=== PATIENT | female | born 1965 | race Caucasian/White ===

== ENCOUNTER 2018-03-09 14:15 | Emergency (ER) | payer OTHER ==
--- NOTE | 2018-03-09 14:46 | ERPHSYRPT ---
- History of Present Illness Time Seen by Provider: 03/09/18 14:38 Historian: patient Exam Limitations: no limitations Patient Subjective Stated Complaint: Pt states "I woke up monday morning and I was having chest pain that was also in my arm and back. It hurts more when I move so I just thought it was a muscle strain, but I did not do anything strenuous." Triage Nursing Assessment: Pt alert and oriented X 3, skin pwd. Pt ambulates with an upright steady gait, able to speak in clear full sentences. PT in no apprent respiratory distress, pt laughing and jokeing. Physician History: The patient is a 52-year-old female complaining that she woke up 2 days ago on Monday morning with left upper chest pain that was radiating around under her left arm. She went to work on Monday. She had no difficulties. The pain continued and has now moved up into her left upper shoulder and her left neck. She denies shortness of breath. She denies nausea or vomiting. It hurts when she raises her left arm. She has no history of coronary artery disease. Her past medical history is significant for hypertension. She did not take her antihypertensive medicine this morning. Timing/Duration: day(s), constant, gradual onset Activities at Onset: rest Quality: aching Location: substernal Chest Pain Radiation: neck, arm Severity of Pain-Max: mild Severity of Pain-Current: mild Modifying Factors: Improves With: movement Associated Symptoms: denies symptoms Prior Chest Pain/Cardiac Workup: no prior chest pain Nitro Today/Relief: no nitro taken today Aspirin Treatment Today: no aspirin today Allergies/Adverse Reactions: levofloxacin [From Levaquin] Allergy (Mild, Verified 06/04/12 08:13) rash, itching morphine Allergy (Verified 06/04/12 09:55) Home Medications: Furosemide 40 mg [Lasix 40 MG] 40 mg PO DAILY 08/08/12 [History] Levothyroxine Sodium [Synthroid] 200 mcg PO DAILY 08/09/12 [History] Lisinopril 10 mg [Zestril 10 MG] 10 mg PO DAILY 08/09/12 [History] Hx Tetanus, Diphtheria Vaccination/Date Given: No Hx Influenza Vaccination/Date Given: Yes Hx Pneumococcal Vaccination/Date Given: No Immunizations Up to Date: Yes - Review of Systems Constitutional: No Fever, No Chills Eyes: No Symptoms Ears, Nose, & Throat: No Symptoms Respiratory: No Cough, No Dyspnea Cardiac: Chest Pain Abdominal/Gastrointestinal: No Abdominal Pain, No Nausea, No Vomiting, No Diarrhea Genitourinary Symptoms: No Dysuria Musculoskeletal: Neck Pain Skin: No Rash Neurological: No Dizziness, No Focal Weakness, No Sensory Changes Psychological: No Symptoms Endocrine: No Symptoms Hematologic/Lymphatic: No Symptoms Immunological/Allergic: No Symptoms All Other Systems: Reviewed and Negative - Past Medical History Pertinent Past Medical History: Yes Neurological History: No Pertinent History ENT History: No Pertinent History Cardiac History: Hypertension Respiratory History: No Pertinent History Endocrine Medical History: No Pertinent History Musculoskeletal History: No Pertinent History GI Medical History: No Pertinent History History: No Pertinent History Psycho-Social History: No Pertinent History Female Reproductive Disorders: Fibroids - Past Surgical History Past Surgical History: Yes Neuro Surgical History: No Pertinent History Cardiac: No Pertinent History Respiratory: No Pertinent History Gastrointestinal: Cholecystectomy Genitourinary: No Pertinent History Musculoskeletal: No Pertinent History, Orthopedic Surgery Female Surgical History: No Pertinent History Other Surgical History: FOOT SURGERY - Social History Smoking Status: Never smoker How long have you smoked: 4yrs Exposure to second hand smoke: No Drug Use: none Patient Lives Alone: Yes - Female History Hx Last Menstrual Period: years ago Hx Now: No - Nursing Vital Signs Nursing Vital Signs: Initial Vital Signs Temperature 98.6 F 03/09/18 14:15 Pulse Rate 112 H 03/09/18 14:15 Respiratory Rate 18 03/09/18 14:15 Blood Pressure 196/125 03/09/18 14:15 O2 Sat by Pulse Oximetry 98 03/09/18 14:15 Pain Scale Pain Intensity 6 - Physical Exam General Appearance: no apparent distress, alert Eye Exam: PERRL/EOMI, eyes nml inspection Ears, Nose, Throat Exam: normal ENT inspection, moist mucous membranes Neck Exam: other (left side tenderness) Respiratory Exam: chest tenderness (left upper anterior, and left shoulder.) Cardiovascular Exam: regular rate/rhythm, normal heart sounds Gastrointestinal/Abdomen Exam: soft, No tenderness, No mass Pelvic Exam: not done Rectal Exam: not done Back Exam: normal inspection, No CVA tenderness, No vertebral tenderness Extremity Exam: normal inspection, normal range of motion Neurologic Exam: alert, oriented x 3, cooperative, normal mood/affect, sensation nml, No motor deficits Skin Exam: normal color, warm, dry SpO2 Interpretation: normal SpO2: 98 Oxygen Delivery: Room Air - Course EKG Interpreted by Me: RATE, Sinus Rhythm, NORMAL AXIS, NORMAL INTERVALS, NORMAL QRS, NORMAL ST-T - Radiology Exams Chest X-ray Interpretation: Reviewed by me, Teleradiologist Report (per Dr Natalie villasenor get around), Negative (there is 91) Ordered Tests: Active Orders 24 hr Category Date Time Status Mental Health Aide STAT Care 03/09/18 14:53 Active EKG-ER Only STAT Care 03/09/18 14:52 Active IV Insertion STAT Care 03/09/18 14:52 Active Pulse Oximetry (ED) STAT Care 03/09/18 14:52 Active CHEST 2 VIEWS (PA AND LAT) Stat Exams 03/09/18 14:52 Completed CBC W DIFF Stat Lab 03/09/18 14:52 Completed CMP Stat Lab 03/09/18 14:52 Completed TROPONIN Q3H Lab 03/09/18 15:00 Completed TROPONIN Q3H Lab 03/09/18 18:00 Ordered TROPONIN Q3H Lab 03/09/18 21:00 Ordered TROPONIN Q3H Lab 03/10/18 00:00 Ordered TROPONIN Q3H Lab 03/10/18 03:00 Ordered Medication Summary Discontinued Medications Generic Name Dose Route Start Last Admin Trade Name Freq PRN Reason Stop Dose Admin Ketorolac Tromethamine 30 mg 03/09/18 14:53 03/09/18 15:06 Toradol 30 Mg Injection IV 03/09/18 14:54 30 mg STAT ONE Administration Ketorolac Tromethamine Confirm 03/09/18 14:57 Toradol 30 Mg Injection Administered 03/09/18 14:58 Dose 30 mg .ROUTE .STK-MED ONE Labetalol HCl 20 mg 03/09/18 14:53 03/09/18 15:06 Trandate 20 Mg/5 Ml Syringe IV 03/09/18 14:54 20 mg STAT ONE Administration Labetalol HCl Confirm 03/09/18 14:57 Trandate 20 Mg/5 Ml Syringe Administered 03/09/18 14:58 Dose 20 mg IV .STK-MED ONE Lab/Rad Data: Laboratory Result Diagrams 03/09/18 14:52 03/09/18 14:52 Laboratory Results 03/09/18 03/09/18 03/09/18 Range/Units 15:00 14:52 14:52 WBC 13.5 H (4.0-10.5) K/mm3 RBC 5.65 H (4.1-5.4) M/mm3 Hgb 14.0 (12.0-16.0) gm/dl Hct 44.1 (35-47) % MCV 78.1 (78-100) fl MCH 24.7 L (26-32) pg MCHC 31.7 L (32-36) g/dl RDW 15.8 H (11.5-14.0) % Plt Count 341 (150-450) K/mm3 MPV 11.6 H (6-9.5) fl Gran % 61.4 (36.0-66.0) % Eos # (Auto) 0.19 (0-0.5) Absolute Lymphs (auto) 3.84 (1.0-4.6) Absolute Monos (auto) 1.12 (0.0-1.3) Lymphocytes % 28.5 (24.0-44.0) % Monocytes % 8.3 (0.0-12.0) % Eosinophils % 1.4 (0.00-5.0) % Basophils % 0.4 (0.0-0.4) % Absolute Granulocytes 8.26 H (1.4-6.9) Basophils # 0.06 (0-0.4) Sodium 140 (137-145) mmol/L Potassium 3.9 (3.5-5.1) mmol/L Chloride 101 (98-107) mmol/L Carbon Dioxide 27 (22-30) mmol/L Anion Gap 14.8 (5-15) MEQ/L BUN 16 (7-17) mg/dL Creatinine 0.67 (0.52-1.04) mg/dL Estimated GFR > 60.0 ML/MIN Glucose 131 H (74-106) mg/dL Calcium 9.5 (8.4-10.2) mg/dL Total Bilirubin 0.30 (0.2-1.3) mg/dL AST 18 (14-36) U/L ALT 23 (0-35) U/L Alkaline Phosphatase 132 H (38-126) U/L Troponin I < 0.012 (0.000-0.034) ng/mL Serum Total Protein 7.3 (6.3-8.2) g/dL Albumin 4.2 (3.5-5.0) g/dL - Progress Progress: improved Counseled pt/family regarding: lab results, diagnosis, need for follow-up, rad results - Departure Time of Disposition: 15:47 Departure Disposition: Home Clinical Impression: Musculoskeletal pain Condition: Stable Critical Care Time: No Critical Care Time(excluding separately billable procedures): 30-74 minutes Referrals: VALENTIN HERNANDEZ MD [Primary Care Provider] - Additional Instructions: You have musculoskeletal pain of your left shoulder and upper left chest. You were given Toradol 30 mg by IV in the ER. Your chest x-ray and your laboratory results were all good. The specific test of your heart was negative for any damage. Your EKG was normal. Take Tylenol and ibuprofen as needed. Apply ice to the area as needed.
[2018-03-09] MEDS ORDERED: TORAdol 30 mg Injection IV ONE (14:53)
[2018-03-09] MEDS ORDERED: TRANDATE 20 MG/5 ML SYRINGE IV ONE ×2 (14:53→14:57)
[2018-03-09] MEDS ORDERED: TORAdol 30 mg Injection ONE (14:57)
[2018-03-09 15:00] LABS: BASOPHIL % 0.4 % (0.0-0.4); Basophil (Absolute #) 0.06 (0-0.4); Eosinophil % 1.4 % (0.00-5.0); Eosinophil (Absolute #) 0.19 (0-0.5); Granulocyte Absolute (ANC) 8.26 (1.4-6.9); Granulocytes % 61.4 % (36.0-66.0); Hematocrit 44.1 % (35-47); Lymphocyte (Absolute #) 3.84 (1.0-4.6); Lymphocytes % 28.5 % (24.0-44.0); Mean Cell Volume 78.1 fl (78-100); Mean Corpuscular Hgb Concent. 31.7 g/dl (32-36); Mean Platelet Volume 11.6 fl (6-9.5); Monocyte (Absolute #) 1.12 (0.0-1.3); Monocytes % 8.3 % (0.0-12.0); Platelet Count 341 K/mm3 (150-450); Red Blood Count 5.65 M/mm3 (4.1-5.4); Red Cell Distribution Width 15.8 % (11.5-14.0); White Blood Count 13.5 K/mm3 (4.0-10.5)
[2018-03-09 15:09] LABS: Mean Corpuscular Hemoglobin 24.7 pg (26-32)
[2018-03-09 15:10] VITALS: O2SAT 98
[2018-03-09 15:10] LABS: ALBUMIN 4.2 g/dL (3.5-5.0); ALKALINE PHOSPHATASE 132 U/L (38-126); ANION GAP 14.8 MEQ/L (5-15); BLOOD UREA NITROGEN 16 mg/dL (7-17); CHLORIDE 101 mmol/L (98-107); Calcium 9.5 mg/dL (8.4-10.2); Carbon Dioxide 27 mmol/L (22-30); Creatinine 1 0.67 mg/dL (0.52-1.04); Glucose 131 mg/dL (74-106); Potassium 3.9 mmol/L (3.5-5.1); SGOT/AST 18 U/L (14-36); SGPT/ALT 23 U/L (0-35); SODIUM 140 mmol/L (137-145); Total Protein 7.3 g/dL (6.3-8.2)
--- NOTE | 2018-03-09 15:22 | XRAY ---
Indication: Chest pain. Comparison: April 18, 2011. PA/lateral chest again demonstrates normal heart and lungs. Bony thorax intact again with mild degenerative changes. No new/acute findings.
[2018-03-09 15:53] VITALS: BP 156/101; PULSE 72
== END 2018-03-09 16:00 | disposition home or self-care (01) ==
LOC: ED 14:15
DX: M79.18 Myalgia, other site (principal); R07.9 Chest pain, unspecified; M54.2 Cervicalgia; M25.512 Pain in left shoulder; Z79.899 Other long term (current) drug therapy
CPT/HCPCS: 36000; 36415; 71046; 80053; 84484; 85025; 93005; 93041; 96374; 96375; 99284; J1885

== ENCOUNTER 2018-08-03 15:56 | Observation (INO) | payer OTHER, SELFPAY ==
[2018-08-03] MEDS ORDERED: Sodium Chloride 0.9% 1000 ML 1,000 ML IV STA (17:00)
--- NOTE | 2018-08-03 17:06 | ERPHSYRPT ---
- History of Present Illness Time Seen by Provider: 08/03/18 16:54 Source: patient Exam Limitations: no limitations Patient Subjective Stated Complaint: Pt states "I have been to [facility] twice in the past two weeks, I was just over to [facility] office and she gave me some orders then she said to get faster results to just come to the ED. I have had body aches, chills, and fever for two weeks." Triage Nursing Assessment: PT alert and oriented X 3, skin pwd Pt ambulates with an upright steady gait, able to speak in clear full sentences. PT in no apprent respiratory distress. Physician History: 53-year-old white female with history of high blood pressure fibroids arrives with complaint of general malaise, aches, fever, symptoms going on since 22 July. Patient without vomiting positive nausea positive diarrhea. Patient has been seen by [facility] 2 times seen by her clinic 2 times she was seen today by her clinic and told to present to the emergency room. Past medical history includes high blood pressure, fibroids. Past surgical history includes cholecystectomy, orthopedic surgery, foot surgery , total hysterectomy Timing/Duration: week(s) (symptoms for 3 weeks) Severity: moderate Modifying Factors: Improves With: nothing Associated Symptoms: nausea, abdominal pain (left lower quadrant abdominal pian) , fever, malaise, No vomiting, No shortness of breath, No heartburn, No diaphoresis, No chills, No chest pain, No headaches, No loss of appetite, No rash, No syncope, No seizure, No weakness Allergies/Adverse Reactions: levofloxacin [From Levaquin] Allergy (Mild, Verified 06/04/12 08:13) rash, itching morphine Allergy (Verified 06/04/12 09:55) Home Medications: Furosemide 40 mg [Lasix 40 MG] 40 mg PO DAILY 08/08/12 [History] Levothyroxine Sodium [Synthroid] 200 mcg PO DAILY 08/09/12 [History] Lisinopril 10 mg [Zestril 10 MG] 10 mg PO DAILY 08/09/12 [History] Hx Tetanus, Diphtheria Vaccination/Date Given: No Hx Influenza Vaccination/Date Given: Yes Hx Pneumococcal Vaccination/Date Given: No Immunizations Up to Date: Yes - Review of Systems Constitutional: Malaise, No Fever, No Chills, No Fatigue, No Lethargy, No Night Sweats, No Weakness, No Weight Loss Eyes: No Symptoms Ears, Nose, & Throat: No Symptoms, No Ear Pain, No Ear Discharge, No Hearing Changes, No Tinnitus, No Nose Pain, No Nose Congestion, No Nose Discharge, No Sinus Drainage, No Epistaxis, No Mouth Pain, No Mouth Swelling, No Loose Teeth, No Throat Pain, No Throat Swelling, No Hoarse, No Painful Swallowing, No Snoring , No Stridor Respiratory: Cough, No Dyspnea, No Dyspnea on Exertion (PURCELL), No Stridor, No Wheezing Cardiac: No Chest Pain, No Edema, No Syncope Abdominal/Gastrointestinal: Abdominal Pain (left lower quadrant abdominal pain) , Nausea, Diarrhea, No Vomiting, No Constipation, No Hematemesis, No Hematochezia, No Melena, No Dysphagia, No Appetite Changes Genitourinary Symptoms: No Dysuria Musculoskeletal: No Symptoms Skin: No Rash Neurological: No Dizziness, No Focal Weakness, No Sensory Changes Psychological: No Symptoms Endocrine: No Symptoms All Other Systems: Reviewed and Negative - Past Medical History Pertinent Past Medical History: Yes Neurological History: No Pertinent History ENT History: No Pertinent History Cardiac History: Hypertension Respiratory History: No Pertinent History Endocrine Medical History: No Pertinent History Musculoskeletal History: No Pertinent History GI Medical History: No Pertinent History History: No Pertinent History Psycho-Social History: No Pertinent History Female Reproductive Disorders: Fibroids - Past Surgical History Past Surgical History: Yes Neuro Surgical History: No Pertinent History Cardiac: No Pertinent History Respiratory: No Pertinent History Gastrointestinal: Cholecystectomy Genitourinary: No Pertinent History Musculoskeletal: No Pertinent History, Orthopedic Surgery Female Surgical History: No Pertinent History Other Surgical History: FOOT SURGERY - Social History Smoking Status: Former smoker How long have you smoked: 4yrs Exposure to second hand smoke: No Drug Use: none Patient Lives Alone: Yes - Female History Hx Last Menstrual Period: total hysterectomy Hx Now: No - Nursing Vital Signs Nursing Vital Signs: Initial Vital Signs Temperature 99.6 F 08/03/18 16:07 Pulse Rate 116 H 08/03/18 16:07 Respiratory Rate 20 08/03/18 16:07 Blood Pressure 143/88 08/03/18 16:07 O2 Sat by Pulse Oximetry 94 L 08/03/18 16:07 Pain Scale Pain Intensity 6 - Physical Exam General Appearance: no apparent distress, alert Eye Exam: PERRL/EOMI, eyes nml inspection Ears, Nose, Throat Exam: normal ENT inspection, TMs normal, pharynx normal, moist mucous membranes Neck Exam: normal inspection, non-tender, supple, full range of motion Respiratory Exam: normal breath sounds, lungs clear, No respiratory distress Cardiovascular Exam: regular rate/rhythm, normal heart sounds, normal peripheral pulses Gastrointestinal/Abdomen Exam: soft, normal bowel sounds, tenderness (left lower quadrant tenderness), No distention, No mass, No guarding, No ecchymosis, No pulsatile mass, No rebound, No hernia, No hepatomegaly, No organomegaly, No splenomegaly Back Exam: normal inspection, normal range of motion, No CVA tenderness, No vertebral tenderness Extremity Exam: normal inspection Neurologic Exam: alert, oriented x 3, cooperative, bull riveter II-XII nml as tested, normal mood/affect, nml cerebellar function, nml station & gait, sensation nml, No motor deficits Skin Exam: normal color, warm, dry, No rash SpO2 Interpretation: normal (94%) SpO2: 94 - Course Nursing assessment & vital signs reviewed: Yes - Radiology Exams Chest X-ray Interpretation: Interpreted by me (chest x-ray: No acute disease process noted. Compared to March 09 2018) - CT Exams Abdomen/Pelvis CT Interpretation: Discussed w/radiologist (CT abdomen and pelvis: Impression compared to March 16, 2012, stable small hiatal hernia and small left adrenal adenoma. new mild wall thickening left hemicolon with fluid leveling. Possible colitis. No free fluid or air.new moderate sized infraumbilical fatty ventral hernia.) Ordered Tests: Active Orders 24 hr Category Date Time Status IV Insertion STAT Care 08/03/18 17:00 Active ABDOMEN AND PELVIS W/0 CONTRAS [CT] Stat Exams 08/03/18 18:10 Taken CHEST 1 VIEW (PORTABLE) Stat Exams 08/03/18 17:00 Taken AMYLASE Stat Lab 08/03/18 17:10 Completed BLOOD CULTURE Stat Lab 08/03/18 17:20 Received CBC W DIFF Stat Lab 08/03/18 17:10 Completed CMP Stat Lab 08/03/18 17:10 Completed LIPASE Stat Lab 08/03/18 17:10 Completed Howard Screen Stat Lab 08/03/18 17:10 Completed TSH [TSH, 3RD Generation] Stat Lab 08/03/18 17:10 Completed UA W/RFX UR CULTURE Stat Lab 08/03/18 19:12 Completed Medication Summary Discontinued Medications Generic Name Dose Route Start Last Admin Trade Name Sonia PRN Reason Stop Dose Admin Sodium Chloride 1,000 mls @ 999 mls/hr 08/03/18 17:00 08/03/18 18:53 Sodium Chloride 0.9% 1000 Ml IV 08/03/18 18:00 Infused .Q1H1M STA Infusion Sodium Chloride Confirm 08/03/18 17:13 Sodium Chloride 0.9% 1000 Ml Administered 08/03/18 17:14 Dose 1,000 mls @ ud .ROUTE .STK-MED ONE Lab/Rad Data: Laboratory Result Diagrams 08/03/18 17:10 08/03/18 17:10 Laboratory Results 08/03/18 08/03/18 08/03/18 Range/Units 19:12 17:10 17:10 WBC (4.0-10.5) K/mm3 RBC (4.1-5.4) M/mm3 Hgb (12.0-16.0) gm/dl Hct (35-47) % MCV (78-100) fl MCH (26-32) pg MCHC (32-36) g/dl RDW (11.5-14.0) % Plt Count (150-450) K/mm3 MPV (6-9.5) fl Gran % (36.0-66.0) % Eos # (Auto) (0-0.5) Absolute Lymphs (auto) (1.0-4.6) Absolute Monos (auto) (0.0-1.3) Lymphocytes % (24.0-44.0) % Monocytes % (0.0-12.0) % Eosinophils % (0.00-5.0) % Basophils % (0.0-0.4) % Absolute Granulocytes (1.4-6.9) Basophils # (0-0.4) Sodium (137-145) mmol/L Potassium (3.5-5.1) mmol/L Chloride (98-107) mmol/L Carbon Dioxide (22-30) mmol/L Anion Gap (5-15) MEQ/L BUN (7-17) mg/dL Creatinine (0.52-1.04) mg/dL Estimated GFR ML/MIN Glucose (74-106) mg/dL Calcium (8.4-10.2) mg/dL Total Bilirubin (0.2-1.3) mg/dL AST (14-36) U/L ALT (0-35) U/L Alkaline Phosphatase (38-126) U/L Serum Total Protein (6.3-8.2) g/dL Albumin (3.5-5.0) g/dL Amylase (30-110) U/L Lipase (23-300) U/L Free T4 1.33 (0.76-1.46) ng/dL TSH 3rd Generation (0.47-4.68) mIU/L Urine Color CLAUDIA (YELLOW) Urine Appearance SLIGHTLY CLOUDY (CLEAR) Urine pH 5.0 (5-6) Ur Specific Luana 1.018 (1.005-1.025) Urine Protein 30 (Negative) Urine Ketones NEGATIVE (NEGATIVE) Urine Blood NEGATIVE (0-5) Lamont/ul Urine Nitrite NEGATIVE (NEGATIVE) Urine Bilirubin NEGATIVE (NEGATIVE) Urine Urobilinogen NEGATIVE (0-1) mg/dL Ur Leukocyte Esterase NEGATIVE (NEGATIVE) Urine WBC (Auto) 0-2 (0-5) /HPF Urine RBC (Auto) NONE (0-2) /HPF U Epithel Cells (Auto) RARE (FEW) /HPF Urine Bacteria (Auto) FEW (NEGATIVE) /HPF Urine Mucus (Auto) SLIGHT (NEGATIVE) /HPF Urine Culture Reflexed NO (NO) Urine Glucose NEGATIVE (NEGATIVE) mg/dL Monoscreen (Negative) Group A Strep Antibody NEGATIVE (NEGATIVE) Slides for Path Review 08/03/18 08/03/18 08/03/18 Range/Units 17:10 17:10 17:10 WBC (4.0-10.5) K/mm3 RBC (4.1-5.4) M/mm3 Hgb (12.0-16.0) gm/dl Hct (35-47) % MCV (78-100) fl MCH (26-32) pg MCHC (32-36) g/dl RDW (11.5-14.0) % Plt Count (150-450) K/mm3 MPV (6-9.5) fl Gran % (36.0-66.0) % Eos # (Auto) (0-0.5) Absolute Lymphs (auto) (1.0-4.6) Absolute Monos (auto) (0.0-1.3) Lymphocytes % (24.0-44.0) % Monocytes % (0.0-12.0) % Eosinophils % (0.00-5.0) % Basophils % (0.0-0.4) % Absolute Granulocytes (1.4-6.9) Basophils # (0-0.4) Sodium 136 L (137-145) mmol/L Potassium 3.7 (3.5-5.1) mmol/L Chloride 99 (98-107) mmol/L Carbon Dioxide 27 (22-30) mmol/L Anion Gap 13.9 (5-15) MEQ/L BUN 14 (7-17) mg/dL Creatinine 0.92 (0.52-1.04) mg/dL Estimated GFR > 60.0 ML/MIN Glucose 140 H (74-106) mg/dL Calcium 8.9 (8.4-10.2) mg/dL Total Bilirubin 0.70 (0.2-1.3) mg/dL AST 36 (14-36) U/L ALT 34 (0-35) U/L Alkaline Phosphatase 118 (38-126) U/L Serum Total Protein 7.4 (6.3-8.2) g/dL Albumin 3.9 (3.5-5.0) g/dL Amylase 57 (30-110) U/L Lipase 18 L (23-300) U/L Free T4 (0.76-1.46) ng/dL TSH 3rd Generation 0.456 L (0.47-4.68) mIU/L Urine Color (YELLOW) Urine Appearance (CLEAR) Urine pH (5-6) Ur Specific Luana (1.005-1.025) Urine Protein (Negative) Urine Ketones (NEGATIVE) Urine Blood (0-5) Lamont/ul Urine Nitrite (NEGATIVE) Urine Bilirubin (NEGATIVE) Urine Urobilinogen (0-1) mg/dL Ur Leukocyte Esterase (NEGATIVE) Urine WBC (Auto) (0-5) /HPF Urine RBC (Auto) (0-2) /HPF U Epithel Cells (Auto) (FEW) /HPF Urine Bacteria (Auto) (NEGATIVE) /HPF Urine Mucus (Auto) (NEGATIVE) /HPF Urine Culture Reflexed (NO) Urine Glucose (NEGATIVE) mg/dL Monoscreen NEGATIVE (Negative) Group A Strep Antibody (NEGATIVE) Slides for Path Review 08/03/18 Range/Units 17:10 WBC 19.7 H (4.0-10.5) K/mm3 RBC 6.26 H* (4.1-5.4) M/mm3 Hgb 15.4 (12.0-16.0) gm/dl Hct 47.4 H (35-47) % MCV 75.7 L (78-100) fl MCH 24.6 L (26-32) pg MCHC 32.5 (32-36) g/dl RDW 17.7 H (11.5-14.0) % Plt Count 300 (150-450) K/mm3 MPV 10.9 H (6-9.5) fl Gran % 82.8 H (36.0-66.0) % Eos # (Auto) 0.01 (0-0.5) Absolute Lymphs (auto) 1.75 (1.0-4.6) Absolute Monos (auto) 1.58 H (0.0-1.3) Lymphocytes % 8.9 L (24.0-44.0) % Monocytes % 8.0 (0.0-12.0) % Eosinophils % 0.1 (0.00-5.0) % Basophils % 0.2 (0.0-0.4) % Absolute Granulocytes 16.36 H (1.4-6.9) Basophils # 0.04 (0-0.4) Sodium (137-145) mmol/L Potassium (3.5-5.1) mmol/L Chloride (98-107) mmol/L Carbon Dioxide (22-30) mmol/L Anion Gap (5-15) MEQ/L BUN (7-17) mg/dL Creatinine (0.52-1.04) mg/dL Estimated GFR ML/MIN Glucose (74-106) mg/dL Calcium (8.4-10.2) mg/dL Total Bilirubin (0.2-1.3) mg/dL AST (14-36) U/L ALT (0-35) U/L Alkaline Phosphatase (38-126) U/L Serum Total Protein (6.3-8.2) g/dL Albumin (3.5-5.0) g/dL Amylase (30-110) U/L Lipase (23-300) U/L Free T4 (0.76-1.46) ng/dL TSH 3rd Generation (0.47-4.68) mIU/L Urine Color (YELLOW) Urine Appearance (CLEAR) Urine pH (5-6) Ur Specific Luana (1.005-1.025) Urine Protein (Negative) Urine Ketones (NEGATIVE) Urine Blood (0-5) Lamont/ul Urine Nitrite (NEGATIVE) Urine Bilirubin (NEGATIVE) Urine Urobilinogen (0-1) mg/dL Ur Leukocyte Esterase (NEGATIVE) Urine WBC (Auto) (0-5) /HPF Urine RBC (Auto) (0-2) /HPF U Epithel Cells (Auto) (FEW) /HPF Urine Bacteria (Auto) (NEGATIVE) /HPF Urine Mucus (Auto) (NEGATIVE) /HPF Urine Culture Reflexed (NO) Urine Glucose (NEGATIVE) mg/dL Monoscreen (Negative) Group A Strep Antibody (NEGATIVE) Slides for Path Review YES - Progress Progress: improved Progress Note: 08/03/18 19:40 Patient is discussed with Dr. Martínez. Will place patient on Flagyl had considered Levaquin however patient is allergic therefore we'll place her on Bactrim DS one orally twice a day. Will place patient on observation for colitis provide IV fluids and Zofran pain medications. - Departure Departure Disposition: Home Clinical Impression: Colitis Abdominal pain Qualifiers: Abdominal location: left lower quadrant Qualified Code(s): R10.32 - Left lower quadrant pain Condition: Fair Critical Care Time: No Referrals: ERIKA CHEN [Primary Care Provider] -
[2018-08-03] MEDS ORDERED: Sodium Chloride 0.9% 1000 ML 1,000 ML ONE (17:13)
[2018-08-03 17:31] LABS: BASOPHIL % 0.2 % (0.0-0.4); Basophil (Absolute #) 0.04 (0-0.4); Eosinophil % 0.1 % (0.00-5.0); Eosinophil (Absolute #) 0.01 (0-0.5); Granulocyte Absolute (ANC) 16.36 (1.4-6.9); Granulocytes % 82.8 % (36.0-66.0); Hematocrit 47.4 % (35-47); Hemoglobin 15.4 gm/dl (12.0-16.0); Lymphocyte (Absolute #) 1.75 (1.0-4.6); Lymphocytes % 8.9 % (24.0-44.0); Mean Cell Volume 75.7 fl (78-100); Mean Corpuscular Hemoglobin 24.6 pg (26-32); Mean Corpuscular Hgb Concent. 32.5 g/dl (32-36); Mean Platelet Volume 10.9 fl (6-9.5); Monocyte (Absolute #) 1.58 (0.0-1.3); Platelet Count 300 K/mm3 (150-450); Red Blood Count 6.26 M/mm3 (4.1-5.4); Red Cell Distribution Width 17.7 % (11.5-14.0); White Blood Count 19.7 K/mm3 (4.0-10.5)
[2018-08-03 17:39] LABS: ALBUMIN 3.9 g/dL (3.5-5.0); ALKALINE PHOSPHATASE 118 U/L (38-126); AMYLASE 57 U/L (30-110); ANION GAP 13.9 MEQ/L (5-15); BLOOD UREA NITROGEN 14 mg/dL (7-17); CHLORIDE 99 mmol/L (98-107); Calcium 8.9 mg/dL (8.4-10.2); Carbon Dioxide 27 mmol/L (22-30); Creatinine 1 0.92 mg/dL (0.52-1.04); Glucose 140 mg/dL (74-106); LIPASE 18 U/L (23-300); Potassium 3.7 mmol/L (3.5-5.1); SGOT/AST 36 U/L (14-36); SGPT/ALT 34 U/L (0-35); SODIUM 136 mmol/L (137-145); Total Protein 7.4 g/dL (6.3-8.2)
[2018-08-03 19:16] LABS: Slide Review 1 YES
[2018-08-03 19:23] LABS: Appearance SLIGHTLY CLOUDY (CLEAR); Bacteria FEW /HPF (NEGATIVE); Bilirubin NEGATIVE (NEGATIVE); Blood NEGATIVE Ery/ul (0-5); Epithelial Cells RARE /HPF (FEW); Glucose NEGATIVE (NEGATIVE); Ketones NEGATIVE (NEGATIVE); Leukocyte Esterase NEGATIVE (NEGATIVE); Mucus SLIGHT /HPF (NEGATIVE); Nitrite NEGATIVE (NEGATIVE); Protein,Urine Dip 30 (Negative); Specific Gravity 1.018 (1.005-1.025); Urobilinogen NEGATIVE mg/dL (0-1); WBC 0-2 /HPF (0-5)
[2018-08-03] MEDS ORDERED: FLAGYL 500 MG IVPB 500 MG/100 ML BAG IV STA (19:40)
[2018-08-03] MEDS ORDERED: Zofran 4 MG/2 ML VIAL IV PRN (20:37)
[2018-08-03] MEDS ORDERED: FLAGYL 500 MG IVPB 500 MG/100 ML BAG IV ONE (20:54)
[2018-08-03] MEDS: TYLENOL 325 MG PO PRN (20:56)
[2018-08-03] MEDS: Sodium Chloride 0.9% 1000 ML 1,000 ML IV SCH (20:58)
[2018-08-03] MEDS ORDERED: BACTRIM DS TABLET PO SCH (22:00)
[2018-08-04] MEDS: TYLENOL 325 MG PO PRN ×4 (01:37→18:39)
[2018-08-04] MEDS: FLAGYL 500 MG IVPB 500 MG/100 ML BAG IV SCH ×4 (01:38→17:21)
[2018-08-04 05:42] LABS: BASOPHIL % 0.2 % (0.0-0.4); Basophil (Absolute #) 0.03 (0-0.4); Eosinophil % 0.1 % (0.00-5.0); Eosinophil (Absolute #) 0.01 (0-0.5); Granulocyte Absolute (ANC) 14.87 (1.4-6.9); Hematocrit 44.4 % (35-47); Hemoglobin 14.1 gm/dl (12.0-16.0); Lymphocyte (Absolute #) 1.22 (1.0-4.6); Lymphocytes % 6.9 % (24.0-44.0); Mean Cell Volume 76.8 fl (78-100); Mean Corpuscular Hgb Concent. 31.8 g/dl (32-36); Mean Platelet Volume 10.8 fl (6-9.5); Monocyte (Absolute #) 1.55 (0.0-1.3); Monocytes % 8.8 % (0.0-12.0); Platelet Count 251 K/mm3 (150-450); Red Blood Count 5.78 M/mm3 (4.1-5.4); Red Cell Distribution Width 16.3 % (11.5-14.0); White Blood Count 17.7 K/mm3 (4.0-10.5)
[2018-08-04 05:57] LABS: Mean Corpuscular Hemoglobin 24.3 pg (26-32)
[2018-08-04 06:04] LABS: ALBUMIN 3.2 g/dL (3.5-5.0); ALKALINE PHOSPHATASE 99 U/L (38-126); ANION GAP 8.6 MEQ/L (5-15); BLOOD UREA NITROGEN 14 mg/dL (7-17); CHLORIDE 103 mmol/L (98-107); Calcium 8.3 mg/dL (8.4-10.2); Carbon Dioxide 28 mmol/L (22-30); Creatinine 1 0.79 mg/dL (0.52-1.04); Glucose 135 mg/dL (74-106); Potassium 3.5 mmol/L (3.5-5.1); SGOT/AST 37 U/L (14-36); SGPT/ALT 35 U/L (0-35); SODIUM 136 mmol/L (137-145); Total Protein 6.3 g/dL (6.3-8.2)
[2018-08-04 07:24] LABS: Slide Review 1 YES
--- NOTE | 2018-08-04 07:35 | XRAY ---
Indication: Left lower quadrant pain. Elevated WBC. Multiple contiguous axial images obtained through the abdomen and pelvis without contrast. Comparison: March 16, 2012. Lung bases are clear. Heart is not enlarged. Stable small hiatal hernia. Noncontrasted stomach and bowel loops appear nonobstructed. Previous reported appendectomy, cholecystectomy, and hysterectomy. There is now mild wall thickening involving the distal transverse and descending colon with fluid leveling, possible colitis. No free fluid/air. Stable 1 cm left adrenal adenoma. Remaining liver, pancreas, spleen, adrenal glands, kidneys, ureters, bladder, and aorta appear unremarkable for noncontrast exam. Osseous structures intact again with mild degenerative changes throughout the spine. New moderate sized fatty infraumbilical ventral hernia. Impression: 1. New left hemicolon bowel wall thickening with fluid leveling favoring colitis. 2. New fatty infraumbilical ventral hernia. 3. Stable small hiatal hernia and left adrenal adenoma. CTDI 28.15
--- NOTE | 2018-08-04 07:40 | XRAY ---
Indication: Fever and malaise. Comparison: March 09, 2018. Portable apical lordotic chest remains clear. Heart is not enlarged. Bony thorax intact again with mild degenerative changes. No new/acute findings.
--- NOTE | 2018-08-04 09:08 | PCM.HP ---
History of Present Illness - Chief Complaint Chief Complaint: left lower quadrant abdominal paincolitis History of Present Illness: is a 53 year old female who presented with several day history of worsening diarrhea and abdominal pain. she has no known fever, no vomiting. found in ER to have colitis. - Review of Systems Constitutional: No Fever, No Chills Eyes: No Symptoms Respiratory: No Cough, No Short Of Breath Cardiac: No Chest Pain, No Edema, No Syncope Abdominal/Gastrointestinal: Abdominal Pain, Diarrhea, No Nausea, No Vomiting Skin: No Rash All Other Systems: Reviewed and Negative Medications & Allergies Home Medications: Home Medication List Furosemide 40 mg [Lasix 40 MG] 40 mg PO DAILY 08/08/12 [History Confirmed 08/03/18] Levothyroxine Sodium [Synthroid] 200 mcg PO DAILY 08/09/12 [History Confirmed ] Lisinopril 10 mg [Zestril 10 MG] 10 mg PO DAILY 08/09/12 [History Confirmed 08/03/18] Levothyroxine Sodium 25 Mcg [Synthroid 25 Mcg] 25 mcg PO DAILY 08/03/18 [ History Confirmed 08/03/18] Allergies/Adverse Reactions: Allergies Allergy/AdvReac Type Severity Reaction Status Date / Time levofloxacin [From Levaquin] Allergy Mild Verified 06/04/12 08:13 morphine Allergy Verified 06/04/12 09:55 - Past Medical History Past Medical History: Yes Neurological History: No Pertinent History ENT History: No Pertinent History Cardiac History: Hypertension Respiratory History: No Pertinent History Endocrine Medical History: No Pertinent History Musculoskelatal History: No Pertinent History GI Medical History: No Pertinent History History: No Pertinent History Pyscho-Social History: No Pertinent History Reproductive Disorders: Fibroids - Female History Hx Last Menstrual Period: total hysterectomy Are you now?: No - Past Surgical History Past Surgical History: Yes Neuro Surgical History: No Pertinent History Cardiac History: No Pertinent History Respiratory Surgery: No Pertinent History GI Surgical History: Appendectomy, Cholecystectomy Genitourinary Surgical Hx: No Pertinent History Musculskeletal Surgical Hx: No Pertinent History, Orthopedic Surgery Female Surgical History: Hysterectomy Other Surgical History: FOOT SURGERY - Social History Smoking Status: Former smoker How long have you smoked: 4yrs Exposure to second hand smoke: No Alcohol: None Drug Use: none - Physical Exam Vital Signs: Vital Signs - 24 hr Temp Pulse Resp BP Pulse Ox 08/04/18 08:00 99.4 F 95 H 18 132/79 95 08/04/18 03:49 98.8 F 96 H 20 123/78 94 L 08/04/18 00:00 98.6 F 88 19 130/74 95 08/03/18 21:11 101.9 F 110 H 18 146/74 93 L 08/03/18 21:00 93 L 08/03/18 20:13 108 H 22 136/85 94 L 08/03/18 19:42 94 L 08/03/18 16:07 99.6 F 116 H 20 143/88 94 L General Appearance: no apparent distress, alert Neurologic Exam: alert, oriented x 3, cooperative, normal mood/affect, nml cerebellar function, nml station & gait, sensation nml, No motor deficits Eye Exam: PERRL/EOMI, eyes nml inspection Respiratory Exam: normal breath sounds, lungs clear, No respiratory distress Cardiovascular Exam: regular rate/rhythm, normal heart sounds, normal peripheral pulses Gastrointestinal/Abdomen Exam: tenderness (LLQ), No mass, No guarding, No rebound Extremity Exam: normal inspection, normal range of motion, pelvis stable Skin Exam: normal color, warm, dry, No rash Results - Labs Lab/Micro Results: Lab Results-Last 24 Hours 08/03/18 08/03/18 08/03/18 Range/Units 17:10 17:10 17:10 WBC 19.7 H (4.0-10.5) K/mm3 RBC 6.26 H* (4.1-5.4) M/mm3 Hgb 15.4 (12.0-16.0) gm/dl Hct 47.4 H (35-47) % MCV 75.7 L (78-100) fl MCH 24.6 L (26-32) pg MCHC 32.5 (32-36) g/dl RDW 17.7 H (11.5-14.0) % Plt Count 300 (150-450) K/mm3 MPV 10.9 H (6-9.5) fl Gran % 82.8 H (36.0-66.0) % Eos # (Auto) 0.01 (0-0.5) Absolute Lymphs (auto) 1.75 (1.0-4.6) Absolute Monos (auto) 1.58 H (0.0-1.3) Lymphocytes % 8.9 L (24.0-44.0) % Monocytes % 8.0 (0.0-12.0) % Eosinophils % 0.1 (0.00-5.0) % Basophils % 0.2 (0.0-0.4) % Absolute Granulocytes 16.36 H (1.4-6.9) Basophils # 0.04 (0-0.4) Sodium 136 L (137-145) mmol/L Potassium 3.7 (3.5-5.1) mmol/L Chloride 99 (98-107) mmol/L Carbon Dioxide 27 (22-30) mmol/L Anion Gap 13.9 (5-15) MEQ/L BUN 14 (7-17) mg/dL Creatinine 0.92 (0.52-1.04) mg/dL Estimated GFR > 60.0 ML/MIN Glucose 140 H (74-106) mg/dL Calcium 8.9 (8.4-10.2) mg/dL Total Bilirubin 0.70 (0.2-1.3) mg/dL AST 36 (14-36) U/L ALT 34 (0-35) U/L Alkaline Phosphatase 118 (38-126) U/L Serum Total Protein 7.4 (6.3-8.2) g/dL Albumin 3.9 (3.5-5.0) g/dL Amylase 57 (30-110) U/L Lipase 18 L (23-300) U/L Free T4 (0.76-1.46) ng/dL TSH 3rd Generation (0.47-4.68) mIU/L Urine Color (YELLOW) Urine Appearance (CLEAR) Urine pH (5-6) Ur Specific Bunn (1.005-1.025) Urine Protein (Negative) Urine Ketones (NEGATIVE) Urine Blood (0-5) Lamont/ul Urine Nitrite (NEGATIVE) Urine Bilirubin (NEGATIVE) Urine Urobilinogen (0-1) mg/dL Ur Leukocyte Esterase (NEGATIVE) Urine WBC (Auto) (0-5) /HPF Urine RBC (Auto) (0-2) /HPF U Epithel Cells (Auto) (FEW) /HPF Urine Bacteria (Auto) (NEGATIVE) /HPF Urine Mucus (Auto) (NEGATIVE) /HPF Urine Culture Reflexed (NO) Urine Glucose (NEGATIVE) mg/dL Monoscreen NEGATIVE (Negative) Group A Strep Antibody (NEGATIVE) Slides for Path Review YES 08/03/18 08/03/18 08/03/18 Range/Units 17:10 17:10 17:10 WBC (4.0-10.5) K/mm3 RBC (4.1-5.4) M/mm3 Hgb (12.0-16.0) gm/dl Hct (35-47) % MCV (78-100) fl MCH (26-32) pg MCHC (32-36) g/dl RDW (11.5-14.0) % Plt Count (150-450) K/mm3 MPV (6-9.5) fl Gran % (36.0-66.0) % Eos # (Auto) (0-0.5) Absolute Lymphs (auto) (1.0-4.6) Absolute Monos (auto) (0.0-1.3) Lymphocytes % (24.0-44.0) % Monocytes % (0.0-12.0) % Eosinophils % (0.00-5.0) % Basophils % (0.0-0.4) % Absolute Granulocytes (1.4-6.9) Basophils # (0-0.4) Sodium (137-145) mmol/L Potassium (3.5-5.1) mmol/L Chloride (98-107) mmol/L Carbon Dioxide (22-30) mmol/L Anion Gap (5-15) MEQ/L BUN (7-17) mg/dL Creatinine (0.52-1.04) mg/dL Estimated GFR ML/MIN Glucose (74-106) mg/dL Calcium (8.4-10.2) mg/dL Total Bilirubin (0.2-1.3) mg/dL AST (14-36) U/L ALT (0-35) U/L Alkaline Phosphatase (38-126) U/L Serum Total Protein (6.3-8.2) g/dL Albumin (3.5-5.0) g/dL Amylase (30-110) U/L Lipase (23-300) U/L Free T4 1.33 (0.76-1.46) ng/dL TSH 3rd Generation 0.456 L (0.47-4.68) mIU/L Urine Color (YELLOW) Urine Appearance (CLEAR) Urine pH (5-6) Ur Specific Bunn (1.005-1.025) Urine Protein (Negative) Urine Ketones (NEGATIVE) Urine Blood (0-5) Lamont/ul Urine Nitrite (NEGATIVE) Urine Bilirubin (NEGATIVE) Urine Urobilinogen (0-1) mg/dL Ur Leukocyte Esterase (NEGATIVE) Urine WBC (Auto) (0-5) /HPF Urine RBC (Auto) (0-2) /HPF U Epithel Cells (Auto) (FEW) /HPF Urine Bacteria (Auto) (NEGATIVE) /HPF Urine Mucus (Auto) (NEGATIVE) /HPF Urine Culture Reflexed (NO) Urine Glucose (NEGATIVE) mg/dL Monoscreen (Negative) Group A Strep Antibody NEGATIVE (NEGATIVE) Slides for Path Review 08/03/18 08/04/18 08/04/18 Range/Units 19:12 05:35 05:35 WBC 17.7 H (4.0-10.5) K/mm3 RBC 5.78 H (4.1-5.4) M/mm3 Hgb 14.1 (12.0-16.0) gm/dl Hct 44.4 (35-47) % MCV 76.8 L (78-100) fl MCH 24.3 L (26-32) pg MCHC 31.8 L (32-36) g/dl RDW 16.3 H (11.5-14.0) % Plt Count 251 (150-450) K/mm3 MPV 10.8 H (6-9.5) fl Gran % 84.0 H (36.0-66.0) % Eos # (Auto) 0.01 (0-0.5) Absolute Lymphs (auto) 1.22 (1.0-4.6) Absolute Monos (auto) 1.55 H (0.0-1.3) Lymphocytes % 6.9 L (24.0-44.0) % Monocytes % 8.8 (0.0-12.0) % Eosinophils % 0.1 (0.00-5.0) % Basophils % 0.2 (0.0-0.4) % Absolute Granulocytes 14.87 H (1.4-6.9) Basophils # 0.03 (0-0.4) Sodium 136 L (137-145) mmol/L Potassium 3.5 (3.5-5.1) mmol/L Chloride 103 (98-107) mmol/L Carbon Dioxide 28 (22-30) mmol/L Anion Gap 8.6 (5-15) MEQ/L BUN 14 (7-17) mg/dL Creatinine 0.79 (0.52-1.04) mg/dL Estimated GFR > 60.0 ML/MIN Glucose 135 H (74-106) mg/dL Calcium 8.3 L (8.4-10.2) mg/dL Total Bilirubin 0.50 (0.2-1.3) mg/dL AST 37 H (14-36) U/L ALT 35 (0-35) U/L Alkaline Phosphatase 99 (38-126) U/L Serum Total Protein 6.3 (6.3-8.2) g/dL Albumin 3.2 L (3.5-5.0) g/dL Amylase (30-110) U/L Lipase (23-300) U/L Free T4 (0.76-1.46) ng/dL TSH 3rd Generation (0.47-4.68) mIU/L Urine Color CLAUDIA (YELLOW) Urine Appearance SLIGHTLY CLOUDY (CLEAR) Urine pH 5.0 (5-6) Ur Specific Bunn 1.018 (1.005-1.025) Urine Protein 30 (Negative) Urine Ketones NEGATIVE (NEGATIVE) Urine Blood NEGATIVE (0-5) Lamont/ul Urine Nitrite NEGATIVE (NEGATIVE) Urine Bilirubin NEGATIVE (NEGATIVE) Urine Urobilinogen NEGATIVE (0-1) mg/dL Ur Leukocyte Esterase NEGATIVE (NEGATIVE) Urine WBC (Auto) 0-2 (0-5) /HPF Urine RBC (Auto) NONE (0-2) /HPF U Epithel Cells (Auto) RARE (FEW) /HPF Urine Bacteria (Auto) FEW (NEGATIVE) /HPF Urine Mucus (Auto) SLIGHT (NEGATIVE) /HPF Urine Culture Reflexed NO (NO) Urine Glucose NEGATIVE (NEGATIVE) mg/dL Monoscreen (Negative) Group A Strep Antibody (NEGATIVE) Slides for Path Review YES - Radiology Impressions Radiology Exams & Impressions: Radiology Procedures Category Date Time Status ABDOMEN AND PELVIS W/0 CONTRAS [CT] Stat Exams 08/03/18 18:10 Completed CHEST 1 VIEW (PORTABLE) Stat Exams 08/03/18 17:00 Completed Assessment/Plan (1) Colitis Current Visit: Yes Status: Acute Assessment & Plan: slight improvement since admission, continue flagyl, with levaquin allergy will d/c bactrim and start on rocephin Code(s): K52.9 - NONINFECTIVE GASTROENTERITIS AND COLITIS, UNSPECIFIED (2) Abdominal pain Current Visit: Yes Status: Acute Qualifiers: Abdominal location: left lower quadrant Qualified Code(s): R10.32 - Left lower quadrant pain Code(s): R10.9 - UNSPECIFIED ABDOMINAL PAIN
[2018-08-04] MEDS: ROCEPHIN 1 Gm-D5w 50 ml Bag** 1 G/50 ML IVPB IV SCH (09:22)
[2018-08-04] MEDS: Sodium Chloride 0.9% 1000 ML 1,000 ML IV SCH ×2 (09:24→20:08)
[2018-08-04] MEDS: SYNTHROID 100 MCG PO SCH (18:31)
[2018-08-04] MEDS: SYNTHROID 125 MCG PO SCH (18:31)
[2018-08-04] MEDS: NORCO 5/325 MG PO PRN (22:50)
[2018-08-05] MEDS: FLAGYL 500 MG IVPB 500 MG/100 ML BAG IV SCH ×5 (01:08→23:42)
[2018-08-05] MEDS: Sodium Chloride 0.9% 1000 ML 1,000 ML IV SCH ×2 (05:32→17:44)
[2018-08-05] MEDS: NORCO 5/325 MG PO PRN ×3 (05:32→23:54)
[2018-08-05 05:51] LABS: BASOPHIL % 0.2 % (0.0-0.4); Basophil (Absolute #) 0.03 (0-0.4); Eosinophil % 0.3 % (0.00-5.0); Eosinophil (Absolute #) 0.04 (0-0.5); Granulocyte Absolute (ANC) 10.82 (1.4-6.9); Granulocytes % 82.5 % (36.0-66.0); Hematocrit 41.9 % (35-47); Hemoglobin 13.3 gm/dl (12.0-16.0); Lymphocyte (Absolute #) 0.99 (1.0-4.6); Lymphocytes % 7.5 % (24.0-44.0); Mean Cell Volume 77.6 fl (78-100); Mean Corpuscular Hemoglobin 24.6 pg (26-32); Mean Corpuscular Hgb Concent. 31.7 g/dl (32-36); Mean Platelet Volume 11.2 fl (6-9.5); Monocyte (Absolute #) 1.24 (0.0-1.3); Monocytes % 9.5 % (0.0-12.0); Platelet Count 246 K/mm3 (150-450); Red Cell Distribution Width 16.1 % (11.5-14.0); White Blood Count 13.1 K/mm3 (4.0-10.5)
[2018-08-05 06:04] LABS: ALBUMIN 2.9 g/dL (3.5-5.0); ALKALINE PHOSPHATASE 125 U/L (38-126); ANION GAP 9.3 MEQ/L (5-15); BLOOD UREA NITROGEN 10 mg/dL (7-17); CHLORIDE 105 mmol/L (98-107); Calcium 8.3 mg/dL (8.4-10.2); Carbon Dioxide 25 mmol/L (22-30); Creatinine 1 0.64 mg/dL (0.52-1.04); Glucose 127 mg/dL (74-106); Potassium 3.5 mmol/L (3.5-5.1); SGOT/AST 46 U/L (14-36); SGPT/ALT 44 U/L (0-35); SODIUM 135 mmol/L (137-145)
--- NOTE | 2018-08-05 08:10 | PCM.NOTE ---
Date and Time: 08/05/18808 Subjective Assessment: patient reports improvement, still having loose stools but less frequent. abdominal pain is improving. tolerating clears Objective Exam General Appearance: no apparent distress, alert, obese Neurologic Exam: alert, oriented x 3 Skin Exam: normal color, warm, dry Respiratory Exam: normal breath sounds, lungs clear, No respiratory distress Cardiovascular Exam: regular rate/rhythm, normal heart sounds Gastrointestinal/Abdomen Exam: tenderness (mild in ruq and llq, improved since admission), No guarding, No rebound Extremity Exam: normal inspection, normal range of motion OBJECTIVE DATA Vital Signs: Vital Signs - 24 hr Temp Pulse Resp BP Pulse Ox 08/05/18 07:24 98.2 F 77 18 121/76 95 08/05/18 04:00 98.4 F 81 16 139/79 95 08/04/18 23:35 98.3 F 83 18 131/74 96 08/04/18 19:40 98.5 F 84 18 129/75 96 08/04/18 16:00 98.4 F 84 18 116/74 95 08/04/18 12:00 98.6 F 82 18 121/67 95 Pain Assessment - Last Documented Pain Intensity 7 Pain Scale Used 0-10 Pain Scale Intake and Output: Intake & Output 08/02/18 08/03/18 08/04/18 08/05/18 11:59 11:59 11:59 11:59 Intake Total 826 3390 Balance 826 3390 Weight 113.7 kg 114.6 kg Lab Results: Lab Results-Last 24 Hours 08/05/18 08/05/18 Range/Units 05:15 05:15 WBC 13.1 H (4.0-10.5) K/mm3 RBC 5.40 (4.1-5.4) M/mm3 Hgb 13.3 (12.0-16.0) gm/dl Hct 41.9 (35-47) % MCV 77.6 L (78-100) fl MCH 24.6 L (26-32) pg MCHC 31.7 L (32-36) g/dl RDW 16.1 H (11.5-14.0) % Plt Count 246 (150-450) K/mm3 MPV 11.2 H (6-9.5) fl Gran % 82.5 H (36.0-66.0) % Eos # (Auto) 0.04 (0-0.5) Absolute Lymphs (auto) 0.99 L (1.0-4.6) Absolute Monos (auto) 1.24 (0.0-1.3) Lymphocytes % 7.5 L (24.0-44.0) % Monocytes % 9.5 (0.0-12.0) % Eosinophils % 0.3 (0.00-5.0) % Basophils % 0.2 (0.0-0.4) % Absolute Granulocytes 10.82 H (1.4-6.9) Basophils # 0.03 (0-0.4) Sodium 135 L (137-145) mmol/L Potassium 3.5 (3.5-5.1) mmol/L Chloride 105 (98-107) mmol/L Carbon Dioxide 25 (22-30) mmol/L Anion Gap 9.3 (5-15) MEQ/L BUN 10 (7-17) mg/dL Creatinine 0.64 (0.52-1.04) mg/dL Estimated GFR > 60.0 ML/MIN Glucose 127 H (74-106) mg/dL Calcium 8.3 L (8.4-10.2) mg/dL Total Bilirubin 0.30 (0.2-1.3) mg/dL AST 46 H (14-36) U/L ALT 44 H (0-35) U/L Alkaline Phosphatase 125 (38-126) U/L Serum Total Protein 6.0 L (6.3-8.2) g/dL Albumin 2.9 L (3.5-5.0) g/dL Radiology Exams: Radiology Procedures Category Date Time Status ABDOMEN AND PELVIS W/0 CONTRAS [CT] Stat Exams 08/03/18 18:10 Completed CHEST 1 VIEW (PORTABLE) Stat Exams 08/03/18 17:00 Completed Multi-Disciplinary Progress Notes: Multi-Disciplinary Progress Notes 08/05/18 04:57 Respiratory Note by Jaylan Temple CANCE[employer]ED [employer] ADMINSTRATOR ORDER BECAUSE WHEN I WENT TO CHECK PT SHE WAS NO LONGER ON [employer] ADMINSTRATOR AND WAS NOT ON O2. Initialized on 08/05/18 04:57 - END OF NOTE 08/04/18 10:26 Case Management Note by Sonali Diaz DISCHARGE PLAN REVIEWED. PATIENT NORMALLY INDEPENDENT OF ALL ADL'S, WORKS AND DRIVES. SHE HAS ACCESS TO MEDICAL AND IS HER OWN TRANSPORTATION. SHE LIVES ALONE. PLAN TO RETURN HOME TO PRE EPISODIC LEVEL OF FUNCTION. WILL CONTINUE TO MONITOR FOR ALL D/C NEEDS. PRIMARY NURSE TO CONTACT DISCHARGE PLANNING WITH ANY NEEDS. Initialized on 08/04/18 10:26 - END OF NOTE Assessment/Plan (1) Colitis Current Visit: Yes Status: Acute Assessment & Plan: continue rocephin and flagyl at this time, clinically improving. Code(s): K52.9 - NONINFECTIVE GASTROENTERITIS AND COLITIS, UNSPECIFIED (2) Abdominal pain Current Visit: Yes Status: Acute Qualifiers: Abdominal location: left lower quadrant Qualified Code(s): R10.32 - Left lower quadrant pain Code(s): R10.9 - UNSPECIFIED ABDOMINAL PAIN
[2018-08-05] MEDS: SYNTHROID 100 MCG PO SCH (10:20)
[2018-08-05] MEDS: ROCEPHIN 1 Gm-D5w 50 ml Bag** 1 G/50 ML IVPB IV SCH (10:20)
[2018-08-05] MEDS: SYNTHROID 125 MCG PO SCH (10:21)
[2018-08-05] MEDS: Zestril 10 MG PO SCH (10:21)
[2018-08-05] MEDS: ANTIVERT 25 MG PO PRN ×2 (13:09→19:13)
[2018-08-06] MEDS: FLAGYL 500 MG IVPB 500 MG/100 ML BAG IV SCH ×4 (05:01→23:36)
[2018-08-06] MEDS: Sodium Chloride 0.9% 1000 ML 1,000 ML IV SCH ×2 (05:01→18:01)
[2018-08-06 05:46] LABS: BASOPHIL % 0.2 % (0.0-0.4); Basophil (Absolute #) 0.02 (0-0.4); Eosinophil % 1.4 % (0.00-5.0); Eosinophil (Absolute #) 0.13 (0-0.5); Granulocyte Absolute (ANC) 5.83 (1.4-6.9); Granulocytes % 62.9 % (36.0-66.0); Hematocrit 39.3 % (35-47); Hemoglobin 12.3 gm/dl (12.0-16.0); Lymphocyte (Absolute #) 1.93 (1.0-4.6); Lymphocytes % 20.8 % (24.0-44.0); Mean Cell Volume 78.8 fl (78-100); Mean Corpuscular Hemoglobin 24.6 pg (26-32); Mean Corpuscular Hgb Concent. 31.3 g/dl (32-36); Mean Platelet Volume 11.4 fl (6-9.5); Monocyte (Absolute #) 1.36 (0.0-1.3); Monocytes % 14.7 % (0.0-12.0); Platelet Count 276 K/mm3 (150-450); Red Blood Count 4.99 M/mm3 (4.1-5.4); Red Cell Distribution Width 16.2 % (11.5-14.0); White Blood Count 9.3 K/mm3 (4.0-10.5)
[2018-08-06 05:58] LABS: ALBUMIN 2.6 g/dL (3.5-5.0); ALKALINE PHOSPHATASE 121 U/L (38-126); BLOOD UREA NITROGEN 9 mg/dL (7-17); CHLORIDE 105 mmol/L (98-107); Calcium 8.3 mg/dL (8.4-10.2); Carbon Dioxide 29 mmol/L (22-30); Creatinine 1 0.69 mg/dL (0.52-1.04); Glucose 117 mg/dL (74-106); Potassium 3.8 mmol/L (3.5-5.1); SGOT/AST 30 U/L (14-36); SGPT/ALT 39 U/L (0-35); SODIUM 137 mmol/L (137-145); Total Protein 5.4 g/dL (6.3-8.2)
--- NOTE | 2018-08-06 09:03 | PCM.NOTE ---
Date and Time: 08/06/18900 Subjective Assessment: Pt only had 2 stools overnight. Tolerating some po. OBJECTIVE DATA Vital Signs: Vital Signs - 24 hr Temp Pulse Resp BP Pulse Ox 08/06/18 07:00 97.9 F 68 18 109/74 97 08/06/18 03:00 97.9 F 67 17 109/61 97 08/05/18 23:43 97.9 F 58 L 19 144/80 97 08/05/18 21:00 97.5 F 69 17 129/81 97 08/05/18 20:00 97.5 F 69 17 129/81 97 08/05/18 16:00 97.8 F 60 18 112/67 98 08/05/18 11:39 97.8 F 64 18 136/76 96 Pain Assessment - Last Documented Pain Intensity 2 Pain Scale Used 0-10 Pain Scale Intake and Output: Intake & Output 08/03/18 08/04/18 08/05/18 08/06/18 11:59 11:59 11:59 11:59 Intake Total 826 3390 2983 Output Total 450 Balance 826 3390 2533 Weight 113.7 kg 114.6 kg 115 kg Lab Results: Lab Results-Last 24 Hours 08/06/18 08/06/18 Range/Units 05:13 05:13 WBC 9.3 (4.0-10.5) K/mm3 RBC 4.99 (4.1-5.4) M/mm3 Hgb 12.3 (12.0-16.0) gm/dl Hct 39.3 (35-47) % MCV 78.8 (78-100) fl MCH 24.6 L (26-32) pg MCHC 31.3 L (32-36) g/dl RDW 16.2 H (11.5-14.0) % Plt Count 276 (150-450) K/mm3 MPV 11.4 H (6-9.5) fl Gran % 62.9 (36.0-66.0) % Eos # (Auto) 0.13 (0-0.5) Absolute Lymphs (auto) 1.93 (1.0-4.6) Absolute Monos (auto) 1.36 H (0.0-1.3) Lymphocytes % 20.8 L (24.0-44.0) % Monocytes % 14.7 H (0.0-12.0) % Eosinophils % 1.4 (0.00-5.0) % Basophils % 0.2 (0.0-0.4) % Absolute Granulocytes 5.83 (1.4-6.9) Basophils # 0.02 (0-0.4) Sodium 137 (137-145) mmol/L Potassium 3.8 (3.5-5.1) mmol/L Chloride 105 (98-107) mmol/L Carbon Dioxide 29 (22-30) mmol/L Anion Gap 7.0 (5-15) MEQ/L BUN 9 (7-17) mg/dL Creatinine 0.69 (0.52-1.04) mg/dL Estimated GFR > 60.0 ML/MIN Glucose 117 H (74-106) mg/dL Calcium 8.3 L (8.4-10.2) mg/dL Total Bilirubin 0.20 (0.2-1.3) mg/dL AST 30 (14-36) U/L ALT 39 H (0-35) U/L Alkaline Phosphatase 121 (38-126) U/L Serum Total Protein 5.4 L (6.3-8.2) g/dL Albumin 2.6 L (3.5-5.0) g/dL Assessment/Plan (1) Colitis Current Visit: Yes Status: Acute Assessment & Plan: On rocephin day #3 (levaquin allergy) and flagyl day #4. Has tolerated some jello; feels like eating toast this morning. Code(s): K52.9 - NONINFECTIVE GASTROENTERITIS AND COLITIS, UNSPECIFIED (2) Hyperglycemia Current Visit: Yes Status: Acute Assessment & Plan: check a1c Code(s): R73.9 - HYPERGLYCEMIA, UNSPECIFIED
[2018-08-06] MEDS: ROCEPHIN 1 Gm-D5w 50 ml Bag** 1 G/50 ML IVPB IV SCH (09:13)
[2018-08-06] MEDS: SYNTHROID 100 MCG PO SCH (09:13)
[2018-08-06] MEDS: SYNTHROID 125 MCG PO SCH (09:13)
[2018-08-06] MEDS: Zestril 10 MG PO SCH (09:13)
[2018-08-06] MEDS: NORCO 5/325 MG PO PRN (22:43)
[2018-08-07] MEDS: FLAGYL 500 MG IVPB 500 MG/100 ML BAG IV SCH (05:51)
[2018-08-07] MEDS: Sodium Chloride 0.9% 1000 ML 1,000 ML IV SCH (06:34)
[2018-08-07 07:59] VITALS: BP 162/82; PULSE 77; O2SAT 97
[2018-08-07] MEDS ORDERED: BENADRYL 50 MG/ML IV ONE (08:33)
--- NOTE | 2018-08-07 08:40 | PCM.NOTE ---
Date and Time: 08/07/18834 Subjective Assessment: Pt is feeling a little better - had a BM at 10:30 pm then another at approx 8 a.m. She is still having loose stools but thinks they may be firming up. Is tolerating more po. C/o generalized soreness in her abdomen, a little worse in epigastrum. - Review of Systems Constitutional: No Fever Objective Exam General Appearance: no apparent distress, alert, obese Neurologic Exam: oriented x 3, cooperative Skin Exam: normal color, warm, dry, No rash Ears, Nose, Throat Exam: moist mucous membranes Neck Exam: normal inspection Respiratory Exam: normal breath sounds, lungs clear, No crackles/rales, No rhonchi, No wheezing Cardiovascular Exam: regular rate/rhythm, normal heart sounds, No murmur Gastrointestinal/Abdomen Exam: soft, normal bowel sounds, No tenderness, No distention, No mass, No guarding, No rebound Extremity Exam: No pedal edema, No swelling OBJECTIVE DATA Vital Signs: Vital Signs - 24 hr Temp Pulse Resp BP Pulse Ox 08/07/18 07:00 97.9 F 77 18 162/82 97 08/07/18 03:00 97.7 F 70 18 143/69 93 L 08/06/18 23:00 98 F 75 20 116/57 94 L 08/06/18 19:00 98.5 F 73 20 150/78 94 L 08/06/18 15:00 98.5 F 67 18 135/67 97 08/06/18 11:00 98.4 F 62 18 121/67 96 Pain Assessment - Last Documented Pain Intensity 0 [facility] Intake and Output: Intake & Output 08/04/18 08/05/18 08/06/18 08/07/18 11:59 11:59 11:59 11:59 Intake Total 826 3390 2983 3061 Output Total 450 600 Balance 826 3390 2533 2461 Weight 113.7 kg 114.6 kg 115 kg 115.4 kg Lab Results: Lab Results-Last 24 Hours 08/06/18 Range/Units 06:00 Hemoglobin A1c 6.21 H (4.5-6.0) % Assessment/Plan (1) Colitis Current Visit: Yes Status: Acute Assessment & Plan: Will try giving her a dose of levaquin with her flagyl today; she said her reaction to the levaquin was a rash (will pretreat with benadryl) If doing better later today,may be able to d/c to home. Code(s): K52.9 - NONINFECTIVE GASTROENTERITIS AND COLITIS, UNSPECIFIED (2) Hyperglycemia Current Visit: Yes Status: Acute Assessment & Plan: a1c 6.21. Code(s): R73.9 - HYPERGLYCEMIA, UNSPECIFIED (3) Abdominal pain Current Visit: Yes Status: Resolved Qualifiers: Abdominal location: generalized Qualified Code(s): R10.84 - Generalized abdominal pain Assessment & Plan: add PPI and probiotic. Code(s): R10.9 - UNSPECIFIED ABDOMINAL PAIN
--- NOTE | 2018-08-07 08:58 | PCM.DS ---
Discharge Summary Date of Admission: 08/03/18 20:31 Admitting Physician: ERIKA CHEN Primary Care Provider: ERIKA CHEN Allergies Allergies levofloxacin [From Levaquin] Allergy (Mild, Verified 06/04/12 08:13) rash, itching morphine Allergy (Verified 06/04/12 09:55) Hospital Summary - Hospital Course Hospital Course: Pt is 53 yo female pt of mine from [facility] who was admitted through ER with abd pain and diarrhea, found to have colitis. She was started on IV rocephin and flagyl (has levaquin allergy). Has gradually been having less stools; had one last night and one this morning, more formed. Will send her home on augmentin and flagyl. - Vitals & Intake/Output Vital Signs: Vital Signs Temperature 97.9 F 08/07/18 07:00 Pulse Rate 77 08/07/18 07:00 Respiratory Rate 18 08/07/18 07:00 Blood Pressure 162/82 08/07/18 07:00 O2 Sat by Pulse Oximetry 97 08/07/18 07:00 Intake & Output: Intake & Output 08/04/18 08/05/18 08/06/18 08/07/18 11:59 11:59 11:59 11:59 Intake Total 826 3390 2983 3061 Output Total 450 600 Balance 826 3390 2533 2461 Weight 113.7 kg 114.6 kg 115 kg 115.4 kg - Lab Result Diagrams: 08/06/18 05:13 08/06/18 05:13 Lab Results-Last 24 Hrs: Lab Results-Last 24 Hours 08/06/18 Range/Units 06:00 Hemoglobin A1c 6.21 H (4.5-6.0) % Micro Results-Entire Visit: Microbiology 08/04/18 01:28 Stool Culture - Preliminary Stool 08/03/18 17:20 Blood Culture - Preliminary Blood NO GROWTH TO DATE 08/03/18 17:10 Blood Culture - Preliminary Blood NO GROWTH TO DATE Discharge Exam General Appearance: no apparent distress, alert, obese Neurologic Exam: oriented x 3, cooperative Skin Exam: normal color, warm, dry, No rash Respiratory Exam: normal breath sounds, lungs clear, No crackles/rales, No rhonchi, No wheezing Cardiovascular Exam: regular rate/rhythm, normal heart sounds, No murmur Gastrointestinal/Abdomen Exam: soft, normal bowel sounds, No tenderness, No distention, No mass, No guarding, No rebound Extremity Exam: normal inspection Back Exam: normal inspection, No rash Final Diagnosis/Problem List - Final Discharge Diagnosis/Problem (1) Colitis Current Visit: Yes Status: Acute Assessment & Plan: Improved, will d/c to home. Code(s): K52.9 - NONINFECTIVE GASTROENTERITIS AND COLITIS, UNSPECIFIED (2) Hyperglycemia Current Visit: Yes Status: Acute Assessment & Plan: a1c mildly elevated. will continue checking at regular intervals. Code(s): R73.9 - HYPERGLYCEMIA, UNSPECIFIED (3) Abdominal pain Current Visit: Yes Status: Resolved Assessment & Plan: home on PPI for several weeks. Code(s): R10.9 - UNSPECIFIED ABDOMINAL PAIN - Discharge Disposition: Home, Self-Care Condition: Stable Prescriptions: New Amoxicillin/Potassium Clav [Augmentin 875-125 Tablet] 875 mg PO BID #18 tablet Metronidazole 500 mg [Flagyl 500 MG] 500 mg PO QID #36 tablet Pantoprazole Sodium [Protonix] 40 mg PO DAILY #14 tablet. Ondansetron ODT 4 MG [Zofran Odt 4 mg] 4 mg PO Q6H PRN PRN #10 tab.rapdis PRN Reason: Nausea Continue Furosemide 40 mg [Lasix 40 MG] 40 mg PO DAILY Lisinopril 10 mg [Zestril 10 MG] 10 mg PO DAILY Levothyroxine Sodium [Synthroid] 200 mcg PO DAILY Levothyroxine Sodium 25 Mcg [Synthroid 25 Mcg] 25 mcg PO DAILY Follow up with: ERIKA CHEN [Primary Care Provider] - 1 Week
[2018-08-07] MEDS: Zestril 10 MG PO SCH (09:38)
[2018-08-07] MEDS: SYNTHROID 100 MCG PO SCH (09:38)
[2018-08-07] MEDS: SYNTHROID 125 MCG PO SCH (09:38)
[2018-08-07] MEDS ORDERED: Protonix 40MG Tablet PO SCH (10:00)
[2018-08-07] MEDS ORDERED: Levofloxacin 500MG/100ML D5W 500 MG/100 ML BAG IV SCH (10:00)
== END 2018-08-07 10:37 | disposition home or self-care (01) ==
LOC: ED 15:56 → MED SURG 20:31
PROVIDERS: ADMIT Family Medicine; ATTEND Family Medicine
DX: K52.9 Noninfective gastroenteritis and colitis, unspecified (principal); R73.9 Hyperglycemia, unspecified; R10.9 Unspecified abdominal pain; Z79.899 Other long term (current) drug therapy
CPT/HCPCS: 36000; 36415; 71045; 74176; 80053; 81001; 82150; 83036; 83690; 84439; 84443; 85025; 86308; 87040; 87045; 87046; 87335; 87651; 96360; 99285; G0378; J0696; J2405; A9270-GY

== ENCOUNTER 2018-08-13 09:04 | Inpatient (IN) | payer OTHER ==
[2018-08-13] MEDS ORDERED: Lactated Ringers 1,000 ML IV SCH (17:30)
[2018-08-13] MEDS ORDERED: Sodium Chloride 0.9% 1000 ML 2,000 ML ONE (17:39)
[2018-08-13 18:05] LABS: BASOPHIL % 0.1 % (0.0-0.4); Basophil (Absolute #) 0.03 (0-0.4); Eosinophil % 0.1 % (0.00-5.0); Eosinophil (Absolute #) 0.04 (0-0.5); Granulocyte Absolute (ANC) 24.53 (1.4-6.9); Granulocytes % 87.1 % (36.0-66.0); Hematocrit 42.9 % (35-47); Lymphocyte (Absolute #) 1.39 (1.0-4.6); Lymphocytes % 4.9 % (24.0-44.0); Mean Cell Volume 75.8 fl (78-100); Mean Corpuscular Hemoglobin 24.7 pg (26-32); Mean Corpuscular Hgb Concent. 32.6 g/dl (32-36); Mean Platelet Volume 10.2 fl (6-9.5); Monocyte (Absolute #) 2.19 (0.0-1.3); Monocytes % 7.8 % (0.0-12.0); Platelet Count 354 K/mm3 (150-450); Red Blood Count 5.66 M/mm3 (4.1-5.4); Red Cell Distribution Width 16.4 % (11.5-14.0)
[2018-08-13 18:15] LABS: ALBUMIN 3.6 g/dL (3.5-5.0); ALKALINE PHOSPHATASE 109 U/L (38-126); ANION GAP 13.1 MEQ/L (5-15); BLOOD UREA NITROGEN 8 mg/dL (7-17); CHLORIDE 102 mmol/L (98-107); Calcium 8.9 mg/dL (8.4-10.2); Carbon Dioxide 25 mmol/L (22-30); Creatinine 1 0.98 mg/dL (0.52-1.04); Glucose 158 mg/dL (74-106); Potassium 3.2 mmol/L (3.5-5.1); SGOT/AST 13 U/L (14-36); SGPT/ALT 23 U/L (0-35); SODIUM 137 mmol/L (137-145)
[2018-08-13] MEDS ORDERED: Lactated Ringers 2,000 ML IV ONE (18:15)
[2018-08-13 18:17] LABS: White Blood Count 28.2 K/mm3 (4.0-10.5)
[2018-08-13] MEDS: Lactated Ringers 1,000 ML IV SCH (18:18)
[2018-08-13] MEDS: ROCEPHIN 2 Gm-D5w 50ML BAG** 2 G/50 ML IVPB IV SCH (18:22)
[2018-08-13] MEDS ORDERED: Phenergan 25 MG INJ IV PRN (18:55)
[2018-08-13] MEDS ORDERED: MORPHINE SULFATE 4 MG INJ IV PRN (18:57)
[2018-08-13 19:01] LABS: Appearance SLIGHTLY CLOUDY (CLEAR); Bacteria FEW /HPF (NEGATIVE); Bilirubin NEGATIVE (NEGATIVE); Blood NEGATIVE Ery/ul (0-5); Epithelial Cells MANY /HPF (FEW); Glucose NEGATIVE (NEGATIVE); Ketones NEGATIVE (NEGATIVE); Leukocyte Esterase NEGATIVE (NEGATIVE); Mucus SLIGHT /HPF (NEGATIVE); Nitrite NEGATIVE (NEGATIVE); Protein,Urine Dip 30 (Negative); RBC 0-2 /HPF (0-2); Specific Gravity 1.016 (1.005-1.025); Urobilinogen NEGATIVE mg/dL (0-1)
--- NOTE | 2018-08-13 19:23 | PCM.HP ---
History of Present Illness - Chief Complaint Chief Complaint: salmenella diarrhea History of Present Illness: is a 53 year old female pt of mine from [facility] with obesity and diabetes who was admitted wiht salmonella colitis. She had been admitted to the hospital last week with colitis per CT scan, placed on IV rocephin and flagyl (d/t levaquin allergy) and improved over several days. She was still having some stools, although decreased amount, and stools were just soft, when she was sent home on po augmentin. She continued to have 3-4 stools/ d and was having fatigue. Yesterday she had an increased number of stools, and last night she had chills. When she tried to eat (has not been eating well), she started having abd pain in epigastrum radiating to mid abd, 3-12/08. Today she slept all day and had 9-10 stools, soft. was directly admitted by me and found to have WBC count 28,000. Apparently I gave her three medicines total to take at home - she took the antibiotic, but "one causes lupus and lupus runs in my family so I didn't take it, and one causes cancer and my dad just of cancer in March so I didn' t take it." She had been taking po bactrim at home. - Review of Systems Constitutional: Fever, Chills, Fatigue Abdominal/Gastrointestinal: Abdominal Pain, Appetite Changes (decreased) Musculoskeletal: Joint Pain (L shoulder/axilla pain yesterday rad to L arm, neck , and back. resolved with naproxen.) Neurological: No Dizziness Psychological: No Depression, No Suicidal Ideations All Other Systems: Reviewed and Negative Medications & Allergies Home Medications: Home Medication List Furosemide 40 mg [Lasix 40 MG] 40 mg PO DAILY 08/08/12 [History Confirmed 08/13/18] Levothyroxine Sodium [Synthroid] 200 mcg PO DAILY 08/09/12 [History Confirmed ] Lisinopril 10 mg [Zestril 10 MG] 10 mg PO DAILY 08/09/12 [History Confirmed 08/13/18] Levothyroxine Sodium 25 Mcg [Synthroid 25 Mcg] 25 mcg PO DAILY 08/03/18 [ History Confirmed 08/13/18] Meclizine HCl 12.5 mg PO TID PRN 08/13/18 [History Confirmed 08/13/18] Sulfamethoxazole/Trimethoprim [Bactrim Ds Tablet] 1 each PO Q12H 08/13/18 [ History Confirmed 08/13/18] Allergies/Adverse Reactions: Allergies Allergy/AdvReac Type Severity Reaction Status Date / Time levofloxacin [From Levaquin] Allergy Mild Verified 06/04/12 08:13 morphine Allergy Verified 06/04/12 09:55 - Past Medical History Past Medical History: Yes Neurological History: No Pertinent History ENT History: No Pertinent History Cardiac History: Hypertension Respiratory History: No Pertinent History Endocrine Medical History: No Pertinent History Musculoskelatal History: No Pertinent History GI Medical History: No Pertinent History, Colitis History: No Pertinent History Pyscho-Social History: No Pertinent History Reproductive Disorders: Fibroids - Female History Hx Last Menstrual Period: hysterectomy Are you now?: No - Past Surgical History Past Surgical History: Yes Neuro Surgical History: No Pertinent History Cardiac History: No Pertinent History Respiratory Surgery: No Pertinent History GI Surgical History: Appendectomy, Cholecystectomy Genitourinary Surgical Hx: No Pertinent History Musculskeletal Surgical Hx: No Pertinent History, Orthopedic Surgery Female Surgical History: Hysterectomy Other Surgical History: FOOT SURGERY - Social History Smoking Status: Former smoker How long have you smoked: 4yrs Exposure to second hand smoke: No Alcohol: None Drug Use: none - Physical Exam Vital Signs: Vital Signs - 24 hr Temp Pulse Resp BP Pulse Ox 08/13/18 17:58 98.6 F 116 H 20 129/81 92 L 08/13/18 17:25 98.6 F 116 H 20 129/81 93 L General Appearance: no apparent distress, alert, obese Neurologic Exam: oriented x 3, cooperative Eye Exam: eyes nml inspection Ears, Nose, Throat Exam: moist mucous membranes Neck Exam: normal inspection, non-tender, No lymphadenopathy Respiratory Exam: normal breath sounds, lungs clear, No crackles/rales, No rhonchi, No wheezing Cardiovascular Exam: regular rate/rhythm, normal heart sounds, No murmur Gastrointestinal/Abdomen Exam: soft, tenderness (epigastrum), guarding ( epigastrum), No normal bowel sounds (hypoactive but present), No distention, No mass, No rebound Back Exam: normal inspection, No CVA tenderness, No rash Extremity Exam: normal inspection, No pedal edema, No swelling Skin Exam: normal color, warm, dry, No rash Results - Labs Lab/Micro Results: Lab Results-Last 24 Hours 08/13/18 08/13/18 08/13/18 Range/Units 17:50 17:50 18:25 WBC 28.2 H* (4.0-10.5) K/mm3 RBC 5.66 H (4.1-5.4) M/mm3 Hgb 14.0 (12.0-16.0) gm/dl Hct 42.9 (35-47) % MCV 75.8 L (78-100) fl MCH 24.7 L (26-32) pg MCHC 32.6 (32-36) g/dl RDW 16.4 H (11.5-14.0) % Plt Count 354 (150-450) K/mm3 MPV 10.2 H (6-9.5) fl Gran % 87.1 H (36.0-66.0) % Eos # (Auto) 0.04 (0-0.5) Absolute Lymphs (auto) 1.39 (1.0-4.6) Absolute Monos (auto) 2.19 H (0.0-1.3) Lymphocytes % 4.9 L (24.0-44.0) % Monocytes % 7.8 (0.0-12.0) % Eosinophils % 0.1 (0.00-5.0) % Basophils % 0.1 (0.0-0.4) % Absolute Granulocytes 24.53 H (1.4-6.9) Basophils # 0.03 (0-0.4) Sodium 137 (137-145) mmol/L Potassium 3.2 L (3.5-5.1) mmol/L Chloride 102 (98-107) mmol/L Carbon Dioxide 25 (22-30) mmol/L Anion Gap 13.1 (5-15) MEQ/L BUN 8 (7-17) mg/dL Creatinine 0.98 (0.52-1.04) mg/dL Estimated GFR > 60.0 ML/MIN Glucose 158 H (74-106) mg/dL Calcium 8.9 (8.4-10.2) mg/dL Total Bilirubin 0.90 (0.2-1.3) mg/dL AST 13 L (14-36) U/L ALT 23 (0-35) U/L Alkaline Phosphatase 109 (38-126) U/L Serum Total Protein 7.0 (6.3-8.2) g/dL Albumin 3.6 (3.5-5.0) g/dL Urine Color YELLOW (YELLOW) Urine Appearance SLIGHTLY CLOUDY (CLEAR) Urine pH 6.0 (5-6) Ur Specific [place] 1.016 (1.005-1.025) Urine Protein 30 (Negative) Urine Ketones NEGATIVE (NEGATIVE) Urine Blood NEGATIVE (0-5) Lamont/ul Urine Nitrite NEGATIVE (NEGATIVE) Urine Bilirubin NEGATIVE (NEGATIVE) Urine Urobilinogen NEGATIVE (0-1) mg/dL Ur Leukocyte Esterase NEGATIVE (NEGATIVE) Urine WBC (Auto) 6-10 (0-5) /HPF Urine RBC (Auto) 0-2 (0-2) /HPF U Epithel Cells (Auto) MANY (FEW) /HPF Urine Bacteria (Auto) FEW (NEGATIVE) /HPF Urine Mucus (Auto) SLIGHT (NEGATIVE) /HPF Urine Culture Reflexed YES (NO) Urine Glucose NEGATIVE (NEGATIVE) mg/dL - Radiology Impressions Radiology Exams & Impressions: Radiology Procedures Category Date Time Status ABDOMEN 2 VIEW Routine Exams 08/13/18 17:45 Taken Assessment/Plan (1) Salmonella enteritis Current Visit: Yes Status: Acute Assessment & Plan: she is on rocephin 2g IV q24h, day #1. Start probiotic. Check lactate. Continue IVF. Recheck WBC in a.m. Not sure which medications she was given upon discharge that she was too afraid to take. Code(s): A02.0 - SALMONELLA ENTERITIS (2) Abdominal pain Current Visit: No Status: Resolved Qualifiers: Abdominal location: epigastric Qualified Code(s): R10.13 - Epigastric pain Assessment & Plan: If not decreased tomorrow, would recheck CT abdomen/pelvis. Code(s): R10.9 - UNSPECIFIED ABDOMINAL PAIN (3) Diabetes mellitus Current Visit: Yes Status: Acute Qualifiers: Diabetes mellitus type: type 2 Diabetes mellitus fci insulin use: without predatory animal exterminator use Diabetes mellitus complication status: without complication Qualified Code(s): E11.9 - Type 2 diabetes mellitus without complications Code(s): E11.9 - TYPE 2 DIABETES MELLITUS WITHOUT COMPLICATIONS (4) Hypothyroid Current Visit: Yes Status: Chronic Qualifiers: Hypothyroidism type: acquired Qualified Code(s): E03.9 - Hypothyroidism, unspecified Code(s): E03.9 - HYPOTHYROIDISM, UNSPECIFIED
[2018-08-13] MEDS ORDERED: ANTIVERT 25 MG PO PRN (20:30)
[2018-08-13] MEDS: Klor Con 10 MEQ PO SCH (21:49)
[2018-08-13] MEDS: NORCO 5/325 MG PO PRN (22:05)
[2018-08-14 00:56] LABS: Lymphocytes 6 % (24-44); Monocyte 5 % (0.0-12.0); Neutrophils 89 % (36.0-66.0); Platelet Estimate NORMAL (NORMAL); Total Cells Counted 100
[2018-08-14 00:57] LABS: ANISOCYTOSIS 2+; Poikilocytosis 2+
[2018-08-14] MEDS: Lactated Ringers 1,000 ML IV SCH ×2 (04:59→16:07)
[2018-08-14 05:50] LABS: Hematocrit 39.5 % (35-47); Hemoglobin 12.5 gm/dl (12.0-16.0); Mean Cell Volume 76.6 fl (78-100); Mean Corpuscular Hemoglobin 24.2 pg (26-32); Mean Corpuscular Hgb Concent. 31.6 g/dl (32-36); Mean Platelet Volume 9.9 fl (6-9.5); Platelet Count 320 K/mm3 (150-450); Red Blood Count 5.16 M/mm3 (4.1-5.4); Red Cell Distribution Width 16.3 % (11.5-14.0)
[2018-08-14 06:09] LABS: ANION GAP 9.8 MEQ/L (5-15); BLOOD UREA NITROGEN 8 mg/dL (7-17); CHLORIDE 103 mmol/L (98-107); Calcium 8.4 mg/dL (8.4-10.2); Carbon Dioxide 27 mmol/L (22-30); Creatinine 1 0.83 mg/dL (0.52-1.04); Glucose 124 mg/dL (74-106); MAGNESIUM 1.9 mg/dL (1.6-2.3); Potassium 3.5 mmol/L (3.5-5.1); SODIUM 136 mmol/L (137-145)
[2018-08-14 06:37] LABS: White Blood Count 29.1 K/mm3 (4.0-10.5)
[2018-08-14] MEDS: FLAGYL 500 MG IVPB 500 MG/100 ML BAG IV SCH ×4 (07:35→23:47)
--- NOTE | 2018-08-14 08:34 | XRAY ---
Indication: Diarrhea. Salmonella. Comparison: None 2 views of the abdomen nonacute and nonobstructed with cholecystectomy clips. No focal bowel dilatation or free air. Solid organs unremarkable. Osseous structures intact with mild/moderate multilevel degenerative spondylosis. Lung bases are clear. Impression: Negative abdomen.
--- NOTE | 2018-08-14 09:09 | PCM.NOTE ---
Date and Time: 08/14/18 09 Subjective Assessment: She woke twice to have stools and otherwise slept. her stools are now loose, when before they were just soft. Would like toast or mashed potatoes. Her WBC were up this morning and flagyl was added IV. Starting to get a cold sore. Still having some epigastric and periumbilical cramping. - Review of Systems Constitutional: No Fever Abdominal/Gastrointestinal: Abdominal Pain, Diarrhea Objective Exam General Appearance: no apparent distress, alert, obese Neurologic Exam: oriented x 3, cooperative Skin Exam: normal color, warm, dry, No rash Eye Exam: eyes nml inspection Ears, Nose, Throat Exam: moist mucous membranes Respiratory Exam: normal breath sounds, lungs clear, No crackles/rales, No rhonchi, No wheezing Cardiovascular Exam: regular rate/rhythm, normal heart sounds, No murmur Gastrointestinal/Abdomen Exam: soft, normal bowel sounds, tenderness (epigastrum ), No distention, No mass, No guarding, No rebound Extremity Exam: normal inspection, No pedal edema, No swelling Back Exam: normal inspection, No rash OBJECTIVE DATA Vital Signs: Vital Signs - 24 hr Temp Pulse Resp BP Pulse Ox 08/14/18 06:29 98.9 F 93 H 18 124/78 95 08/14/18 04:00 98.9 F 102 H 20 144/81 92 L 08/13/18 23:41 99.1 F 97 H 20 136/81 93 L 08/13/18 19:55 99.2 F 96 H 20 139/96 93 L 08/13/18 17:58 98.6 F 116 H 20 129/81 92 L 08/13/18 17:25 98.6 F 116 H 20 129/81 93 L Pain Assessment - Last Documented Pain Intensity 3 Pain Scale Used 0-10 Pain Scale Intake and Output: Intake & Output 08/11/18 08/12/18 08/13/18 08/14/18 11:59 11:59 11:59 11:59 Intake Total 480 Output Total 600 Balance -120 Weight 112.5 kg Lab Results: Lab Results-Last 24 Hours 08/13/18 08/13/18 08/13/18 Range/Units 17:50 17:50 18:00 WBC 28.2 H* (4.0-10.5) K/mm3 RBC 5.66 H (4.1-5.4) M/mm3 Hgb 14.0 (12.0-16.0) gm/dl Hct 42.9 (35-47) % MCV 75.8 L (78-100) fl MCH 24.7 L (26-32) pg MCHC 32.6 (32-36) g/dl RDW 16.4 H (11.5-14.0) % Plt Count 354 (150-450) K/mm3 MPV 10.2 H (6-9.5) fl Gran % 87.1 H (36.0-66.0) % Eos # (Auto) 0.04 (0-0.5) Absolute Lymphs (auto) 1.39 (1.0-4.6) Absolute Monos (auto) 2.19 H (0.0-1.3) Lymphocytes % 4.9 L (24.0-44.0) % Monocytes % 7.8 (0.0-12.0) % Eosinophils % 0.1 (0.00-5.0) % Basophils % 0.1 (0.0-0.4) % Absolute Granulocytes 24.53 H (1.4-6.9) Segmented Neutrophils 89 H (36.0-66.0) % Lymphocytes (Manual) 6 L (24-44) % Monocytes (Manual) 5 (0.0-12.0) % Basophils # 0.03 (0-0.4) Platelet Estimate NORMAL (NORMAL) RBC Morphology ABNORMAL Poikilocytosis 2+ Anisocytosis 2+ Smear Path Review Pending Sodium 137 (137-145) mmol/L Potassium 3.2 L (3.5-5.1) mmol/L Chloride 102 (98-107) mmol/L Carbon Dioxide 25 (22-30) mmol/L Anion Gap 13.1 (5-15) MEQ/L BUN 8 (7-17) mg/dL Creatinine 0.98 (0.52-1.04) mg/dL Estimated GFR > 60.0 ML/MIN Glucose 158 H (74-106) mg/dL Lactic Acid (0.4-2.0) Calcium 8.9 (8.4-10.2) mg/dL Magnesium (1.6-2.3) mg/dL Total Bilirubin 0.90 (0.2-1.3) mg/dL AST 13 L (14-36) U/L ALT 23 (0-35) U/L Alkaline Phosphatase 109 (38-126) U/L Troponin I < 0.012 (0.000-0.034) ng/mL Serum Total Protein 7.0 (6.3-8.2) g/dL Albumin 3.6 (3.5-5.0) g/dL Urine Color (YELLOW) Urine Appearance (CLEAR) Urine pH (5-6) Ur Specific [place] (1.005-1.025) Urine Protein (Negative) Urine Ketones (NEGATIVE) Urine Blood (0-5) Lamont/ul Urine Nitrite (NEGATIVE) Urine Bilirubin (NEGATIVE) Urine Urobilinogen (0-1) mg/dL Ur Leukocyte Esterase (NEGATIVE) Urine WBC (Auto) (0-5) /HPF Urine RBC (Auto) (0-2) /HPF U Epithel Cells (Auto) (FEW) /HPF Urine Bacteria (Auto) (NEGATIVE) /HPF Urine Mucus (Auto) (NEGATIVE) /HPF Urine Culture Reflexed (NO) Urine Glucose (NEGATIVE) mg/dL 08/13/18 08/13/18 08/14/18 Range/Units 18:25 22:02 05:37 WBC 29.1 H* (4.0-10.5) K/mm3 RBC 5.16 (4.1-5.4) M/mm3 Hgb 12.5 (12.0-16.0) gm/dl Hct 39.5 (35-47) % MCV 76.6 L (78-100) fl MCH 24.2 L (26-32) pg MCHC 31.6 L (32-36) g/dl RDW 16.3 H (11.5-14.0) % Plt Count 320 (150-450) K/mm3 MPV 9.9 H (6-9.5) fl Gran % (36.0-66.0) % Eos # (Auto) (0-0.5) Absolute Lymphs (auto) (1.0-4.6) Absolute Monos (auto) (0.0-1.3) Lymphocytes % (24.0-44.0) % Monocytes % (0.0-12.0) % Eosinophils % (0.00-5.0) % Basophils % (0.0-0.4) % Absolute Granulocytes (1.4-6.9) Segmented Neutrophils (36.0-66.0) % Lymphocytes (Manual) (24-44) % Monocytes (Manual) (0.0-12.0) % Basophils # (0-0.4) Platelet Estimate (NORMAL) RBC Morphology Poikilocytosis Anisocytosis Smear Path Review Sodium (137-145) mmol/L Potassium (3.5-5.1) mmol/L Chloride (98-107) mmol/L Carbon Dioxide (22-30) mmol/L Anion Gap (5-15) MEQ/L BUN (7-17) mg/dL Creatinine (0.52-1.04) mg/dL Estimated GFR ML/MIN Glucose (74-106) mg/dL Lactic Acid 0.8 (0.4-2.0) Calcium (8.4-10.2) mg/dL Magnesium (1.6-2.3) mg/dL Total Bilirubin (0.2-1.3) mg/dL AST (14-36) U/L ALT (0-35) U/L Alkaline Phosphatase (38-126) U/L Troponin I (0.000-0.034) ng/mL Serum Total Protein (6.3-8.2) g/dL Albumin (3.5-5.0) g/dL Urine Color YELLOW (YELLOW) Urine Appearance SLIGHTLY CLOUDY (CLEAR) Urine pH 6.0 (5-6) Ur Specific [place] 1.016 (1.005-1.025) Urine Protein 30 (Negative) Urine Ketones NEGATIVE (NEGATIVE) Urine Blood NEGATIVE (0-5) Lamont/ul Urine Nitrite NEGATIVE (NEGATIVE) Urine Bilirubin NEGATIVE (NEGATIVE) Urine Urobilinogen NEGATIVE (0-1) mg/dL Ur Leukocyte Esterase NEGATIVE (NEGATIVE) Urine WBC (Auto) 6-10 (0-5) /HPF Urine RBC (Auto) 0-2 (0-2) /HPF U Epithel Cells (Auto) MANY (FEW) /HPF Urine Bacteria (Auto) FEW (NEGATIVE) /HPF Urine Mucus (Auto) SLIGHT (NEGATIVE) /HPF Urine Culture Reflexed YES (NO) Urine Glucose NEGATIVE (NEGATIVE) mg/dL 08/14/18 Range/Units 05:37 WBC (4.0-10.5) K/mm3 RBC (4.1-5.4) M/mm3 Hgb (12.0-16.0) gm/dl Hct (35-47) % MCV (78-100) fl MCH (26-32) pg MCHC (32-36) g/dl RDW (11.5-14.0) % Plt Count (150-450) K/mm3 MPV (6-9.5) fl Gran % (36.0-66.0) % Eos # (Auto) (0-0.5) Absolute Lymphs (auto) (1.0-4.6) Absolute Monos (auto) (0.0-1.3) Lymphocytes % (24.0-44.0) % Monocytes % (0.0-12.0) % Eosinophils % (0.00-5.0) % Basophils % (0.0-0.4) % Absolute Granulocytes (1.4-6.9) Segmented Neutrophils (36.0-66.0) % Lymphocytes (Manual) (24-44) % Monocytes (Manual) (0.0-12.0) % Basophils # (0-0.4) Platelet Estimate (NORMAL) RBC Morphology Poikilocytosis Anisocytosis Smear Path Review Sodium 136 L (137-145) mmol/L Potassium 3.5 (3.5-5.1) mmol/L Chloride 103 (98-107) mmol/L Carbon Dioxide 27 (22-30) mmol/L Anion Gap 9.8 (5-15) MEQ/L BUN 8 (7-17) mg/dL Creatinine 0.83 (0.52-1.04) mg/dL Estimated GFR > 60.0 ML/MIN Glucose 124 H (74-106) mg/dL Lactic Acid (0.4-2.0) Calcium 8.4 (8.4-10.2) mg/dL Magnesium 1.9 (1.6-2.3) mg/dL Total Bilirubin (0.2-1.3) mg/dL AST (14-36) U/L ALT (0-35) U/L Alkaline Phosphatase (38-126) U/L Troponin I (0.000-0.034) ng/mL Serum Total Protein (6.3-8.2) g/dL Albumin (3.5-5.0) g/dL Urine Color (YELLOW) Urine Appearance (CLEAR) Urine pH (5-6) Ur Specific [place] (1.005-1.025) Urine Protein (Negative) Urine Ketones (NEGATIVE) Urine Blood (0-5) Lamont/ul Urine Nitrite (NEGATIVE) Urine Bilirubin (NEGATIVE) Urine Urobilinogen (0-1) mg/dL Ur Leukocyte Esterase (NEGATIVE) Urine WBC (Auto) (0-5) /HPF Urine RBC (Auto) (0-2) /HPF U Epithel Cells (Auto) (FEW) /HPF Urine Bacteria (Auto) (NEGATIVE) /HPF Urine Mucus (Auto) (NEGATIVE) /HPF Urine Culture Reflexed (NO) Urine Glucose (NEGATIVE) mg/dL Radiology Exams: Radiology Procedures Category Date Time Status ABDOMEN 2 VIEW Routine Exams 08/13/18 17:45 Completed Assessment/Plan (1) Salmonella enteritis Current Visit: Yes Status: Acute Assessment & Plan: On IV rocephin 2 g q 24h. Added flagyl this morning in light of elevated WBC count to cover other pathogens. Code(s): A02.0 - SALMONELLA ENTERITIS (2) Abdominal pain Current Visit: No Status: Resolved Qualifiers: Abdominal location: epigastric Qualified Code(s): R10.13 - Epigastric pain Assessment & Plan: tenderness is slight. Code(s): R10.9 - UNSPECIFIED ABDOMINAL PAIN (3) Diabetes mellitus Current Visit: Yes Status: Acute Qualifiers: Diabetes mellitus type: type 2 Diabetes mellitus exterminator insulin use: without penitentiary use Diabetes mellitus complication status: without complication Qualified Code(s): E11.9 - Type 2 diabetes mellitus without complications Code(s): E11.9 - TYPE 2 DIABETES MELLITUS WITHOUT COMPLICATIONS (4) Hypothyroid Current Visit: Yes Status: Chronic Qualifiers: Hypothyroidism type: acquired Qualified Code(s): E03.9 - Hypothyroidism, unspecified Code(s): E03.9 - HYPOTHYROIDISM, UNSPECIFIED (5) Herpes labialis Current Visit: Yes Status: Acute Assessment & Plan: add acyclovir. Code(s): B00.1 - HERPESVIRAL VESICULAR DERMATITIS
[2018-08-14] MEDS: ROCEPHIN 2 Gm-D5w 50ML BAG** 2 G/50 ML IVPB IV SCH (09:16)
[2018-08-14] MEDS: Lasix 40 MG PO SCH (09:16)
[2018-08-14] MEDS: SYNTHROID 100 MCG PO SCH (09:16)
[2018-08-14] MEDS: SYNTHROID 25 MCG PO SCH (09:16)
[2018-08-14] MEDS: Klor Con 10 MEQ PO SCH ×2 (09:16→21:18)
[2018-08-14] MEDS: Acidophilus TABLET PO SCH (09:16)
[2018-08-14] MEDS: Zestril 10 MG PO SCH (09:17)
[2018-08-14] MEDS: ZOVIRAX 800 MG PO SCH ×2 (09:18→21:18)
[2018-08-14] MEDS ORDERED: NON-FORMULARY ITEM (Levothyroxine Sodium [Synthroid] 200 MCG) PO SCH (10:00)
[2018-08-14 12:34] LABS: 027 TOX PROD PRESUMPTIVE NEGATIVE (NEGATIVE); TOXIGENIC C. DIFF ORG POSITIVE (NEGATIVE)
[2018-08-14] MEDS: NORCO 5/325 MG PO PRN (18:12)
[2018-08-14] MEDS ORDERED: TORAdol 30 mg Injection IV PRN (21:33)
[2018-08-14] MEDS: TYLENOL 325 MG PO PRN (21:40)
[2018-08-15] MEDS: Lactated Ringers 1,000 ML IV SCH ×2 (03:32→16:48)
[2018-08-15] MEDS: FLAGYL 500 MG IVPB 500 MG/100 ML BAG IV SCH ×4 (06:41→23:20)
[2018-08-15 08:07] LABS: Hematocrit 38.6 % (35-47); Hemoglobin 12.1 gm/dl (12.0-16.0); Mean Cell Volume 78.5 fl (78-100); Mean Corpuscular Hemoglobin 24.6 pg (26-32); Mean Corpuscular Hgb Concent. 31.3 g/dl (32-36); Mean Platelet Volume 10.2 fl (6-9.5); Platelet Count 316 K/mm3 (150-450); Red Blood Count 4.92 M/mm3 (4.1-5.4); Red Cell Distribution Width 16.4 % (11.5-14.0); White Blood Count 15.2 K/mm3 (4.0-10.5)
[2018-08-15 08:13] LABS: ANION GAP 9.1 MEQ/L (5-15); BLOOD UREA NITROGEN 6 mg/dL (7-17); CHLORIDE 103 mmol/L (98-107); Calcium 8.6 mg/dL (8.4-10.2); Carbon Dioxide 31 mmol/L (22-30); Creatinine 1 0.64 mg/dL (0.52-1.04); Glucose 112 mg/dL (74-106); Potassium 3.8 mmol/L (3.5-5.1); SODIUM 139 mmol/L (137-145)
--- NOTE | 2018-08-15 09:18 | PCM.NOTE ---
Date and Time: 08/15/18914 Subjective Assessment: Pt was found to have + C. diff yesterday. WBC down this morning. She has continued to have watery stools. Had MILLER last night. Had toradol this morning. Sandra po well. No complaining of abd pain this morning. - Review of Systems Constitutional: No Fever Abdominal/Gastrointestinal: Diarrhea Objective Exam General Appearance: no apparent distress, alert, obese Neurologic Exam: oriented x 3, cooperative Skin Exam: normal color, warm, dry, No rash Respiratory Exam: normal breath sounds, lungs clear, No crackles/rales, No rhonchi, No stridor Cardiovascular Exam: regular rate/rhythm, normal heart sounds, No murmur Gastrointestinal/Abdomen Exam: soft, tenderness (epigastrum), No normal bowel sounds (hypoactive but present), No distention, No mass, No guarding, No rebound Extremity Exam: No pedal edema, No swelling Back Exam: normal inspection, No rash OBJECTIVE DATA Vital Signs: Vital Signs - 24 hr Temp Pulse Resp BP Pulse Ox 08/15/18 07:34 97.5 F 75 18 135/90 96 08/15/18 03:39 97.8 F 76 18 126/99 96 08/14/18 23:52 97.4 F 79 18 119/74 94 L 08/14/18 21:20 97.1 F 80 18 164/93 94 L 08/14/18 15:42 98.3 F 79 18 126/56 93 L 08/14/18 12:00 98.7 F 94 H 18 120/67 95 Pain Assessment - Last Documented Pain Intensity 3 Pain Scale Used 0-10 Pain Scale Intake and Output: Intake & Output 08/12/18 08/13/18 08/14/18 08/15/18 11:59 11:59 11:59 11:59 Intake Total 860 3587 Output Total 1050 3300 Balance -190 287 Weight 112.5 kg Lab Results: Lab Results-Last 24 Hours 08/13/18 08/14/18 08/15/18 Range/Units 17:50 10:48 07:47 WBC 15.2 H (4.0-10.5) K/mm3 RBC 4.92 (4.1-5.4) M/mm3 Hgb 12.1 (12.0-16.0) gm/dl Hct 38.6 (35-47) % MCV 78.5 (78-100) fl MCH 24.6 L (26-32) pg MCHC 31.3 L (32-36) g/dl RDW 16.4 H (11.5-14.0) % Plt Count 316 (150-450) K/mm3 MPV 10.2 H (6-9.5) fl Smear Path Review Sodium (137-145) mmol/L Potassium (3.5-5.1) mmol/L Chloride (98-107) mmol/L Carbon Dioxide (22-30) mmol/L Anion Gap (5-15) MEQ/L BUN (7-17) mg/dL Creatinine (0.52-1.04) mg/dL Estimated GFR ML/MIN Glucose (74-106) mg/dL Calcium (8.4-10.2) mg/dL Stl C. diff Tox B Gene POSITIVE (NEGATIVE) C.difficile 027-NAP1-B1 PRESUMPTIVE NEGATIVE (NEGATIVE) 08/15/18 Range/Units 07:47 WBC (4.0-10.5) K/mm3 RBC (4.1-5.4) M/mm3 Hgb (12.0-16.0) gm/dl Hct (35-47) % MCV (78-100) fl MCH (26-32) pg MCHC (32-36) g/dl RDW (11.5-14.0) % Plt Count (150-450) K/mm3 MPV (6-9.5) fl Smear Path Review Sodium 139 (137-145) mmol/L Potassium 3.8 (3.5-5.1) mmol/L Chloride 103 (98-107) mmol/L Carbon Dioxide 31 H (22-30) mmol/L Anion Gap 9.1 (5-15) MEQ/L BUN 6 L (7-17) mg/dL Creatinine 0.64 (0.52-1.04) mg/dL Estimated GFR > 60.0 ML/MIN Glucose 112 H (74-106) mg/dL Calcium 8.6 (8.4-10.2) mg/dL Stl C. diff Tox B Gene (NEGATIVE) C.difficile 027-NAP1-B1 (NEGATIVE) Radiology Exams: Radiology Procedures Category Date Time Status ABDOMEN 2 VIEW Routine Exams 08/13/18 17:45 Completed Assessment/Plan (1) C. difficile colitis Current Visit: Yes Status: Acute Assessment & Plan: on flagyl IV. I anticipate she will start to have less stools over the next day or two. (2) Salmonella enteritis Current Visit: Yes Status: Acute Assessment & Plan: On Rocephin 2g IV daily. Code(s): A02.0 - SALMONELLA ENTERITIS (3) Abdominal pain Current Visit: No Status: Resolved Qualifiers: Abdominal location: epigastric Qualified Code(s): R10.13 - Epigastric pain Code(s): R10.9 - UNSPECIFIED ABDOMINAL PAIN (4) Diabetes mellitus Current Visit: Yes Status: Chronic Qualifiers: Diabetes mellitus type: type 2 Diabetes mellitus prison insulin use: without prison use Diabetes mellitus complication status: without complication Qualified Code(s): E11.9 - Type 2 diabetes mellitus without complications Code(s): E11.9 - TYPE 2 DIABETES MELLITUS WITHOUT COMPLICATIONS (5) Hypothyroid Current Visit: Yes Status: Chronic Qualifiers: Hypothyroidism type: acquired Qualified Code(s): E03.9 - Hypothyroidism, unspecified Code(s): E03.9 - HYPOTHYROIDISM, UNSPECIFIED (6) Herpes labialis Current Visit: Yes Status: Acute Assessment & Plan: on acyclovir po Code(s): B00.1 - HERPESVIRAL VESICULAR DERMATITIS
[2018-08-15 09:43] LABS: ATYPICAL LYMPHS 2 %; Eosinophil 1 % (0.00-3.0); Lymphocytes 13 % (24-44); Monocyte 6 % (0.0-12.0); Neutrophils 78 % (36.0-66.0); Total Cells Counted 100; Toxic Granulation 1+
[2018-08-15 09:44] LABS: Platelet Estimate NORMAL (NORMAL)
[2018-08-15] MEDS: Klor Con 10 MEQ PO SCH ×2 (09:49→22:23)
[2018-08-15] MEDS: SYNTHROID 25 MCG PO SCH (09:49)
[2018-08-15] MEDS: ROCEPHIN 2 Gm-D5w 50ML BAG** 2 G/50 ML IVPB IV SCH (09:49)
[2018-08-15] MEDS: SYNTHROID 100 MCG PO SCH (09:49)
[2018-08-15 09:50] LABS: ANISOCYTOSIS 1+
[2018-08-15] MEDS: Lasix 40 MG PO SCH (09:50)
[2018-08-15] MEDS: Acidophilus TABLET PO SCH (09:50)
[2018-08-15] MEDS: ZOVIRAX 800 MG PO SCH ×2 (09:50→22:23)
[2018-08-15] MEDS: Zestril 10 MG PO SCH (09:50)
[2018-08-15] MEDS: Zofran 4 MG/2 ML VIAL IV PRN ×2 (10:07→18:16)
[2018-08-15] MEDS: TYLENOL 325 MG PO PRN (18:16)
[2018-08-16] MEDS: NORCO 5/325 MG PO PRN ×2 (00:59→21:33)
[2018-08-16] MEDS: Lactated Ringers 1,000 ML IV SCH ×3 (04:17→16:32)
[2018-08-16] MEDS: FLAGYL 500 MG IVPB 500 MG/100 ML BAG IV SCH ×4 (06:19→23:36)
[2018-08-16 08:29] LABS: Hematocrit 38.6 % (35-47); Hemoglobin 12.3 gm/dl (12.0-16.0); Mean Cell Volume 78.5 fl (78-100); Mean Corpuscular Hgb Concent. 31.9 g/dl (32-36); Mean Platelet Volume 9.8 fl (6-9.5); Platelet Count 317 K/mm3 (150-450); Red Blood Count 4.92 M/mm3 (4.1-5.4); Red Cell Distribution Width 16.3 % (11.5-14.0); White Blood Count 8.7 K/mm3 (4.0-10.5)
--- NOTE | 2018-08-16 08:55 | PCM.NOTE ---
Date and Time: 08/16/18 0851 Subjective Assessment: Lab called with 1 bottle blood culture GPC. She is tolerating po but still decreased appetite. Labs pending. intermittent epigastric pain. Her stools are firming up. - Review of Systems Constitutional: No Fever Abdominal/Gastrointestinal: Abdominal Pain, Diarrhea Objective Exam General Appearance: no apparent distress, alert, obese Neurologic Exam: oriented x 3, cooperative Skin Exam: normal color, warm, dry, No rash Respiratory Exam: normal breath sounds, lungs clear, No crackles/rales, No rhonchi, No wheezing Cardiovascular Exam: regular rate/rhythm, normal heart sounds, No murmur Gastrointestinal/Abdomen Exam: soft, tenderness (epigastrum), No normal bowel sounds (hypoactive but present), No distention, No mass, No guarding, No rebound Extremity Exam: No pedal edema, No swelling Back Exam: normal inspection, No rash OBJECTIVE DATA Vital Signs: Vital Signs - 24 hr Temp Pulse Resp BP Pulse Ox 08/16/18 07:29 97.5 F 70 20 138/87 98 08/16/18 04:00 97.5 F 69 14 132/81 94 L 08/16/18 00:00 97.6 F 69 14 136/76 92 L 08/15/18 20:41 98.2 F 82 16 137/71 96 08/15/18 16:40 97.6 F 69 18 142/73 96 08/15/18 11:58 97.7 F 71 18 126/76 93 L Pain Assessment - Last Documented Pain Intensity 0 Pain Scale Used 0-10 Pain Scale Intake and Output: Intake & Output 08/13/18 08/14/18 08/15/18 08/16/18 11:59 11:59 11:59 11:59 Intake Total 860 3827 4006 Output Total 1050 3300 1700 Balance -122 397 0112 Weight 112.5 kg 113.5 kg 113.5 kg Lab Results: Lab Results-Last 24 Hours 08/15/18 Range/Units 07:47 Segmented Neutrophils 78 H (36.0-66.0) % Lymphocytes (Manual) 13 L (24-44) % Monocytes (Manual) 6 (0.0-12.0) % Eosinophils (Manual) 1 (0.00-3.0) % Atypical Lymphocytes 2 % Toxic Granulation 1+ Platelet Estimate NORMAL (NORMAL) RBC Morphology ABNORMAL Anisocytosis 1+ Assessment/Plan (1) C. difficile colitis Current Visit: Yes Status: Acute Assessment & Plan: On flagyl. Starting to show a little improvement. Will probably stlil need several days of IV antibiotics. (2) Salmonella enteritis Current Visit: Yes Status: Acute Assessment & Plan: On rocephin 2g IV daily. 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
[2018-08-16 09:08] LABS: ANION GAP 8.6 MEQ/L (5-15); BLOOD UREA NITROGEN 8 mg/dL (7-17); CHLORIDE 103 mmol/L (98-107); Calcium 8.6 mg/dL (8.4-10.2); Carbon Dioxide 31 mmol/L (22-30); Creatinine 1 0.63 mg/dL (0.52-1.04); Glucose 100 mg/dL (74-106); SODIUM 138 mmol/L (137-145)
[2018-08-16] MEDS: SYNTHROID 100 MCG PO SCH (09:21)
[2018-08-16] MEDS: Klor Con 10 MEQ PO SCH ×2 (09:21→21:34)
[2018-08-16] MEDS: Zestril 10 MG PO SCH (09:21)
[2018-08-16] MEDS: ZOVIRAX 800 MG PO SCH ×2 (09:21→21:34)
[2018-08-16] MEDS: SYNTHROID 25 MCG PO SCH (09:21)
[2018-08-16] MEDS: Acidophilus TABLET PO SCH (09:21)
[2018-08-16] MEDS: Lasix 40 MG PO SCH (09:21)
[2018-08-16] MEDS: ROCEPHIN 2 Gm-D5w 50ML BAG** 2 G/50 ML IVPB IV SCH (09:22)
[2018-08-16 11:19] LABS: ANISOCYTOSIS 1+; ATYPICAL LYMPHS 1 %; Eosinophil 1 % (0.00-3.0); Lymphocytes 41 % (24-44); Monocyte 1 % (0.0-12.0); Neutrophils 56 % (36.0-66.0); Platelet Estimate NORMAL (NORMAL); Poikilocytosis 1+; Total Cells Counted 100
[2018-08-16] MEDS: TYLENOL 325 MG PO PRN (11:49)
[2018-08-17] MEDS: Lactated Ringers 1,000 ML IV SCH ×2 (02:18→17:15)
[2018-08-17] MEDS: FLAGYL 500 MG IVPB 500 MG/100 ML BAG IV SCH ×4 (06:29→23:49)
[2018-08-17] MEDS ORDERED: Zestril 10 MG PO SCH (07:26)
--- NOTE | 2018-08-17 07:58 | PCM.NOTE ---
Date and Time: 08/17/18 0756 Subjective Assessment: Pt slept last night, and this morning she went to urinate without needing to have a BM! Her abd pain is decreasing. - Review of Systems Constitutional: No Fever Abdominal/Gastrointestinal: Abdominal Pain, Diarrhea Objective Exam General Appearance: no apparent distress, alert, obese Neurologic Exam: oriented x 3, cooperative Skin Exam: normal color, warm, dry, No rash Respiratory Exam: normal breath sounds, lungs clear, No crackles/rales, No rhonchi, No wheezing Cardiovascular Exam: regular rate/rhythm, normal heart sounds, No murmur Gastrointestinal/Abdomen Exam: soft, normal bowel sounds, tenderness (epigastrum , mild), No distention, No mass, No guarding, No rebound Extremity Exam: No pedal edema, No swelling Back Exam: normal inspection, No rash OBJECTIVE DATA Vital Signs: Vital Signs - 24 hr Temp Pulse Resp BP Pulse Ox 08/17/18 07:00 97.9 F 69 17 173/94 92 L 08/17/18 03:00 97.7 F 64 14 141/91 93 L 08/16/18 23:00 97.7 F 67 14 139/98 94 L 08/16/18 19:52 97.6 F 65 17 150/83 95 08/16/18 17:04 97.7 F 64 20 173/93 96 08/16/18 12:00 97.7 F 69 18 167/82 94 L Pain Assessment - Last Documented Pain Intensity 0 Pain Scale Used 0-10 Pain Scale Intake and Output: Intake & Output 08/14/18 08/15/18 08/16/18 08/17/18 11:59 11:59 11:59 11:59 Intake Total 860 3827 4246 2345 Output Total 1050 3300 1900 3200 Balance -774 013 9534 -855 Weight 112.5 kg 113.5 kg 113.5 kg Lab Results: Lab Results-Last 24 Hours 08/16/18 08/16/18 Range/Units 08:18 08:18 WBC 8.7 (4.0-10.5) K/mm3 RBC 4.92 (4.1-5.4) M/mm3 Hgb 12.3 (12.0-16.0) gm/dl Hct 38.6 (35-47) % MCV 78.5 (78-100) fl MCH 25.0 L (26-32) pg MCHC 31.9 L (32-36) g/dl RDW 16.3 H (11.5-14.0) % Plt Count 317 (150-450) K/mm3 MPV 9.8 H (6-9.5) fl Segmented Neutrophils 56 (36.0-66.0) % Lymphocytes (Manual) 41 (24-44) % Monocytes (Manual) 1 (0.0-12.0) % Eosinophils (Manual) 1 (0.00-3.0) % Atypical Lymphocytes 1 % Platelet Estimate NORMAL (NORMAL) RBC Morphology ABNORMAL Poikilocytosis 1+ Anisocytosis 1+ Sodium 138 (137-145) mmol/L Potassium 4.0 (3.5-5.1) mmol/L Chloride 103 (98-107) mmol/L Carbon Dioxide 31 H (22-30) mmol/L Anion Gap 8.6 (5-15) MEQ/L BUN 8 (7-17) mg/dL Creatinine 0.63 (0.52-1.04) mg/dL Estimated GFR > 60.0 ML/MIN Glucose 100 (74-106) mg/dL Calcium 8.6 (8.4-10.2) mg/dL Multi-Disciplinary Progress Notes: Multi-Disciplinary Progress Notes 08/16/18 10:50 (created 08/16/18 13:50) Case Management Note by Suzy Ren INDEPENDENT WITH ALL ADL'S. PLANNING TO RETURN HOME TO PRE EPISODIC LEVEL OF FNX. Initialized on 08/16/18 13:50 - END OF NOTE Assessment/Plan (1) C. difficile colitis Current Visit: Yes Status: Acute Assessment & Plan: On IV flagyl - starting to improve. Will see how many BMs she has today, also may have more wiht eating. (2) Salmonella enteritis Current Visit: Yes Status: Acute Assessment & Plan: on IV rocephin. Code(s): A02.0 - SALMONELLA ENTERITIS (3) Abdominal pain Current Visit: No Status: Resolved Qualifiers: Abdominal location: epigastric Qualified Code(s): R10.13 - Epigastric pain Assessment & Plan: improved Code(s): R10.9 - UNSPECIFIED ABDOMINAL PAIN (4) Diabetes mellitus Current Visit: Yes Status: Chronic Qualifiers: Diabetes mellitus type: type 2 Diabetes mellitus terminal carman insulin use: without residential use Diabetes mellitus complication status: without complication Qualified Code(s): E11.9 - Type 2 diabetes mellitus without complications Code(s): E11.9 - TYPE 2 DIABETES MELLITUS WITHOUT COMPLICATIONS (5) Hypothyroid Current Visit: Yes Status: Chronic Qualifiers: Hypothyroidism type: acquired Qualified Code(s): E03.9 - Hypothyroidism, unspecified Code(s): E03.9 - HYPOTHYROIDISM, UNSPECIFIED (6) Herpes labialis Current Visit: Yes Status: Acute Code(s): B00.1 - HERPESVIRAL VESICULAR DERMATITIS
[2018-08-17] MEDS: ROCEPHIN 2 Gm-D5w 50ML BAG** 2 G/50 ML IVPB IV SCH (10:06)
[2018-08-17] MEDS: SYNTHROID 100 MCG PO SCH (10:06)
[2018-08-17] MEDS: Acidophilus TABLET PO SCH ×2 (10:07→10:34)
[2018-08-17] MEDS: ZOVIRAX 800 MG PO SCH ×2 (10:07→22:01)
[2018-08-17] MEDS: SYNTHROID 25 MCG PO SCH (10:07)
[2018-08-17] MEDS: Klor Con 10 MEQ PO SCH ×2 (10:09→22:00)
[2018-08-17] MEDS: Lasix 40 MG PO SCH (10:10)
[2018-08-17] MEDS: Zestril 20 MG PO SCH (10:14)
[2018-08-17] MEDS: TYLENOL 325 MG PO PRN (17:14)
[2018-08-18] MEDS: Lactated Ringers 1,000 ML IV SCH (04:15)
[2018-08-18] MEDS: FLAGYL 500 MG IVPB 500 MG/100 ML BAG IV SCH ×2 (06:34→12:33)
[2018-08-18] MEDS: Klor Con 10 MEQ PO SCH ×2 (09:51→22:14)
[2018-08-18] MEDS: ROCEPHIN 2 Gm-D5w 50ML BAG** 2 G/50 ML IVPB IV SCH (09:51)
[2018-08-18] MEDS: Zestril 20 MG PO SCH (09:51)
[2018-08-18] MEDS: SYNTHROID 100 MCG PO SCH (09:51)
[2018-08-18] MEDS: SYNTHROID 25 MCG PO SCH (09:51)
[2018-08-18] MEDS: Flagyl 500 MG PO SCH ×3 (09:51→22:14)
[2018-08-18] MEDS: Acidophilus TABLET PO SCH (09:51)
[2018-08-18] MEDS: Lasix 40 MG PO SCH (09:52)
[2018-08-18] MEDS: ZOVIRAX 800 MG PO SCH ×2 (09:52→22:19)
[2018-08-18] MEDS ORDERED: Sodium Chloride 0.9% 10 ML FLUSH Syringe IV PRN (13:00)
[2018-08-18] MEDS: Sodium Chloride 0.9% 10 ML FLUSH Syringe IV SCH ×2 (14:06→22:14)
[2018-08-19] MEDS ORDERED: Tums EX 750 MG PO PRN ×2 (04:01→07:45)
[2018-08-19] MEDS: Sodium Chloride 0.9% 10 ML FLUSH Syringe IV SCH ×3 (06:10→21:38)
[2018-08-19] MEDS: PROTONIX 40 MG IV IV SCH (08:50)
[2018-08-19] MEDS: Klor Con 10 MEQ PO SCH ×2 (10:29→21:38)
[2018-08-19] MEDS: Zestril 20 MG PO SCH (10:29)
[2018-08-19] MEDS: Acidophilus TABLET PO SCH (10:29)
[2018-08-19] MEDS: Lasix 40 MG PO SCH (10:29)
[2018-08-19] MEDS: Flagyl 500 MG PO SCH ×3 (10:29→21:38)
[2018-08-19] MEDS: ROCEPHIN 2 Gm-D5w 50ML BAG** 2 G/50 ML IVPB IV SCH (10:29)
[2018-08-19] MEDS: SYNTHROID 25 MCG PO SCH (10:30)
[2018-08-19] MEDS: ZOVIRAX 800 MG PO SCH ×2 (10:30→21:39)
[2018-08-19] MEDS: SYNTHROID 100 MCG PO SCH (10:30)
[2018-08-19 19:41] LABS: 027 TOX PROD PRESUMPTIVE NEGATIVE (NEGATIVE); TOXIGENIC C. DIFF ORG NEGATIVE (NEGATIVE)
[2018-08-20] MEDS: Sodium Chloride 0.9% 10 ML FLUSH Syringe IV SCH ×2 (05:42→13:40)
[2018-08-20 05:53] LABS: BASOPHIL % 0.7 % (0.0-0.4); Basophil (Absolute #) 0.07 (0-0.4); Eosinophil % 2.5 % (0.00-5.0); Eosinophil (Absolute #) 0.25 (0-0.5); Granulocyte Absolute (ANC) 5.15 (1.4-6.9); Granulocytes % 52.3 % (36.0-66.0); Hematocrit 42.9 % (35-47); Hemoglobin 13.6 gm/dl (12.0-16.0); Lymphocyte (Absolute #) 3.18 (1.0-4.6); Lymphocytes % 32.3 % (24.0-44.0); Mean Cell Volume 77.2 fl (78-100); Mean Corpuscular Hgb Concent. 31.7 g/dl (32-36); Mean Platelet Volume 10.5 fl (6-9.5); Monocytes % 12.2 % (0.0-12.0); Platelet Count 388 K/mm3 (150-450); Red Blood Count 5.56 M/mm3 (4.1-5.4); Red Cell Distribution Width 16.4 % (11.5-14.0); White Blood Count 9.9 K/mm3 (4.0-10.5)
[2018-08-20 06:13] LABS: Mean Corpuscular Hemoglobin 24.4 pg (26-32)
[2018-08-20 06:32] LABS: ALBUMIN 3.4 g/dL (3.5-5.0); ALKALINE PHOSPHATASE 92 U/L (38-126); ANION GAP 12.8 MEQ/L (5-15); BLOOD UREA NITROGEN 8 mg/dL (7-17); CHLORIDE 103 mmol/L (98-107); Calcium 9.2 mg/dL (8.4-10.2); Carbon Dioxide 28 mmol/L (22-30); Creatinine 1 0.71 mg/dL (0.52-1.04); Glucose 115 mg/dL (74-106); Potassium 4.2 mmol/L (3.5-5.1); SGOT/AST 12 U/L (14-36); SGPT/ALT 15 U/L (0-35); SODIUM 139 mmol/L (137-145); Total Protein 6.8 g/dL (6.3-8.2)
[2018-08-20] MEDS: PROTONIX 40 MG IV IV SCH (07:49)
--- NOTE | 2018-08-20 08:48 | PCM.DS ---
Discharge Summary Date of Admission: 08/14/18 09:04 Admitting Physician: ERIKA CHEN Primary Care Provider: ERIKA CHEN Allergies Allergies levofloxacin [From Levaquin] Allergy (Mild, Verified 06/04/12 08:13) rash, itching morphine Allergy (Verified 06/04/12 09:55) Hospital Summary - Hospital Course Hospital Course: Pt is a 53 yo female pt of mine from [facility] with DM who was admitted with salmonella diarrhea and found to have c. difficile as well. She was treated with IV rocephin for the salmonella (due to levaquin allergy) and IV flagyl for the c. diff. Over the weekend she had some stools that were less formed so c. diff was checked again and was negative. Pt has been tolerating increasing amounts of po. Initially she had abd pain but it has resolved. on admission pt's WBC were 28,000, then increased to 29,000 the next day - decreased when started treating for c. diff. Abd xray on admission was negative. Pt will be discharged to home on po flagyl and po protonix. Her BP was elevated during this stay, so her lisinopril was increased from 10mg po daily to 20mg po daily with good results. She will be checked for salmonella again today. 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 - Vitals & Intake/Output Vital Signs: Vital Signs Temperature 97.6 F 08/20/18 07:59 Pulse Rate 78 08/20/18 07:59 Respiratory Rate 16 08/20/18 07:59 Blood Pressure 128/85 08/20/18 07:59 O2 Sat by Pulse Oximetry 92 L 08/20/18 07:59 Intake & Output: Intake & Output 08/17/18 08/18/18 08/19/18 08/20/18 11:59 11:59 11:59 11:59 Intake Total 3610 4522 1920 2290 Output Total 3700 4000 3700 1050 Balance -90 522 -1780 1240 Weight 113 kg 112.8 kg 110.4 kg 109.8 kg - Lab Result Diagrams: 08/20/18 05:35 08/20/18 05:35 Lab Results-Last 24 Hrs: Lab Results-Last 24 Hours 04/21/19 04/22/19 04/22/19 Range/Units 18:22 05:35 05:35 WBC 9.9 (4.0-10.5) K/mm3 RBC 5.56 H (4.1-5.4) M/mm3 Hgb 13.6 (12.0-16.0) gm/dl Hct 42.9 (35-47) % MCV 77.2 L (78-100) fl MCH 24.4 L (26-32) pg MCHC 31.7 L (32-36) g/dl RDW 16.4 H (11.5-14.0) % Plt Count 388 (150-450) K/mm3 MPV 10.5 H (6-9.5) fl Gran % 52.3 (36.0-66.0) % Eos # (Auto) 0.25 (0-0.5) Absolute Lymphs (auto) 3.18 (1.0-4.6) Absolute Monos (auto) 1.20 (0.0-1.3) Lymphocytes % 32.3 (24.0-44.0) % Monocytes % 12.2 H (0.0-12.0) % Eosinophils % 2.5 (0.00-5.0) % Basophils % 0.7 (0.0-0.4) % Absolute Granulocytes 5.15 (1.4-6.9) Basophils # 0.07 (0-0.4) Sodium 139 (137-145) mmol/L Potassium 4.2 (3.5-5.1) mmol/L Chloride 103 (98-107) mmol/L Carbon Dioxide 28 (22-30) mmol/L Anion Gap 12.8 (5-15) MEQ/L BUN 8 (7-17) mg/dL Creatinine 0.71 (0.52-1.04) mg/dL Estimated GFR > 60.0 ML/MIN Glucose 115 H (74-106) mg/dL Calcium 9.2 (8.4-10.2) mg/dL Total Bilirubin 0.40 (0.2-1.3) mg/dL AST 12 L (14-36) U/L ALT 15 (0-35) U/L Alkaline Phosphatase 92 (38-126) U/L Serum Total Protein 6.8 (6.3-8.2) g/dL Albumin 3.4 L (3.5-5.0) g/dL Stl C. diff Tox B Gene NEGATIVE (NEGATIVE) C.difficile [id number] PRESUMPTIVE NEGATIVE (NEGATIVE) Micro Results-Entire Visit: Microbiology 08/13/18 17:45 Blood Culture Gram Stain - Final Blood Not Reportable Blood Culture - Final NO GROWTH 08/13/18 17:50 Blood Culture Gram Stain - Final Blood Not Reportable Blood Culture - Final NO GROWTH 08/13/18 18:25 Urine Culture - Final Urine, Void <10K NORMAL SKIN MOLINA PROBABLE SKIN CONTAMINANT Discharge Exam General Appearance: no apparent distress, alert, obese Neurologic Exam: oriented x 3, cooperative Skin Exam: normal color, warm, dry, No rash Respiratory Exam: normal breath sounds, lungs clear, No crackles/rales, No rhonchi, No wheezing Cardiovascular Exam: regular rate/rhythm, normal heart sounds, No murmur Gastrointestinal/Abdomen Exam: soft, No normal bowel sounds (hypoactive but present), No tenderness, No distention, No mass, No guarding, No rebound Extremity Exam: normal inspection, No pedal edema, No swelling Back Exam: normal inspection, No rash Final Diagnosis/Problem List - Final Discharge Diagnosis/Problem (1) C. difficile colitis Current Visit: Yes Status: Acute Assessment & Plan: Resolved. Will send home on po flagyl to finish 10d total course (3 more d). (2) Salmonella enteritis Current Visit: Yes Status: Acute Assessment & Plan: recheck. Advised that in some cases the body can shed salmonella for several weeks. however if she was not positive for salmonella, it would be reassuring not only in her personal life but for her return to work at the hospital. She should follow up with me at the end of this week. Code(s): A02.0 - SALMONELLA ENTERITIS (3) Diabetes mellitus Current Visit: Yes Status: Chronic Code(s): E11.9 - TYPE 2 DIABETES MELLITUS WITHOUT COMPLICATIONS (4) Hypothyroid Current Visit: Yes Status: Chronic Code(s): E03.9 - HYPOTHYROIDISM, UNSPECIFIED (5) Herpes labialis Current Visit: Yes Status: Resolved Code(s): B00.1 - HERPESVIRAL VESICULAR DERMATITIS (6) HTN (hypertension) Current Visit: Yes Status: Acute Assessment & Plan: lisinopril increased from 10 to 20mg po daily. home on 20mg po daily. Code(s): I10 - ESSENTIAL (PRIMARY) HYPERTENSION (7) Hypokalemia Current Visit: Yes Status: Acute Assessment & Plan: good on 10mEq KCl daily - recheck BMP in 1 week outpatient. Code(s): E87.6 - HYPOKALEMIA - Discharge Disposition: Home, Self-Care Condition: Good Prescriptions: New Lactobacillus Acidophilus [Acidophilus TABLET] 1 tab PO DAILY #30 tablet Metronidazole 500 mg [Flagyl 500 MG] 500 mg PO TID #9 tablet Potassium Chloride 10 Meq Tab* [Klor Con 10 MEQ] 10 meq PO BID #30 tab Lisinopril 20 mg [Zestril 20 MG] 20 mg PO DAILY #30 tablet Continue Furosemide 40 mg [Lasix 40 MG] 40 mg PO DAILY Levothyroxine Sodium [Synthroid] 200 mcg PO DAILY Levothyroxine Sodium 25 Mcg [Synthroid 25 Mcg] 25 mcg PO DAILY Meclizine HCl 12.5 mg PO TID PRN Discontinued Lisinopril 10 mg [Zestril 10 MG] 10 mg PO DAILY Sulfamethoxazole/Trimethoprim [Bactrim Ds Tablet] 1 each PO Q12H Follow up with: ERIKA CHEN [Primary Care Provider] - 08/24/18 10:15 am
--- NOTE | 2018-08-20 08:57 | PCM.DCORD ---
- Discharge Disposition: Home, Self-Care Condition: Good Prescriptions: New Lactobacillus Acidophilus [Acidophilus TABLET] 1 tab PO DAILY #30 tablet Metronidazole 500 mg [Flagyl 500 MG] 500 mg PO TID #9 tablet Potassium Chloride 10 Meq Tab* [Klor Con 10 MEQ] 10 meq PO BID #30 tab Lisinopril 20 mg [Zestril 20 MG] 20 mg PO DAILY #30 tablet Omeprazole 20 mg PO BID #60 capsule.dr Continue Furosemide 40 mg [Lasix 40 MG] 40 mg PO DAILY Levothyroxine Sodium [Synthroid] 200 mcg PO DAILY Levothyroxine Sodium 25 Mcg [Synthroid 25 Mcg] 25 mcg PO DAILY Meclizine HCl 12.5 mg PO TID PRN Discontinued Lisinopril 10 mg [Zestril 10 MG] 10 mg PO DAILY Sulfamethoxazole/Trimethoprim [Bactrim Ds Tablet] 1 each PO Q12H Follow up with: ERIKA CHEN [Primary Care Provider] - 08/24/18 10:15 am
[2018-08-20] MEDS: SYNTHROID 100 MCG PO SCH (10:23)
[2018-08-20] MEDS: Flagyl 500 MG PO SCH (10:24)
[2018-08-20] MEDS: Zestril 20 MG PO SCH (10:24)
[2018-08-20] MEDS: Acidophilus TABLET PO SCH (10:24)
[2018-08-20] MEDS: Lasix 40 MG PO SCH (10:24)
[2018-08-20] MEDS: SYNTHROID 25 MCG PO SCH (10:24)
[2018-08-20] MEDS: Klor Con 10 MEQ PO SCH (10:24)
[2018-08-20] MEDS: ROCEPHIN 2 Gm-D5w 50ML BAG** 2 G/50 ML IVPB IV SCH (11:00)
[2018-08-20] MEDS: ZOVIRAX 800 MG PO SCH (11:01)
[2018-08-20 12:41] VITALS: BP 123/86; PULSE 65; O2SAT 95
[2018-08-20 16:08] LABS: C. Difficile Organism NEGATIVE (NEGATIVE); Campylobacter NEGATIVE (NEGATIVE); Salmonella NEGATIVE (NEGATIVE)
[2018-08-20 16:09] LABS: Adenovirus F 40/41 NEGATIVE (NEGATIVE); Astrovirus NEGATIVE (NEGATIVE); Cyclospora cayentanensis NEGATIVE (NEGATIVE); Entamoeaba histolytica NEGATIVE (NEGATIVE); Enteroaggregative E.coli NEGATIVE (NEGATIVE); Giardia lamblia NEGATIVE (NEGATIVE); Rotavirus A NEGATIVE (NEGATIVE); Sapovirus NEGATIVE (NEGATIVE); Shiga-like toxin prod.E.coli NEGATIVE (NEGATIVE); Vibrio NEGATIVE (NEGATIVE)
== END 2018-08-20 15:02 | disposition home or self-care (01) | DRG 373 ==
LOC: MED SURG 09:04 → OBSVTOIN 08-14 09:04
PROVIDERS: ADMIT Family Medicine; ATTEND Family Medicine
DX: A04.72 Enterocolitis due to Clostridium difficile, not specified as recurrent (principal); A02.0 Salmonella enteritis; E11.9 Type 2 diabetes mellitus without complications; E03.9 Hypothyroidism, unspecified; B00.1 Herpesviral vesicular dermatitis; I10 Essential (primary) hypertension; E87.6 Hypokalemia; Z79.899 Other long term (current) drug therapy; R10.9 Unspecified abdominal pain; R51 Headache
CPT/HCPCS: 36415; 74021; 80048; 80053; 81001; 83605; 83735; 84484; 85025; 85027; 87040; 87086; 87493; 87507; G0378; J0696; J1885; J2405; A9270-GY

== ENCOUNTER 2022-05-31 16:49 | Emergency (ER) | payer OTHER ==
--- NOTE | 2022-05-31 17:04 | ERPHSYRPT ---
- History of Present Illness Time Seen by Provider: 05/31/22 17:03 Source: patient Exam Limitations: no limitations Physician History: This is a 57-year-old white female who is right-handed and was bitten by a dog that she is not familiar with in her neighborhood. There is a single bite to her left wrist. Patient has a history of diabetes, hypothyroidism and hypertension. Patient was placed on Augmentin yesterday and she has had 2 doses of this medication to treat a sinusitis. Patient's tetanus status is not up-to-date. She has no other complaints or medical issues Timing/Duration: today Quality: painful Severity: mild Location: extremities (Left wrist radial aspect) Possible Causes: other (Dog bite) Associated Symptoms: denies symptoms Allergies/Adverse Reactions: levofloxacin [From Levaquin] Allergy (Mild, Verified 05/31/22 17:01) rash, itching morphine Allergy (Verified 05/31/22 17:01) Home Medications: Furosemide 40 mg [Lasix 40 MG] 40 mg PO DAILY 08/08/12 [History] Levothyroxine Sodium [Synthroid] 100 mcg PO DAILY 08/09/12 [History] Potassium Chloride Tab* [Klor Con] 10 meq PO DAILY 05/31/22 [History] Semaglutide [Ozempic] 1 mg SQ WEEKLY 05/31/22 [History] Hx Tetanus, Diphtheria Vaccination/Date Given: No Hx Influenza Vaccination/Date Given: Yes Hx Pneumococcal Vaccination/Date Given: No Travel Risk - International Travel Have you traveled outside of the country in past 3 weeks: No - Coronavirus Screening Are you exhibiting any of the following symptoms?: No Close contact with a COVID-19 positive Pt in past 14-21 Days: No - Review of Systems Constitutional: No Symptoms Eyes: No Symptoms Ears, Nose, & Throat: No Symptoms Respiratory: No Symptoms Cardiac: No Symptoms Abdominal/Gastrointestinal: No Symptoms Genitourinary Symptoms: No Symptoms Musculoskeletal: No Symptoms Skin: Other (Dog bite single site left wrist radial aspect) Psychological: No Symptoms Endocrine: No Symptoms Hematologic/Lymphatic: No Symptoms Immunological/Allergic: No Symptoms All Other Systems: Reviewed and Negative - Past Medical History Pertinent Past Medical History: Yes Neurological History: No Pertinent History ENT History: No Pertinent History Cardiac History: Hypertension Respiratory History: No Pertinent History Endocrine Medical History: No Pertinent History Musculoskeletal History: No Pertinent History GI Medical History: No Pertinent History, Colitis History: No Pertinent History Psycho-Social History: No Pertinent History Female Reproductive Disorders: Fibroids - Past Surgical History Past Surgical History: Yes Neuro Surgical History: No Pertinent History Cardiac: No Pertinent History Respiratory: No Pertinent History Gastrointestinal: Appendectomy, Cholecystectomy Genitourinary: No Pertinent History Musculoskeletal: No Pertinent History, Orthopedic Surgery Female Surgical History: Hysterectomy Other Surgical History: FOOT SURGERY - Social History Smoking Status: Former smoker How long have you smoked: 4yrs Exposure to second hand smoke: No Drug Use: none Patient Lives Alone: Yes - Nursing Vital Signs Nursing Vital Signs: Initial Vital Signs Temperature 98.4 F 05/31/22 17:06 Pulse Rate 76 05/31/22 17:06 Respiratory Rate 20 05/31/22 17:06 Blood Pressure 149/90 05/31/22 17:06 O2 Sat by Pulse Oximetry 98 05/31/22 17:06 Pain Scale Pain Intensity 0 - Physical Exam General Appearance: no apparent distress, alert, anxiety Eye Exam: PERRL/EOMI, eyes nml inspection Ears, Nose, Throat Exam: normal ENT inspection, moist mucous membranes Neck Exam: normal inspection, non-tender, supple, full range of motion Respiratory Exam: airway intact, No chest tenderness, No respiratory distress Gastrointestinal/Abdomen Exam: No tenderness Pelvic Exam: not done Rectal Exam: not done Back Exam: normal inspection, normal range of motion, No CVA tenderness, No vertebral tenderness Neurologic Exam: alert, oriented x 3, cooperative, powder mixer II-XII nml as tested, normal mood/affect, nml cerebellar function, nml station & gait, sensation nml Skin Exam: other (4 mm axially oriented nonbleeding dog bite site radial aspect left wrist. Tendon intact. Patient is neurovascularly intact) Lymphatic Exam: No adenopathy SpO2 Interpretation: normal O2 Delivery: Room Air - Course Nursing assessment & vital signs reviewed: Yes Ordered Tests: Medication Summary Discontinued Medications Generic Name Dose Route Start Last Admin Trade Name Freq PRN Reason Stop Dose Admin Diphtheria/Tetanus/Acell Pertussis 0.5 ml 05/31/22 17:41 Tdap --Diph,Pertuss(Acell),Tet Vac/Pf 0.5 Ml Vial IM 05/31/22 17:42 .ONCE ONE - Progress Progress: unchanged Progress Note: 05/31/22 17:48 Medical decision making: This patient's medical issue is a low complexity. I reviewed the patient history with the patient, performed a physical exam that was a focused exam, I reviewed the patient's medication list and her allergy list. Based on the above, I ordered an Adacel injection with the patient's tetanus status is not up-to-date. Also, based on the above, I formulated an outpatient plan for this patient. I discussed the plan with the patient. Counseled pt/family regarding: diagnosis, need for follow-up - Departure Departure Disposition: Home Clinical Impression: Dog bite of left wrist Condition: Stable Critical Care Time: No Referrals: VALENTIN HERNANDEZ MD [Primary Care Provider] - Follow up/PCP as directed Additional Instructions: Keep the site clean daily with soap and water. Do not use any lotions or ointments or creams to the bite site. Continue your antibiotics of Augmentin as prescribed. Return to the emergency department or follow-up with your primary care physician if you are having signs of infection (redness, increased tenderness, pus drainage, or increased swelling). May apply ice pack to the site 2-3 times a day for the next 48 hours
[2022-05-31 17:25] VITALS: O2SAT 98
[2022-05-31] MEDS ORDERED: Adacel Vial IM ONE ×2 (17:41→17:59)
[2022-05-31 18:11] VITALS: BP 124/91; PULSE 72
== END 2022-05-31 18:26 | disposition home or self-care (01) ==
LOC: ED 16:49
DX: S60.872A Other superficial bite of left wrist, initial encounter (principal); W54.0XXA Bitten by dog, initial encounter; I10 Essential (primary) hypertension; Z79.85 Long-term (current) use of injectable non-insulin antidiabetic drugs; Z79.899 Other long term (current) drug therapy
CPT/HCPCS: 90471; 90715; 99282

== ENCOUNTER 2022-09-01 02:28 | Emergency (ER) | payer OTHER ==
[2022-09-01] MEDS ORDERED: NORCO 7.5/325 MG TAB PO ONE (03:41)
[2022-09-01] MEDS ORDERED: Cyclobenzaprine 10 MG PO ONE (03:47)
[2022-09-01] MEDS ORDERED: Cyclobenzaprine 10 MG ONE (03:58)
--- NOTE | 2022-09-01 04:14 | ERPHSYRPT ---
- History of Present Illness Source: patient Exam Limitations: no limitations Patient Subjective Stated Complaint: R sided lower back pain d/t injury Triage Nursing Assessment: pt ambulatory to bed by self with personal crutches, pt alert and oriented x3, pt c/o R lower back pain. pt was playing with grandchildren yesterday and per patient "twisted her back wrong." Physician History: Patient is a 57-year-old female presents with lower back pain. Patient reports her pain started yesterday while she was playing with her grandchildren. Patient reports feeling a sudden tightness in her back. Patient reports pain is constant, sharp and is rated at 9 out of 10. Patient reports having limited range of motion with extension or flexion. Reports having normal bowel and bladder function. Denies having any lower extremity weakness or loss of sensation.Reports she started some [id number] Tylenol no significant for symptoms. Timing/Duration: yesterday Allergies/Adverse Reactions: levofloxacin [From Levaquin] Allergy (Mild, Verified 09/01/22 02:38) rash, itching morphine Allergy (Verified 09/01/22 02:38) Home Medications: Furosemide 40 mg [Lasix 40 MG] 40 mg PO DAILY 08/08/12 [History] Levothyroxine Sodium [Synthroid] 100 mcg PO DAILY 08/09/12 [History] Potassium Chloride Tab* [Klor Con] 10 meq PO DAILY 05/31/22 [History] Semaglutide [Ozempic] 1 mg SQ WEEKLY 05/31/22 [History] Hx Tetanus, Diphtheria Vaccination/Date Given: Yes Hx Influenza Vaccination/Date Given: Yes Hx Pneumococcal Vaccination/Date Given: No Immunizations Up to Date: Yes Travel Risk - International Travel Have you traveled outside of the country in past 3 weeks: No - Coronavirus Screening Are you exhibiting any of the following symptoms?: No Close contact with a COVID-19 positive Pt in past 14-21 Days: No - Vaccine Status Have you recieved a Covid-19 vaccination: Yes Fabrication Supervisor: Tucker Blair - Vaccination Dates Date of 2cond Vaccination (if applicable): 2019 - Review of Systems Constitutional: No Fever, No Chills Eyes: No Symptoms Ears, Nose, & Throat: No Symptoms Respiratory: No Cough, No Dyspnea Cardiac: No Chest Pain, No Edema, No Syncope Abdominal/Gastrointestinal: No Abdominal Pain, No Nausea, No Vomiting, No Diarrhea Genitourinary Symptoms: No Dysuria Musculoskeletal: Back Pain (Right-sided paraspinal muscles of the lower thoracic/ lumbar area), No Neck Pain Skin: No Rash Neurological: No Dizziness, No Focal Weakness, No Sensory Changes Psychological: No Symptoms Endocrine: No Symptoms All Other Systems: Reviewed and Negative - Past Medical History Pertinent Past Medical History: Yes Neurological History: No Pertinent History ENT History: No Pertinent History Cardiac History: Hypertension Respiratory History: No Pertinent History Endocrine Medical History: No Pertinent History Musculoskeletal History: No Pertinent History GI Medical History: No Pertinent History, Colitis History: No Pertinent History Psycho-Social History: No Pertinent History Female Reproductive Disorders: Fibroids - Past Surgical History Past Surgical History: Yes Neuro Surgical History: No Pertinent History Cardiac: No Pertinent History Respiratory: No Pertinent History Gastrointestinal: Appendectomy, Cholecystectomy Genitourinary: No Pertinent History Musculoskeletal: No Pertinent History, Orthopedic Surgery Female Surgical History: Hysterectomy Other Surgical History: FOOT SURGERY - Social History Smoking Status: Former smoker How long have you smoked: 4yrs Exposure to second hand smoke: No Drug Use: none Patient Lives Alone: Yes - Nursing Vital Signs Nursing Vital Signs: Initial Vital Signs Temperature 99.0 F 09/01/22 02:49 Pulse Rate 68 09/01/22 02:49 Respiratory Rate 18 09/01/22 02:49 Blood Pressure 134/84 09/01/22 02:49 O2 Sat by Pulse Oximetry 96 09/01/22 02:49 Pain Scale Pain Intensity [Right Lower 10 Back] Pain Intensity 8 - Physical Exam General Appearance: mild distress Eye Exam: PERRL/EOMI, eyes nml inspection Ears, Nose, Throat Exam: normal ENT inspection, moist mucous membranes Neck Exam: normal inspection, non-tender, supple, full range of motion Respiratory Exam: normal breath sounds, lungs clear, No respiratory distress Cardiovascular Exam: regular rate/rhythm, normal heart sounds, normal peripheral pulses Gastrointestinal/Abdomen Exam: soft, normal bowel sounds, No tenderness, No mass Back Exam: normal inspection, normal range of motion, decreased range of motion (Limited range of motion to 20 degrees with flexion at about 10 degrees with extension. Unable to do rotation left or right due to pain.), muscle spasm (Right lower thoracic/lumbar paraspinal muscles noted to be taut and tender to palpation), point tenderness, No CVA tenderness, No vertebral tenderness Extremity Exam: normal inspection, normal range of motion, pelvis stable Neurologic Exam: alert, oriented x 3, cooperative, normal mood/affect, nml cerebellar function, nml station & gait, sensation nml, No motor deficits Skin Exam: normal color, warm, dry, No rash Lymphatic Exam: No adenopathy SpO2: 98 Ordered Tests: Active Orders 24 hr Category Date Time Status LUMBAR LIMITED (2 OR 3 VIEWS) Stat Exams 09/01/22 03:38 Taken THORACIC SPINE (AP,LAT,SWIMM) Stat Exams 09/01/22 03:38 Taken Medication Summary Discontinued Medications Generic Name Dose Route Start Last Admin Trade Name Freq PRN Reason Stop Dose Admin Hydrocodone Bitart/Acetaminophen 1 tab 09/01/22 03:41 09/01/22 04:17 Hydrocodone /Apap 7.5/325 Mg 1 Each Tablet PO 09/01/22 03:42 1 tab STAT ONE Administration Cyclobenzaprine HCl 5 mg 09/01/22 03:47 09/01/22 04:18 Cyclobenzaprine Hcl 10 Mg Tablet PO 09/01/22 03:48 5 mg STAT ONE Administration Cyclobenzaprine HCl Confirm 09/01/22 03:58 Cyclobenzaprine Hcl 10 Mg Tablet Administered 09/01/22 03:59 Dose 10 mg .ROUTE .STK-MED ONE Ketorolac Tromethamine 30 mg 09/01/22 05:36 09/01/22 05:43 Ketorolac Tromethamine 30 Mg/Ml Inj IM 09/01/22 05:37 30 mg STAT ONE Administration Ketorolac Tromethamine Confirm 09/01/22 05:42 Ketorolac Tromethamine 30 Mg/Ml Inj Administered 09/01/22 05:43 Dose 30 mg .ROUTE .STK-MED ONE - Progress Progress: improved Progress Note: 09/01/22 07: Reports improvement of her pain with medication. Patient in agreement to go home and to follow-up with PCP if symptoms continue. Charge patient with pain medication and muscle relaxer advised patient to continue stretches and use heating pad. Will see patient in: office - Departure Departure Disposition: Home Clinical Impression: Paraspinal muscle spasm Condition: Stable Critical Care Time: No Referrals: VALENTIN HERNANDEZ MD [Primary Care Provider] - Follow up/PCP as directed Instructions: Muscle Spasms (DC)
[2022-09-01] MEDS ORDERED: TORAdol 30 mg Injection IM ONE (05:36)
[2022-09-01] MEDS ORDERED: TORAdol 30 mg Injection ONE (05:42)
[2022-09-01] MEDS ORDERED: ZOFRAN ODT 4 MG PO ONE (08:19)
[2022-09-01] MEDS ORDERED: ZOFRAN ODT 4 MG ONE (08:19)
[2022-09-01 10:09] VITALS: BP 117/73; PULSE 68; O2SAT 98
--- NOTE | 2022-09-01 17:29 | XRAY ---
Indication: Back pain. Comparison: June 06, 2022 AP/lateral thoracic spine unchanged again demonstrating osteopenia, minimal levoscoliosis, mild/moderate multilevel bridging/nonbridging osteophytes, and a few pulmonary calcified granulomas. No new/acute findings.
--- NOTE | 2022-09-01 17:31 | XRAY ---
Indication: Pain. Limited range of motion. Comparison: None 3 view lumbar spine demonstrates 4 lumbar segments with osteopenia, minimal dextroscoliosis centered at L3, mild/moderate multilevel degenerative changes greatest at lumbosacral junction, and cholecystectomy clips. No other bony, articular, or soft tissue abnormalities.
== END 2022-09-01 10:10 | disposition home or self-care (01) ==
LOC: ED 02:28
DX: M62.830 Muscle spasm of back (principal); M54.50 Low back pain, unspecified; I10 Essential (primary) hypertension; Z79.85 Long-term (current) use of injectable non-insulin antidiabetic drugs; Z79.899 Other long term (current) drug therapy
CPT/HCPCS: 72072; 72100; 96372; 99283; J1885; Q0162; A9270-GY

== ENCOUNTER 2023-08-12 22:30 | Observation (INO) | payer OTHER ==
[2023-08-12] MEDS ORDERED: TORAdol 30 mg Injection ONE (23:16)
[2023-08-12] MEDS: TORAdol 30 mg Injection IM ONE (23:18)
--- NOTE | 2023-08-13 00:38 | XRAY ---
CLINICAL HISTORY: left hip and groin pain COMPARISON: None. TECHNIQUE: A CT scan of the pelvis was performed without IV contrast, Coronal and sagittal reconstructive images were also obtained. One of the following dose reduction techniques was utilized for this exam: Automated exposure control, adjustment of the mA and/or kV according to patient size, and use of iterative reconstruction. FINDINGS: Cortical irregularities and prominent osteophytes of the pelvic bones are noted, including iliac spines, greater tuberosity of femoral and right sacroiliac bone, and likely enteropathy. Left-sided bone fragment seen along the lateral aspect of the greater tuberosity. The right anterior sacroiliac bridging osteophyte is seen as osteitis pubis. Mild degenerative arthropathic changes of the hips. L5-S1 facet arthropathies are noted with L5 subtle anterolsithesis. Fat-containing anterior pelvic wall midline hernia is seen. The urinary bladder is unremarkable. Non-visualized uterus, likely surgically removed. The rectosigmoid colon is unremarkable. The pelvic vasculature is unremarkable. No evidence of pelvic lymphadenopathy. IMPRESSION: 1. Enteropathy of the iliac spines and greater tuberosities with left-sided bone fragments seen along the lateral aspect of the greater tuberosity. 2. Right anterior sacroiliac bridging osteophyte. 3. Osteitis pubis. 4. Mild degenerative arthropathic changes of the hips. 5. L5-S1 facet arthropathies are noted with L5 subtle anterolsithesis. 6. Fat-containing anterior pelvic wall midline hernia is seen. Electronically Signed by: Dottie Hoover MD. (08/13/2023 00:35:00 EDT)
--- NOTE | 2023-08-13 00:46 | XRAY ---
CLINICAL HISTORY: left hip and groin pain COMPARISON: None. TECHNIQUE: A CT scan of the Left lower extremity was performed without IV contrast. Coronal and sagittal reconstructive images were obtained. One of the following dose reduction techniques was utilized for this exam: Automated exposure control, adjustment of the mA and/or kV according to patient size, and use of iterative reconstruction. FINDINGS: cortical irregularities of the left femur and pelvis bones along the muscle attachment with related osteophytes are noted, including iliac spines, ischial spine, greater tuberosity of the femur, and acetabulum with a bone fragment seen along the lateral aspect of the greater tuberosity. mild degenerative changes of the left hip. the femoral head reveals a normal rounded contour. No evidence of articular collapse. No intra-articular loose bodies. There is no evidence of joint effusion. No evidence of obvious acute fracture was noted at the present examination. No lytic or sclerotic bone lesions. The visualized soft tissues are normal. IMPRESSION: 1. Ensethopathies along the left femur and pelvis bone muscles attachment with a bone fragment seen along the lateral aspect of the greater tuberosity. 2. Mild degenerative changes of the left hip joint. Electronically Signed by: Dottie Hoover MD. (08/13/2023 00:42:44 EDT)
--- NOTE | 2023-08-13 00:56 | ERPHSYRPT ---
- History of Present Illness Time Seen by Provider: 08/12/23 22:55 Source: patient Exam Limitations: no limitations Patient Subjective Stated Complaint: pt states that approx 26hrs ago she started experiencing 10/10 constant, sharp, stabbing pain to her left groin/upper thigh. 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 pt states that while she was jumping out of the way she could have caused injury but pain didn't start until >24hrs later. Triage Nursing Assessment: pt brought to room 8 via wheelchair and assisted into bed by staff x2. pt is alert and oriented times three, able to move all extremities (limited to left leg due to pain), able to speak in complete sentences and with resp even and unlabored. pt reports 10/10 pain that is sharp and stabbing to left groin and upper medial thigh. pt denies numbness, tingling, cp, sob, difficulty breathing, or any other complaint of groin pain that is increased anytime there is movement of left leg. Physician History: 58yo f presents via private vehicle for left groin and hip pain for the past 2d. 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 Allergies/Adverse Reactions: levofloxacin [From Levaquin] Allergy (Mild, Verified 08/12/23 22:39) rash, itching morphine Allergy (Verified 08/12/23 22:39) Home Medications: Furosemide 40 mg [Lasix 40 MG] 40 mg PO DAILY 08/08/12 [History] Levothyroxine Sodium [Synthroid] 100 mcg PO DAILY 08/09/12 [History] Potassium Chloride Tab* [Klor Con] 10 meq PO DAILY 05/31/22 [History] Semaglutide [Ozempic] 1 mg SQ WEEKLY 05/31/22 [History] Cholecalciferol (Vitamin D3) [Vitamin D3] 0 ml PO CLARIFY 08/12/23 [History] Multivitamin 1 each PO DAILY 08/12/23 [History] Hx Tetanus, Diphtheria Vaccination/Date Given: Yes Hx Influenza Vaccination/Date Given: Yes Hx Pneumococcal Vaccination/Date Given: No Immunizations Up to Date: No Travel Risk - International Travel Have you traveled outside of the country in past 3 weeks: No - Emerging Infectious Disease Are you exhibiting symptoms associated with any current EIDs: No - Past Medical History Pertinent Past Medical History: Yes Neurological History: No Pertinent History ENT History: No Pertinent History Cardiac History: Hypertension Respiratory History: No Pertinent History Endocrine Medical History: No Pertinent History Musculoskeletal History: No Pertinent History GI Medical History: Colitis History: No Pertinent History Psycho-Social History: No Pertinent History Female Reproductive Disorders: Fibroids - Past Surgical History Past Surgical History: Yes Neuro Surgical History: No Pertinent History Cardiac: No Pertinent History Respiratory: No Pertinent History Gastrointestinal: Appendectomy, Cholecystectomy Genitourinary: No Pertinent History Musculoskeletal: No Pertinent History, Orthopedic Surgery Female Surgical History: Hysterectomy Other Surgical History: FOOT SURGERY - Social History Smoking Status: Never smoker How long have you smoked: 4yrs Exposure to second hand smoke: No Drug Use: none Patient Lives Alone: Yes - Nursing Vital Signs Nursing Vital Signs: Initial Vital Signs Temperature 99.6 F 08/12/23 22:43 Pulse Rate 100 H 08/12/23 22:43 Respiratory Rate 20 08/12/23 22:43 Blood Pressure 198/123 08/12/23 22:43 O2 Sat by Pulse Oximetry 98 08/12/23 22:43 Pain Scale Pain Intensity 10 - Physical Exam SpO2: 98 Ordered Tests: Active Orders 24 hr Category Date Time Status LOWER EXTREMITY WO CONTRAST [CT] Stat Exams 08/12/23 23:12 Completed PELVIS WITHOUT CONTRAST [CT] Stat Exams 08/12/23 23:12 Completed Medication Summary Discontinued Medications Generic Name Dose Route Start Last Admin Trade Name Sonia PRN Reason Stop Dose Admin Ketorolac Tromethamine 30 mg 08/12/23 23:13 08/12/23 23:18 Ketorolac Tromethamine 30 Mg/Ml Inj IM 08/12/23 23:14 30 mg STAT ONE Administration Ketorolac Tromethamine Confirm 08/12/23 23:16 Ketorolac Tromethamine 30 Mg/Ml Inj Administered 08/12/23 23:17 Dose 30 mg .ROUTE .STK-MED ONE - Progress Progress: pain not gone completely Progress Note: 08/13/23 01:04 CT Left LE 1. Ensethopathies along the left femur and pelvis bone muscles attachment with a bone fragment seen along the lateral aspect of the greater tuberosity. 2. Mild degenerative changes of the left hip joint. pelvis CT 1. Enteropathy of the iliac spines and greater tuberosities with left-sided bone fragments seen along the lateral aspect of the greater tuberosity. 2. Right anterior sacroiliac bridging osteophyte. 3. Osteitis pubis. 4. Mild degenerative arthropathic changes of the hips. 5. L5-S1 facet arthropathies are noted with L5 subtle anterolsithesis. 6. Fat-containing anterior pelvic wall midline hernia is seen. I discussed pt case and CT findings w/ orthopedic surgeon Dr Gonzáles who recom mends to admit to obs, states he will see patient in the morning Will see patient in: hospital (observation) Counseled pt/family regarding: diagnosis, need for follow-up, rad results Medical Desision Making - Discussion of managment Care discussed with:: specialist Reviewed:: Test results, Need for additional workup Agreed on:: place in obs Will see patient: in hospital - Diagnostic Testing Diagnostic test were ordered, analyzed, and reviewed by me: Yes Radiological Interpretation: Reviewed by me, Teleradiologist Report - Risk of complications The pt has a high risk of morbidity or mortality based on: Decision regarding hospitilization or escalation of hosp level of care - Departure Departure Disposition: Observation Clinical Impression: Fragmented bone, Left groin pain Condition: Stable Critical Care Time: No Referrals: VALENTIN HERNANDEZ MD [Primary Care Provider] - Follow up/PCP as directed
[2023-08-13] MEDS ORDERED: SUBLIMAZE 100 MCG/2 ML ONE (01:30)
[2023-08-13] MEDS: SUBLIMAZE 100 MCG/2 ML IV ONE (01:32)
--- NOTE | 2023-08-13 02:34 | PCM.HP ---
History of Present Illness - Chief Complaint Chief Complaint: left hip bone fragment History of Present Illness: is a 58 year old female who presents with 10/10, sharp pain in her left upper groin, thigh that is acute and has been ongoing for the past [address] shows Enteropathy of the iliac spines and greater tuberosities with left-sidedbone fragments seen along the lateral aspect of the greater tuberosity, and ortho wants to evaluate for surgery in the AM. - Review of Systems Constitutional: No Fever, No Chills Eyes: No Symptoms Ears, Nose, & Throat: No Symptoms Respiratory: No Cough, No Short Of Breath Cardiac: No Chest Pain, No Edema, No Syncope Abdominal/Gastrointestinal: No Abdominal Pain, No Nausea, No Vomiting, No Diarrhea Genitourinary Symptoms: No Dysuria Musculoskeletal: No Back Pain, No Neck Pain Skin: No Rash Neurological: No Dizziness, No Focal Weakness, No Sensory Changes Psychological: No Symptoms Endocrine: No Symptoms Hematologic/Lymphatic: No Symptoms Immunological/Allergic: No Symptoms Medications & Allergies Home Medications: Home Medication List Furosemide 40 mg [Lasix 40 MG] 40 mg PO DAILY 08/08/12 [History Confirmed 08/12/23] Levothyroxine Sodium [Synthroid] 100 mcg PO DAILY 08/09/12 [History Confirmed 08/12/23] Lisinopril 20 mg [Zestril 20 MG] 20 mg PO DAILY #30 tablet 08/20/18 [Rx Confirmed 08/12/23] Potassium Chloride Tab* [Klor Con] 10 meq PO DAILY 05/31/22 [History Confirmed 08/12/23] Semaglutide [Ozempic] 1 mg SQ WEEKLY 05/31/22 [History Confirmed 08/12/23] Cholecalciferol (Vitamin D3) [Vitamin D3] 0 ml PO CLARIFY 08/12/23 [History Confirmed 08/12/23] Multivitamin 1 each PO DAILY 08/12/23 [History Confirmed 08/12/23] Allergies/Adverse Reactions: Allergies Allergy/AdvReac Type Severity Reaction Status Date / Time levofloxacin [From Levaquin] Allergy Mild Verified 08/12/23 22:39 morphine Allergy Verified 08/12/23 22:39 - Past Medical History Past Medical History: Yes Neurological History: No Pertinent History ENT History: No Pertinent History Cardiac History: Hypertension Respiratory History: No Pertinent History Endocrine Medical History: No Pertinent History Musculoskelatal History: No Pertinent History GI Medical History: Colitis History: No Pertinent History Pyscho-Social History: No Pertinent History Reproductive Disorders: Fibroids - Past Surgical History Past Surgical History: Yes Neuro Surgical History: No Pertinent History Cardiac History: No Pertinent History Respiratory Surgery: No Pertinent History GI Surgical History: Appendectomy, Cholecystectomy Genitourinary Surgical Hx: No Pertinent History Musculskeletal Surgical Hx: No Pertinent History, Orthopedic Surgery Female Surgical History: Hysterectomy Other Surgical History: FOOT SURGERY - Social History Smoking Status: Never smoker How long have you smoked: 4yrs Exposure to second hand smoke: No Alcohol: None Drug Use: none - Social Determinants of Health Will the patient participate in the screening: Yes Do you worry about a steady place to live?: No Do you have any problems with any of the following?: No known problems In the past 12 months,have you had to go without utilities?: No Have you or anyone in your house had to go without enough: No Transportation Issues: No Has anyone in your support network made you feel unsafe?: No - Physical Exam Vital Signs: Vital Signs - 24 hr Temp Pulse Resp BP BP Pulse Ox 08/13/23 02:00 68 20 145/90 96 08/13/23 01:30 70 18 145/92 95 08/13/23 01:12 98 08/13/23 01:00 73 20 158/97 98 08/13/23 00:30 76 20 136/79 98 08/13/23 00:00 74 18 142/88 100 08/12/23 23:47 69 20 157/92 100 08/12/23 23:00 66 18 168/103 100 08/12/23 22:56 67 20 162/103 97 08/12/23 22:43 99.6 F 100 H 20 198/123 98 General Appearance: no apparent distress, alert Neurologic Exam: alert, oriented x 3, cooperative, normal mood/affect, nml cerebellar function, nml station & gait, sensation nml, No motor deficits Eye Exam: PERRL/EOMI, eyes nml inspection Ears, Nose, Throat Exam: normal ENT inspection, TMs normal, pharynx normal, moist mucous membranes Neck Exam: normal inspection, non-tender, supple, full range of motion Respiratory Exam: normal breath sounds, lungs clear, No respiratory distress Cardiovascular Exam: regular rate/rhythm, normal heart sounds, normal peripheral pulses Gastrointestinal/Abdomen Exam: soft, normal bowel sounds, No tenderness, No mass Back Exam: normal inspection, normal range of motion, No CVA tenderness, No vertebral tenderness Extremity Exam: normal inspection, normal range of motion, pelvis stable Skin Exam: normal color, warm, dry, No rash Lymphatic Exam: No adenopathy Results - Radiology Impressions Radiology Exams & Impressions: Radiology Procedures Category Date Time Status LOWER EXTREMITY WO CONTRAST [CT] Stat Exams 08/12/23 23:12 Completed PELVIS WITHOUT CONTRAST [CT] Stat Exams 08/12/23 23:12 Completed Assessment/Plan (1) Fragmented bone Current Visit: Yes Status: Acute Assessment & Plan: 1. Pain control PRN 2. Ortho consulted, will see in the AM for surgical option Code(s): T14.8XXA - OTHER INJURY OF UNSPECIFIED BODY REGION, INITIAL ENCOUNTER Telemedicine Encounter - Telemedicine Encounter Telemedicine Encounter: The entirety of this encounter was performed via Telemedicine"
[2023-08-13] MEDS: Hydromorphone 1 mg/ml Injection IV PRN (07:32)
--- NOTE | 2023-08-13 08:58 | PCM.CONS ---
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 has no numbness or tingling. No back pain.Patient has been using crutches since Monday.She has no chest pain shortness of breath fevers or chills. Patient is diabetic and has hypertensionThyroid disorder Medications & Allergies Home Medications: Home Medication List Furosemide 40 mg [Lasix 40 MG] 40 mg PO DAILY 08/08/12 [History Confirmed 08/12/23] Levothyroxine Sodium [Synthroid] 100 mcg PO DAILY 08/09/12 [History Confirmed 08/12/23] Lisinopril 20 mg [Zestril 20 MG] 20 mg PO DAILY #30 tablet 08/20/18 [Rx Confirmed 08/12/23] Potassium Chloride Tab* [Klor Con] 10 meq PO DAILY 05/31/22 [History Confirmed 08/12/23] Semaglutide [Ozempic] 1 mg SQ WEEKLY 05/31/22 [History Confirmed 08/12/23] Cholecalciferol (Vitamin D3) [Vitamin D3] 0 ml PO CLARIFY 08/12/23 [History Confirmed 08/12/23] Multivitamin 1 each PO DAILY 08/12/23 [History Confirmed 08/12/23] Allergies/Adverse Reactions: Allergies Allergy/AdvReac Type Severity Reaction Status Date / Time levofloxacin [From Levaquin] Allergy Mild Verified 08/12/23 22:39 morphine Allergy Verified 08/12/23 22:39 - Past Medical History Past Medical History: Yes Neurological History: No Pertinent History ENT History: Cataracts Cardiac History: Hypertension Respiratory History: No Pertinent History Endocrine Medical History: Hypothyroidism Musculoskelatal History: No Pertinent History GI Medical History: Colitis History: No Pertinent History Pyscho-Social History: No Pertinent History Reproductive Disorders: Fibroids - Female History Are you now?: No - Past Surgical History Past Surgical History: Yes Neuro Surgical History: No Pertinent History Cardiac History: No Pertinent History Respiratory Surgery: No Pertinent History GI Surgical History: Appendectomy, Cholecystectomy Genitourinary Surgical Hx: No Pertinent History Musculskeletal Surgical Hx: No Pertinent History, Orthopedic Surgery Female Surgical History: Hysterectomy Other Surgical History: FOOT SURGERY - Social History Smoking Status: Never smoker How long have you smoked: 4yrs Exposure to second hand smoke: No Alcohol: None Drug Use: none - Social Determinants of Health Will the patient participate in the screening: Yes Do you worry about a steady place to live?: No Do you have any problems with any of the following?: No known problems In the past 12 months,have you had to go without utilities?: No Have you or anyone in your house had to go without enough: No Transportation Issues: No Has anyone in your support network made you feel unsafe?: No Does the patient want assistance with any of the above?: No - Nursing Vital Signs Nursing Vital Signs: Vital Signs - 24 hr Temp Pulse Resp BP BP Pulse Ox 08/13/23 07:09 98.2 F 75 16 150/89 99 08/13/23 03:24 98.7 F 68 18 141/91 96 08/13/23 02:30 60 18 126/86 96 08/13/23 02:00 68 20 145/90 96 08/13/23 01:30 70 18 145/92 95 08/13/23 01:12 98 08/13/23 01:00 73 20 158/97 98 08/13/23 00:30 76 20 136/79 98 08/13/23 00:00 74 18 142/88 100 08/12/23 23:47 69 20 157/92 100 08/12/23 23:00 66 18 168/103 100 08/12/23 22:56 67 20 162/103 97 08/12/23 22:43 99.6 F 100 H 20 198/123 98 - Physical Exam SpO2: 99 - Narrative Narrative Physical Exam: Ortho Physical Exam Pleasant female, no apparent stress, alert and orient x 3, lying in bed. Mildly obese Left hip shows no bruising swelling masses or erythema. Very tender with hip flexion or internal rotation along the groin.4/5Right leg raise actively.Good sensation 1+ dorsalis pedis pulse. 5/5 dorsiflexion plantarflexion the great toe. No edema Ligaments appear equal CT of left femur and pelvis are reviewed by me with enthesophytes along the greater trochanter and moderate hip DJD.No obvious fracture however there is a vertical line in the intertrochanteric region seen on 1 image on a coronal viewExtending to the piriformis fossa Assessment/Plan (1) Acute pain of left hip Current Visit: Yes Status: Acute Assessment & Plan: Patient may have a nondisplaced left proximal femur fractureOr pelvic fracture or Adductor strain. Will obtainLeft hip MRI tomorrow to look forFracture or strain. Patient will be made n.p.o. after midnight in case surgery is needed tomorrow. If she had a fracture of the proximal femur could require open reduction internal fixation or replacement depending on type of fracture. Patient will be toe-touch weight-bear with a walker on the left side until fracture is ruled out Code(s): M25.552 - PAIN IN LEFT HIP Results - Radiology Impressions Radiology Exams & Impressions: Radiology Procedures Category Date Time Status LOWER EXTREMITY WO CONTRAST [CT] Stat Exams 08/12/23 23:12 Completed PELVIS WITHOUT CONTRAST [CT] Stat Exams 08/12/23 23:12 Completed
[2023-08-13 09:04] LABS: Hematocrit 41.5 % (35-47); Hemoglobin 13.1 g/dL (12.0-16.0); Mean Cell Volume 81.1 fL (78-100); Mean Corpuscular Hemoglobin 25.6 pg (26-32); Mean Corpuscular Hgb Concent. 31.6 g/dL (32-36); Mean Platelet Volume 11.1 fL (7.5-11.0); Platelet Count 290 x10^3/uL (150-450); Red Blood Count 5.12 x10^6/uL (4.1-5.4); Red Cell Distribution Width 14.3 % (11.5-14.0); White Blood Count 8.9 x10^3/uL (4.0-10.5)
[2023-08-13 09:14] LABS: ALBUMIN 3.6 g/dL (3.5-5.0); ANION GAP 7.2 MEQ/L (5-15); Calcium 8.8 mg/dL (8.4-10.2); Creatinine 1 0.69 mg/dL (0.52-1.04); EST GLOMERULAR FILTRATION RATE 101.2 ML/MIN; Potassium 3.5 mmol/L (3.5-5.1); Total Protein 6.6 g/dL (6.3-8.2)
[2023-08-13] MEDS: Klor Con PO SCH (09:51)
[2023-08-13] MEDS: SYNTHROID 100 MCG PO SCH (09:51)
[2023-08-13] MEDS: THERAGRAN MULTIVITAMIN PO SCH (09:51)
[2023-08-13] MEDS: Zestril 20 MG PO SCH (09:51)
[2023-08-13] MEDS ORDERED: LEVOTHYROXINE SODIUM 200 MCG PO SCH (10:00)
[2023-08-13] MEDS ORDERED: NON-FORMULARY ITEM (Multivitamin [Multivitamin] 1 EACH Tablet) PO SCH (10:00)
[2023-08-13] MEDS: NORCO 7.5/325 MG TAB PO PRN (17:45)
[2023-08-13] MEDS: TYLENOL 325 MG PO PRN (20:37)
[2023-08-14 04:55] LABS: Hematocrit 39.3 % (35-47); Hemoglobin 12.5 g/dL (12.0-16.0); Mean Cell Volume 80.2 fL (78-100); Mean Corpuscular Hemoglobin 25.5 pg (26-32); Mean Corpuscular Hgb Concent. 31.8 g/dL (32-36); Mean Platelet Volume 10.9 fL (7.5-11.0); Platelet Count 279 x10^3/uL (150-450); Red Cell Distribution Width 14.4 % (11.5-14.0); White Blood Count 9.1 x10^3/uL (4.0-10.5)
[2023-08-14 05:35] LABS: ALBUMIN 3.2 g/dL (3.5-5.0); ANION GAP 6.8 MEQ/L (5-15); BILIRUBIN,TOTAL 0.5 mg/dL (0.2-1.3); Calcium 8.6 mg/dL (8.4-10.2); Creatinine 1 0.68 mg/dL (0.52-1.04); EST GLOMERULAR FILTRATION RATE 101.5 ML/MIN; Potassium 3.5 mmol/L (3.5-5.1); Total Protein 6.1 g/dL (6.3-8.2)
--- NOTE | 2023-08-14 05:54 | PCM.NOTE ---
Date and Time: 08/14/23 0551 Subjective Assessment: Ms. Wheeler is a 58 year old female that was admitted 08/13/23 to [facility] after presenting with complaints of left upper groin pain. CT enthesophytes along the greater trochanter and moderate hip DJD. No obvious fracture however there is a vertical line in the intertrochanteric region seen on 1 image on a coronal view extending to the piriformis fossa. Ortho has been consulted. Plan to obtain Left hip MRI today to evaluate for fracture/adductor strain. If she does have a fracture, patient may need open reduction ,internal fixation, or replacement depending on fracture type. She is fye-jczxl-drrhoy- bear with a walker on the left side until fracture is ruled out. 08/13: Met with patient bedside. Endorses pain has improved rating at 3/10 on numerical pain scale. Reports pain is relieved with weight bearing. MRI today, treatment plan pending results. - Review of Systems Constitutional: No Symptoms Eyes: No Symptoms Ears, Nose, & Throat: No Symptoms Respiratory: No Symptoms Cardiac: No Symptoms Abdominal/Gastrointestinal: No Symptoms Genitourinary Symptoms: No Symptoms Musculoskeletal: Joint Pain Skin: No Symptoms Neurological: No Symptoms Psychological: No Symptoms Endocrine: No Symptoms Hematologic/Lymphatic: No Symptoms Immunological/Allergic: No Symptoms Objective Exam General Appearance: no apparent distress Neurologic Exam: alert, oriented x 3, cooperative Eye Exam: PERRL Ears, Nose, Throat Exam: normal ENT inspection Neck Exam: normal inspection Respiratory Exam: normal breath sounds, lungs clear Cardiovascular Exam: regular rate/rhythm, normal heart sounds Gastrointestinal/Abdomen Exam: soft, normal bowel sounds Extremity Exam: limited range of motion (LLE) Back Exam: normal inspection Pelvic Exam: deferred Rectal Exam: deferred Objective Data Vital Signs: Vital Signs - 24 hr Temp Pulse Resp BP Pulse Ox 08/14/23 04:00 97.3 F 69 17 141/99 99 08/14/23 00:00 98.1 F 62 18 129/78 99 08/13/23 20:00 97.9 F 60 16 111/79 99 08/13/23 15:44 97.9 F 79 16 129/86 96 08/13/23 11:27 97.3 F 76 16 134/70 98 08/13/23 09:01 99 08/13/23 07:09 98.2 F 75 16 150/89 99 Pain Assessment - Last Documented Pain Intensity 0 Pain Scale Used 0-10 Pain Scale Intake and Output: Intake & Output 08/11/23 08/12/23 08/13/23 08/14/23 11:59 11:59 11:59 11:59 Intake Total 240 720 Output Total 2350 Balance 240 -1630 Weight 84.7 kg Lab Results: Lab Results-Last 24 Hours 08/13/23 08/13/23 08/13/23 Range/Units 08:42 08:42 09:33 WBC 8.9 (4.0-10.5) x10^3/uL RBC 5.12 (4.1-5.4) x10^6/uL Hgb 13.1 (12.0-16.0) g/dL Hct 41.5 (35-47) % MCV 81.1 (78-100) fL MCH 25.6 L (26-32) pg MCHC 31.6 L (32-36) g/dL RDW 14.3 H (11.5-14.0) % Plt Count 290 (150-450) x10^3/uL MPV 11.1 H (7.5-11.0) fL Sodium 139 (135-145) mmol/L Potassium 3.5 (3.5-5.1) mmol/L Chloride 105 (98-107) mmol/L Carbon Dioxide 30 (22-30) mmol/L Anion Gap 7.2 (5-15) MEQ/L BUN 19 H (7-17) mg/dL Creatinine 0.69 (0.52-1.04) mg/dL Estimated GFR 101.2 ML/MIN Glucose 92 (74-106) mg/dL POC Glucometer 81 (74 to 106) mg/dL Calcium 8.8 (8.4-10.2) mg/dL Total Bilirubin 1.00 (0.2-1.3) mg/dL AST 44 H (14-36) U/L ALT 26 (0-35) U/L Alkaline Phosphatase 98 (38-126) U/L Serum Total Protein 6.6 (6.3-8.2) g/dL Albumin 3.6 (3.5-5.0) g/dL 08/13/23 08/14/23 08/14/23 Range/Units 12:23 04:45 04:45 WBC 9.1 (4.0-10.5) x10^3/uL RBC 4.90 (4.1-5.4) x10^6/uL Hgb 12.5 (12.0-16.0) g/dL Hct 39.3 (35-47) % MCV 80.2 (78-100) fL MCH 25.5 L (26-32) pg MCHC 31.8 L (32-36) g/dL RDW 14.4 H (11.5-14.0) % Plt Count 279 (150-450) x10^3/uL MPV 10.9 (7.5-11.0) fL Sodium 139 (135-145) mmol/L Potassium 3.5 (3.5-5.1) mmol/L Chloride 106 (98-107) mmol/L Carbon Dioxide 30 (22-30) mmol/L Anion Gap 6.8 (5-15) MEQ/L BUN 17 (7-17) mg/dL Creatinine 0.68 (0.52-1.04) mg/dL Estimated GFR 101.5 ML/MIN Glucose 92 (74-106) mg/dL POC Glucometer 99 (74 to 106) mg/dL Calcium 8.6 (8.4-10.2) mg/dL Total Bilirubin 0.50 (0.2-1.3) mg/dL AST 88 H (14-36) U/L ALT 122 H (0-35) U/L Alkaline Phosphatase 145 H (38-126) U/L Serum Total Protein 6.1 L (6.3-8.2) g/dL Albumin 3.2 L (3.5-5.0) g/dL Radiology Exams: Radiology Procedures Category Date Time Status LOWER EXTREMITY WO CONTRAST [CT] Stat Exams 08/12/23 23:12 Completed MRI LOW EXT JOINT W/O CONTRAST [MRI] Routine Exams 08/14/23 09:04 Ordered PELVIS WITHOUT CONTRAST [CT] Stat Exams 08/12/23 23:12 Completed Assessment/Plan (1) Fragmented bone Current Visit: Yes Status: Acute Assessment & Plan: -Reviewed ortho documentation - agree with plan for MRI today to evaluate for fracture/strain and possible surgery pending MRI findings -Pain control -toe-touch weight-bear with a walker on the left side until fracture is ruled out Code(s): T14.8XXA - OTHER INJURY OF UNSPECIFIED BODY REGION, INITIAL ENCOUNTER (2) Transaminitis Current Visit: Yes Status: Acute Assessment & Plan: -Most likely reactive, will follow Code(s): R74.01 - ELEVATION OF LEVELS OF LIVER TRANSAMINASE LEVELS (3) Acute pain of left hip Current Visit: Yes Status: Acute Assessment & Plan: -Pain control -MRI pending -Ortho recs pending MRI results Code(s): M25.552 - PAIN IN LEFT HIP (4) Left groin pain Current Visit: Yes Status: Acute Assessment & Plan: -see above Code(s): R10.32 - LEFT LOWER QUADRANT PAIN
[2023-08-14 08:15] VITALS: TEMP 97.6
--- NOTE | 2023-08-14 15:07 | XRAY ---
Indication: Left hip pain following injury with drawer. Nonacute CT exam one day earlier. Axial and coronal MRI both hips performed without contrast using T1, T2, and STIR sequences. T2 fat sat images obtained through the left hip. Comparison: None Both hips are bilaterally symmetric without abnormal effusion. No acute fracture, suspicious bony lesions, bony remodeling, or evidence for avascular necrosis. Surrounding soft tissues demonstrates moderate sized 3.6 x 7.7 cm fatty right paramedian ventral hernia. No focal solid/cystic soft tissue mass or abnormal fluid collection. Visualized pelvic contents are unremarkable. Impression: 1. Negative MRI left hip. 2. Incidental fatty right paramedian ventral hernia.
--- NOTE | 2023-08-14 15:19 | PCM.DS ---
Discharge Summary Date of Admission: 08/13/23 02:56 Date of Discharge: August 14, 2023 Admitting Physician: PUJA AGUIRRE MD Consults: Consults on Case 08/13/23 02:[address] 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 She was [facility] By [facility] [place] [facility]. Started having painThe following day. Progressed to the point where she cannot weight-bear. She was admitted for possibl Fracture. Patient's pain is moderate at time of discharge but more severe she tried to weight-bear along the left groin.CT scan did not show fracture but MRI shows aFracture at the superior rami at the junction with the pubis Which is nond isplaced Plan is for patient to be dischargedToday. I did the discharge as the hospitalist has already gone home.She may continue with Tylenol and ibuprofen and weight-bear as tolerated with her crutches. She will remain off work for 1 week but could require longer than thisPossibly up to 2 months. She will be seen back by Luz Marina Bueno in 1 week to determine return to work status. Patient is discharged stable - Vitals & Intake/Output Vital Signs: Vital Signs Temperature 97.6 F 08/14/23 12:00 Pulse Rate 60 08/14/23 12:00 Respiratory Rate 20 08/14/23 12:00 Blood Pressure 135/71 08/14/23 12:00 O2 Sat by Pulse Oximetry 98 08/14/23 12:00 Intake & Output: Intake & Output 08/12/23 08/13/23 08/14/23 08/15/23 11:59 11:59 11:59 11:59 Intake Total 240 840 0 Output Total 2350 Balance 240 -1510 0 Weight 84.7 kg - Lab Result Diagrams: 08/14/23 04:45 08/14/23 04:45 Lab Results-Last 24 Hrs: Lab Results-Last 24 Hours 08/14/23 08/14/2308/13/24 Range/Units 04:45 04:45 12:11 WBC 9.1 (4.0-10.5) x10^3/uL RBC 4.90 (4.1-5.4) x10^6/uL Hgb 12.5 (12.0-16.0) g/dL Hct 39.3 (35-47) % MCV 80.2 (78-100) fL MCH 25.5 L (26-32) pg MCHC 31.8 L (32-36) g/dL RDW 14.4 H (11.5-14.0) % Plt Count 279 (150-450) x10^3/uL MPV 10.9 (7.5-11.0) fL Sodium 139 (135-145) mmol/L Potassium 3.5 (3.5-5.1) mmol/L Chloride 106 (98-107) mmol/L Carbon Dioxide 30 (22-30) mmol/L Anion Gap 6.8 (5-15) MEQ/L BUN 17 (7-17) mg/dL Creatinine 0.68 (0.52-1.04) mg/dL Estimated GFR 101.5 ML/MIN Glucose 92 (74-106) mg/dL POC Glucometer 87 (74 to 106) mg/dL Calcium 8.6 (8.4-10.2) mg/dL Total Bilirubin 0.50 (0.2-1.3) mg/dL AST 88 H (14-36) U/L ALT 122 H (0-35) U/L Alkaline Phosphatase 145 H (38-126) U/L Serum Total Protein 6.1 L (6.3-8.2) g/dL Albumin 3.2 L (3.5-5.0) g/dL - Radiology Exams Ordered Rad Exams-Entire Visit: Radiology Procedures Category Date Time Status LOWER EXTREMITY WO CONTRAST [CT] Stat Exams 08/12/23 23:12 Completed MRI LOW EXT JOINT W/O CONTRAST [MRI] Routine Exams 08/14/23 09:04 Completed PELVIS WITHOUT CONTRAST [CT] Stat Exams 08/12/23 23:12 Completed - Procedures and Test Procedures and Tests throughout Hospitalization: Therapy Orders & Screens 08/13/23 04:02 OT Screen per Nursing Assess ONCE Comment: Protocol Order Physician Instructions: Greater than 3 points order OT Admission Screening Reason For Exam: Triggered on Admission Diagnosis: left hip bone fragment Open Wound/Cellutlitis/Pressure Ulcers: No Acute Fx/ORIF/Change in wt bearing status: Yes Severe MUSCULOSKELETAL pain: Yes ADL Dysfunction: No Acute CVA w/Hemiparesis/Hemiplegia: No Decreased Functional Mobility/Strength: Yes Sprain/Strain: No Acute Post-op Mobility Dysfunction: No Total Points: 11 PT Screen per Nursing Assess ONCE Comment: Protocol Order Physician Instructions: Greater than 3 points order PT Admission Screenin Reason For Exam: Triggered on Admission Diagnosis: left hip bone fragment Open Wound/Cellutlitis/Pressure Ulcers: No Acute Fx/ORIF/Change in wt bearing status: Yes Severe MUSCULOSKELETAL pain: Yes ADL Dysfunction: No Acute CVA w/Hemiparesis/Hemiplegia: No Decreased Functional Mobility/Strength: Yes Sprain/Strain: No Acute Post-op Mobility Dysfunction: No Total Points: 11 Final Diagnosis/Problem List - Final Discharge Diagnosis/Problem (1) Acute pain of left hip Current Visit: Yes Status: Acute Code(s): M25.552 - PAIN IN LEFT HIP - Discharge Disposition: Home, Self-Care Condition: Good Prescriptions: No Action Furosemide 40 mg [Lasix 40 MG] 40 mg PO DAILY Levothyroxine Sodium [Synthroid] 100 mcg PO DAILY Lisinopril 20 mg [Zestril 20 MG] 20 mg PO DAILY #30 tablet Semaglutide [Ozempic] 1 mg SQ WEEKLY Potassium Chloride Tab* [Klor Con] 10 meq PO DAILY Multivitamin 1 each PO DAILY Cholecalciferol (Vitamin D3) [Vitamin D3] 0 ml PO CLARIFY Additional Instructions: Patient told she has a left superior pubic rami stress fractureWeight-bear as tolerated with the crutches. She will continue with Tylenol and ibuprofen for pain.Work at least 1 week. Return to see Luz Marina Araujo determine return to work status. Follow up with: VALENTIN HERNANDEZ MD [Primary Care Provider] - ROLO JUDD MD [ACTIVE STAFF] -
[2023-08-14 15:46] VITALS: BP 163/83; PULSE 75; RESP 16; O2SAT 93
--- NOTE | 2023-08-14 15:48 | PCM.DS ---
Discharge Summary Date of Admission: 08/13/23 02:56 Admitting Physician: PUJA AGUIRRE MD Consults: Consults on Case 08/13/23 02:56 Consult Ortho ROUTINE Primary Care Provider: VALENTIN HERNANDEZ ANTOINE Allergies Allergies levofloxacin [From Levaquin] Allergy (Mild, Verified 08/12/23 22:39) rash, itching morphine Allergy (Verified 08/12/23 22:39) Hospital Summary - Hospital Course Hospital Course: Ms. Wheeler is a 58 year old female that was admitted 08/13/23 to [facility] after presenting with complaints of left upper groin pain. CT enthesophytes along the greater trochanter and moderate hip DJD. No obvious fracture however there is a vertical line in the intertrochanteric region seen on 1 image on a coronal view extending to the piriformis fossa. MRI demonstrates a nondisplaced Fracture at the superior rami at the junction with the pubis. She has been cleared by Ortho for discharge with instruction for WBAT with crutches, tylenol/Ibuprofen for pain, and she will remain off work for 1 week but could require longer than this up to 2 months. She is to follow up with Wesley Mcintosh in 1 week to determine return to work status. Discharge Note New Diagnosis: New Medications: Follow Up: Results pending: Outpatient testing to order: Latest Assessment & Plan (1) Fragmented bone Current Visit: Yes Status: Acute Assessment & Plan: -Reviewed ortho documentation -agree with plan- MRI findings showing non- displaced fracture at the superior rami at the junction with the pubis. -Follow up OP with Wesley Mcintosh in one week -Pain control with tylenol/ibuprofen -WBAT with crutches Code(s): T14.8XXA - OTHER INJURY OF UNSPECIFIED BODY REGION, INITIAL ENCOUNTER (2) Transaminitis Current Visit: Yes Status: Acute Assessment & Plan: -Most likely reactive, will follow Code(s): R74.01 - ELEVATION OF LEVELS OF LIVER TRANSAMINASE LEVELS (3) Acute pain of left hip Current Visit: Yes Status: Acute Assessment & Plan: -see above Code(s): M25.552 - PAIN IN LEFT HIP (4) Left groin pain Current Visit: Yes Status: Acute Assessment & Plan: -see above I spent 35 minutes [id number] with the patient on the day of discharge perfo rming discharge exam, discussing hospital stay and discharge instructions with patient and caregivers, preparation of discharge records, prescriptions & referral forms and addressing any questions/concerns the patient had as documented above. - Vitals & Intake/Output Vital Signs: Vital Signs Temperature 97.6 F 08/14/23 12:00 Pulse Rate 60 08/14/23 12:00 Respiratory Rate 20 08/14/23 12:00 Blood Pressure 135/71 08/14/23 12:00 O2 Sat by Pulse Oximetry 98 08/14/23 12:00 Intake & Output: Intake & Output 08/12/23 08/13/23 08/14/23 08/15/23 11:59 11:59 11:59 11:59 Intake Total 240 840 0 Output Total 2350 Balance 240 -1510 0 Weight 84.7 kg - Lab Result Diagrams: 08/14/23 04:45 08/14/23 04:45 Lab Results-Last 24 Hrs: Lab Results-Last 24 Hours 08/14/23 08/14/23 08/14/23 Range/Units 04:45 04:45 12:11 WBC 9.1 (4.0-10.5) x10^3/uL RBC 4.90 (4.1-5.4) x10^6/uL Hgb 12.5 (12.0-16.0) g/dL Hct 39.3 (35-47) % MCV 80.2 (78-100) fL MCH 25.5 L (26-32) pg MCHC 31.8 L (32-36) g/dL RDW 14.4 H (11.5-14.0) % Plt Count 279 (150-450) x10^3/uL MPV 10.9 (7.5-11.0) fL Sodium 139 (135-145) mmol/L Potassium 3.5 (3.5-5.1) mmol/L Chloride 106 (98-107) mmol/L Carbon Dioxide 30 (22-30) mmol/L Anion Gap 6.8 (5-15) MEQ/L BUN 17 (7-17) mg/dL Creatinine 0.68 (0.52-1.04) mg/dL Estimated GFR 101.5 ML/MIN Glucose 92 (74-106) mg/dL POC Glucometer 87 (74 to 106) mg/dL Calcium 8.6 (8.4-10.2) mg/dL Total Bilirubin 0.50 (0.2-1.3) mg/dL AST 88 H (14-36) U/L ALT 122 H (0-35) U/L Alkaline Phosphatase 145 H (38-126) U/L Serum Total Protein 6.1 L (6.3-8.2) g/dL Albumin 3.2 L (3.5-5.0) g/dL - Radiology Exams Ordered Rad Exams-Entire Visit: Radiology Procedures Category Date Time Status LOWER EXTREMITY WO CONTRAST [CT] Stat Exams 08/12/23 23:12 Completed MRI LOW EXT JOINT W/O CONTRAST [MRI] Routine Exams 08/14/23 09:04 Completed PELVIS WITHOUT CONTRAST [CT] Stat Exams 08/12/23 23:12 Completed - Procedures and Test Procedures and Tests throughout Hospitalization: Therapy Orders & Screens 08/13/23 04:02 OT Screen per Nursing Assess ONCE Comment: Protocol Order Physician Instructions: Greater than 3 points order OT Admission Screening Reason For Exam: Triggered on Admission Diagnosis: left hip bone fragment Open Wound/Cellutlitis/Pressure Ulcers: No Acute Fx/ORIF/Change in wt bearing status: Yes Severe MUSCULOSKELETAL pain: Yes ADL Dysfunction: No Acute CVA w/Hemiparesis/Hemiplegia: No Decreased Functional Mobility/Strength: Yes Sprain/Strain: No Acute Post-op Mobility Dysfunction: No Total Points: 11 PT Screen per Nursing Assess ONCE Comment: Protocol Order Physician Instructions: Greater than 3 points order PT Admission Screenin Reason For Exam: Triggered on Admission Diagnosis: left hip bone fragment Open Wound/Cellutlitis/Pressure Ulcers: No Acute Fx/ORIF/Change in wt bearing status: Yes Severe MUSCULOSKELETAL pain: Yes ADL Dysfunction: No Acute CVA w/Hemiparesis/Hemiplegia: No Decreased Functional Mobility/Strength: Yes Sprain/Strain: No Acute Post-op Mobility Dysfunction: No Total Points: 11 Discharge Exam General Appearance: no apparent distress Neurologic Exam: alert, oriented x 3, cooperative Eye Exam: PERRL Ears, Nose, Throat Exam: normal ENT inspection Neck Exam: normal inspection Respiratory Exam: normal breath sounds, lungs clear Cardiovascular Exam: regular rate/rhythm, normal heart sounds Gastrointestinal/Abdomen Exam: soft, normal bowel sounds Pelvic Exam: deferred Rectal Exam: deferred Back Exam: normal inspection Extremity Exam: limited range of motion (LLE) Skin Exam: normal color Final Diagnosis/Problem List - Final Discharge Diagnosis/Problem (1) Fragmented bone Current Visit: Yes Status: Acute Code(s): T14.8XXA - OTHER INJURY OF UNSPECIFIED BODY REGION, INITIAL ENCOUNTER (2) Transaminitis Current Visit: Yes Status: Acute Code(s): R74.01 - ELEVATION OF LEVELS OF LIVER TRANSAMINASE LEVELS (3) Acute pain of left hip Current Visit: Yes Status: Acute Code(s): M25.552 - PAIN IN LEFT HIP (4) Left groin pain Current Visit: Yes Status: Acute Code(s): R10.32 - LEFT LOWER QUADRANT PAIN - Discharge Disposition: Home, Self-Care Condition: Good Prescriptions: Continue Furosemide 40 mg [Lasix 40 MG] 40 mg PO DAILY Levothyroxine Sodium [Synthroid] 100 mcg PO DAILY Lisinopril 20 mg [Zestril 20 MG] 20 mg PO DAILY #30 tablet Semaglutide [Ozempic] 1 mg SQ WEEKLY Potassium Chloride Tab* [Klor Con] 10 meq PO DAILY Multivitamin 1 each PO DAILY Cholecalciferol (Vitamin D3) [Vitamin D3] 0 ml PO CLARIFY Additional Instructions: Patient told she has a left superior pubic rami stress fractureWeight-bear as tolerated with the crutches. She will continue with Tylenol and ibuprofen for pain.Work at least 1 week. Return to see Wesley Araujo determine return to work status. Follow up with: ROLO AMANDA MD [ACTIVE STAFF] - 08/22/23 9:30 am (PATIENT WILL SEE WESLEY MCINTOSH) VALENTIN HERNANDEZ MD [Primary Care Provider] - 08/17/23 2:00 pm
== END 2023-08-14 18:36 | disposition home or self-care (01) ==
LOC: ED 22:30 → MED SURG 08-13 02:56
PROVIDERS: ADMIT Student in an Organized Health Care Education/Training Program; ATTEND Student in an Organized Health Care Education/Training Program
DX: S32.512A Fracture of superior rim of left pubis, initial encounter for closed fracture (principal); R74.01 Elevation of levels of liver transaminase levels; M25.552 Pain in left hip; R10.32 Left lower quadrant pain; I10 Essential (primary) hypertension; Z79.899 Other long term (current) drug therapy
CPT/HCPCS: 36415; 72192; 73700; 73721; 80053; 82947; 85027; 96372; 96374; 99221; 99231; 99284; G0378; Q3014; J1170; J1885; J3010; A9270-GY

== ENCOUNTER 2024-03-21 06:01 | Day surgery (SDC) | payer OTHER ==
--- NOTE | 2024-03-20 09:36 | HP ---
HISTORY OF PRESENT ILLNESS: The patient is a 58-year-old female, presents with complaint of a hernia. She had a hysterectomy in 2012, and since then she feels a bulge. She had a pelvic fracture in July and has some pelvic pain. She did have a CAT scan, it said she had a hernia. PAST MEDICAL HISTORY: GERD, hypertension, thyroid, diabetes. HOME MEDICATIONS: Ozempic, iron, levothyroxine, lisinopril, Lasix, pantoprazole. ALLERGIES: Dilaudid, Levaquin, morphine, Wayne. PAST SURGICAL HISTORY: Hysterectomy, cholecystectomy. SOCIAL HISTORY: Negative. FAMILY HISTORY: Heart disease, hypertension, diabetes. REVIEW OF SYSTEMS: CONSTITUTIONAL: Denies fever or chills. CHEST: Denies shortness of breath. CARDIOVASCULAR: Denies chest pain. ABDOMEN: Reports ventral hernia pain. PHYSICAL EXAMINATION: GENERAL: No acute distress. CARDIOVASCULAR: Regular rate and rhythm. RESPIRATORY: Nonlabored. No shortness of breath. ABDOMEN: Soft. She has a midline incision with a right lateral bulge that is palpable, ventral hernia. It is tender. It is incarcerated with fat. IMPRESSION: Ventral hernia, moderately sized. PLAN: Ventral hernia repair with possible mesh with Dr. Josh Chilel. This report was dictated for Dr. Chilel by Rachel Naylor NP.
[2024-03-21] MEDS ORDERED: CEFAZOLIN 2 GM/100 ML NaCl 2 GM/100 ML IVPB IV ONE (06:21)
[2024-03-21 06:42] VITALS: RESP 16
[2024-03-21] MEDS: CEFAZOLIN 2 GM/100 ML NaCl 2 GM/100 ML IVPB IV SCH (06:48)
[2024-03-21] MEDS: Lactated Ringers 1,000 ML IV SCH (06:49)
[2024-03-21 07:01] LABS: Hematocrit 40.1 % (34.1-44.9); Hemoglobin 13.1 g/dL (11.2-15.7); Mean Cell Volume 81.8 fL (79.4-94.8); Mean Corpuscular Hemoglobin 26.7 pg (25.6-32.2); Mean Corpuscular Hgb Concent. 32.7 g/dL (32.2-35.5); Mean Platelet Volume 10.2 fL (9.4-12.3); Platelet Count 287 x10^3/uL (182-369); Red Cell Distribution Width 13.8 % (11.7-14.4); White Blood Count 8.4 x10^3/uL (3.98-10.04)
[2024-03-21] MEDS ORDERED: Sensorcaine 0.25% 10 ML ONE (07:24)
[2024-03-21 07:39] LABS: ANION GAP 9.6 MEQ/L (5-15); Calcium 9.1 mg/dL (8.4-10.2); Creatinine 1 0.71 mg/dL (0.52-1.04); EST GLOMERULAR FILTRATION RATE 99.1 ML/MIN; Potassium 3.5 mmol/L (3.5-5.1)
[2024-03-21] MEDS ORDERED: DIPRIVAN 200 MG/20 ML IV ONE (07:46)
[2024-03-21] MEDS ORDERED: ROCURONIUM BROMIDE IV ONE (07:47)
[2024-03-21] MEDS ORDERED: Zofran 4 MG/2 ML VIAL ONE (07:47)
[2024-03-21] MEDS ORDERED: Decadron 4 MG INJ ONE (07:47)
[2024-03-21] MEDS ORDERED: SUBLIMAZE 100 MCG/2 ML ONE ×2 (07:52→10:21)
[2024-03-21] MEDS ORDERED: Xylocaine-Mpf 2% 5 Ml Vial ONE (08:00)
[2024-03-21] MEDS ORDERED: BRIDION 200MG/2ML IV ONE (08:32)
[2024-03-21] MEDS ORDERED: TORAdol 30 mg Injection ONE (09:34)
[2024-03-21 11:14] VITALS: TEMP 97.8
[2024-03-21 11:38] VITALS: BP 130/78; PULSE 72; O2SAT 98
--- NOTE | 2024-03-22 11:10 | OP ---
SURGERY DATE/TIME: 03/21/2024 [id number] PREOPERATIVE DIAGNOSIS: Symptomatic ventral hernia. POSTOPERATIVE DIAGNOSIS: Symptomatic ventral hernia. PROCEDURE: Primary open ventral herniorrhaphy with no mesh. SURGEON: Josh Chilel MD ANESTHESIA: General. BLOOD LOSS: None. COMPLICATIONS: None. CONDITION: Stable. INDICATIONS: Patient with symptomatic lower abdominal wall hernia. She had a hysterectomy back in 2022. It is getting a little progressive. Her last CT scan did show a loop of bowel in it. DESCRIPTION OF PROCEDURE AND FINDINGS: She was taken to surgery, was marked preoperatively. It was pretty much in the center of the previous hysterectomy lower midline incision, leaning just a little to the right. Four inches of the midline was reopened. The hernia was long. It was about 6 inches long. Initially, there was omentum and at the bottom there was a loop of bowel. It was dissected off the rim. It was felt to be free from the rim and was able to be tucked back in. The hernia sac was taken. It was not necessary to take any omentum. The field was dry. At this time, it was closed transversely with a running suture and then with 0 Prolene with good solid bites and no tension. It was irrigated. Skin closed with vertical mattress sutures, 3-0 Prolene, and cherelle. Findings discussed with the family in the waiting room. Abdominal binder was placed on the table.
== END 2024-03-21 11:44 | disposition home or self-care (01) ==
LOC: SDC 06:01
PROVIDERS: ATTEND Surgery
DX: K43.9 Ventral hernia without obstruction or gangrene (principal)
CPT/HCPCS: 36415; 80048; 85027; 93005; J0690; J1100; J1885; J2405; J2704; J3010; L0625

== ENCOUNTER 2024-07-22 16:25 | Emergency (ER) | payer OTHER ==
--- NOTE | 2024-07-22 16:34 | ERPHSYRPT ---
- History of Present Illness Time Seen by Provider: 07/22/24 16:33 Historian: patient, family Exam Limitations: no limitations Physician History: This is a 59-year-old white female patient of Dr. Martínez who presents with approximately 2-day history of back pain as well as abdominal pain specifically with movement. Patient did have an umbilical hernia repair in March 2022. Patient has not done any sudden heavy lifting. She has not fallen. Patient states that she was seen by her primary care provider today who ordered several tests. I reviewed these outpatient studies and interpreted them. The patient's CBC, CMP, amylase and lipase studies did not show any acute emergent medical issues. I also reviewed the radiologist's impression of the CT scan of the abdomen and pelvis that was performed today and compared to the similar study dated October 04, 2023. The impression states continued negative renal calculus or evidence for obstructive uropathy. There appears to be a postsurgical hematoma/seroma measuring 2.0 x 4.6 cm. Infected fluid collection/abscess is not completely excluded on that noncontrast exam. The patient has a history of hypertension, type 2 diabetes, hypothyroidism, colitis and degenerative disc disease. Patient describes the pain as sharp with movement. Patient denies chest pain and she denies shortness of breath. She has not had a cough. She denies fever. She has no vomiting or diarrhea symptoms. Timing/Duration: day(s) (2) Activities at Onset: activity Quality: sharpness (Worsens pain), stabbing Abdominal Pain Onset Location: RUQ, LUQ, RLQ, LLQ Severity of Pain-Max: moderate Severity of Pain-Current: moderate (With movement) Modifying Factors: Improves With: rest (Improves the pain) Associated Symptoms: No chest pain, No diarrhea, No nausea, No shortness of breath, No vomiting, No weakness Allergies/Adverse Reactions: levofloxacin [From Levaquin] Allergy (Mild, Verified 07/22/24 16:48) rash, itching hydromorphone [From Dilaudid] Allergy (Verified 07/22/24 16:48) Vomiting morphine Allergy (Verified 07/22/24 16:48) chest pain Home Medications: Furosemide 40 mg [Lasix 40 MG] 40 mg PO DAILY 08/08/12 [History] Levothyroxine Sodium [Synthroid] 100 mcg PO DAILY 08/09/12 [History] Potassium Chloride Tab* [Klor Con] 10 meq PO DAILY 05/31/22 [History] Semaglutide [Ozempic] 1 mg SQ WEEKLY 05/31/22 [History] Cholecalciferol (Vitamin D3) [Vitamin D3] 0 ml PO CLARIFY 08/12/23 [History] Lisinopril 20 mg [Zestril 20 MG] 10 mg PO DAILY 03/21/24 [History] Hx Tetanus, Diphtheria Vaccination/Date Given: Yes Hx Influenza Vaccination/Date Given: Yes Hx Pneumococcal Vaccination/Date Given: No Travel Risk - Emerging Infectious Disease Are you exhibiting symptoms associated with any current EIDs: No - Review of Systems Constitutional: No Symptoms Eyes: No Symptoms Ears, Nose, & Throat: No Symptoms Respiratory: No Symptoms Cardiac: No Symptoms Abdominal/Gastrointestinal: Abdominal Pain Genitourinary Symptoms: No Symptoms Musculoskeletal: Back Pain Skin: No Symptoms Neurological: No Symptoms Psychological: No Symptoms Endocrine: No Symptoms Hematologic/Lymphatic: No Symptoms Immunological/Allergic: No Symptoms All Other Systems: Reviewed and Negative - Past Medical History Pertinent Past Medical History: Yes Neurological History: No Pertinent History ENT History: Cataracts Cardiac History: Hypertension Respiratory History: No Pertinent History Endocrine Medical History: Diabetes Type II, Hypothyroidism Musculoskeletal History: Osteoarthritis GI Medical History: Colitis History: No Pertinent History Psycho-Social History: No Pertinent History Female Reproductive Disorders: Fibroids Other Medical History: DEGENERATIVE CHANGES IN THE L-SPINE. L5-S1 ARTHROPATIC CHANGES AND L5 ANTEROLISITHESIS. Hypokalemia, Anemia - Past Surgical History Past Surgical History: Yes Neuro Surgical History: No Pertinent History Cardiac: No Pertinent History Respiratory: No Pertinent History Gastrointestinal: Appendectomy, Cholecystectomy Genitourinary: No Pertinent History Musculoskeletal: No Pertinent History, Orthopedic Surgery Female Surgical History: Hysterectomy Other Surgical History: FOOT SURGERY - Social History Drug Use: none - Social Determinants of Health Will the patient participate in the screening: Yes Do you worry about a steady place to live?: No In the past 12 months,have you had to go without utilities?: No Transportation Issues: No Has anyone in your support network made you feel unsafe?: No Have you or anyone in your house had to go w/o enough food: No - Nursing Vital Signs Nursing Vital Signs: Initial Vital Signs Temperature 98.3 F 07/22/24 16:42 Pulse Rate 76 07/22/24 16:42 Respiratory Rate 16 07/22/24 16:42 Blood Pressure 149/97 07/22/24 16:42 O2 Sat by Pulse Oximetry 98 07/22/24 16:42 Pain Scale Pain Intensity 8 - Physical Exam General Appearance: no apparent distress, alert, anxiety Eye Exam: PERRL/EOMI, eyes nml inspection Ears, Nose, Throat Exam: normal ENT inspection, moist mucous membranes Neck Exam: normal inspection, non-tender, supple, full range of motion Respiratory Exam: normal breath sounds, lungs clear, airway intact, No chest tenderness, No respiratory distress Cardiovascular Exam: regular rate/rhythm, normal heart sounds, normal peripheral pulses Gastrointestinal/Abdomen Exam: soft, normal bowel sounds, tenderness (Mild generalized anterior abdomen), No guarding, No rebound Pelvic Exam: not done Rectal Exam: not done Back Exam: normal inspection, normal range of motion, No CVA tenderness, No vertebral tenderness Extremity Exam: normal inspection, normal range of motion, pelvis stable Neurologic Exam: alert, oriented x 3, cooperative, 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 consultant II-XII nml as tested, nml cerebellar function, nml station & gait, sensation nml Skin Exam: normal color, warm, dry, other (No changes at the umbilical hernia repair site) Lymphatic Exam: No adenopathy SpO2 Interpretation: normal O2 Delivery: Room Air - Course Nursing assessment & vital signs reviewed: Yes Ordered Tests: Active Orders 24 hr Category Date Time Status UA W/RFX UR CULTURE Stat Lab 07/22/24 17:53 Completed Lab/Rad Data: Laboratory Results 07/22/24 Range/Units 17:53 Urine Color Dark Yellow A (Yellow) Urine Appearance Clear (Clear) Urine pH 5.5 (4.6-8.0) Ur Specific [place] >=1.030 A (1.005-1.030) Urine Protein Negative (Negative) Urine Glucose (UA) Negative (Negative) mg/dL Urine Ketones 15 A (Negative) Urine Blood Negative (Negative) Urine Nitrite Negative (Negative) Urine Bilirubin Negative (Negative) Urine Urobilinogen 1.0 A (0.2) mg/dL Ur Leukocyte Esterase Trace A (Negative) U Hyaline Cast (Auto) NONE SEEN (0-2) /LPF Urine Microscopic RBC 0-2 (0-5) /HPF Urine Microscopic WBC 0-2 (0-5) /HPF Ur Epithelial Cells Rare (None Seen) /HPF Urine Bacteria None Seen (None Seen) /HPF Urine Culture Reflexed NO (NO) - Progress Progress: unchanged Progress Note: 07/22/24 18:53 My medical decision making and the assignment of moderate complexity to this patient's workup today is based on review of the patient's past medical history, review of the patient's medication list, review the patient drug allergy list, history present illness and physical findings on examination. The out patient results from the workup today was reviewed and interpreted by me. I spoke with Dr. Michael Chilel who is a general surgeon on-call today for the [facility] which is the group that physician performed the surgery in this patient in March 2024. I reviewed the laboratory data workup, the physical findings of the patient, the radiographic/CT scan of the abdomen pelvis impression that the radiologist interpreted and he wants to see the patient on 07/25/2024 at the [facility]. He has no specific instructions or intervention based on those findings reported to him. She is to call the office on 07/24/2024, the day prior to her appointment on , 07/25/2024 07/22/24 18:57 I will prescribe outpatient cephalexin 500 mg 3 times a day for 5 days to prophylactically treat the fluid collection that is present postoperatively. Likely this is a hematoma/seroma. However the patient is diabetic and we will cover her bacterial infection if it is present. The patient is to not fill her Macrobid antibiotic as the urinalysis from this evening shows no urinary tract infection. The patient was offered a prescription for narcotic such as tramadol or [place] 5/325. She only wants plain Tylenol and ibuprofen for pain control. Counseled pt/family regarding: lab results, diagnosis, need for follow-up, rad results Medical Desision Making - Diagnostic Testing Diagnostic test were ordered, analyzed, and reviewed by me: Yes Radiological Interpretation: Reviewed by me, Teleradiologist Report - Risk of complications The pt has a mod risk of morbidity or mortality based on: Need for prescription drug management - Departure Departure Disposition: Home Clinical Impression: Postoperative seroma Condition: Stable Critical Care Time: No Referrals: VALENTIN MARTÍNEZ MD [Primary Care Provider] - Follow up/PCP as directed Additional Instructions: Take all your medications as prescribed. Take your new antibiotic, Keflex, as prescribed. Do not fill the Macrobid prescription. Call Dr. Michael Chilel's office in [facility] on 07/24/2024, and tell the office he wants to see you on , 07/25/2024. Keep that appointment date and time.
[2024-07-22 16:56] VITALS: TEMP 98.3
[2024-07-22 18:07] LABS: Appearance Clear (Clear); Bacteria None Seen /HPF (None Seen); Bilirubin Negative (Negative); Blood Negative (Negative); Epithelial Cells Rare /HPF (None Seen); Glucose, Urine Negative (Negative); Hyaline Casts NONE SEEN /LPF (0-2); Ketones 15 (Negative); Leukocyte Esterase Trace (Negative); Nitrite Negative (Negative); Ph 5.5 (4.6-8.0); Protein,Urine Dip Negative (Negative); RBC 0-2 /HPF (0-5); Specific Gravity >=1.030 (1.005-1.030); WBC 0-2 /HPF (0-5)
[2024-07-22 19:11] VITALS: RESP 18
[2024-07-22 19:33] VITALS: BP 127/82; PULSE 76; O2SAT 97
== END 2024-07-22 19:40 | disposition home or self-care (01) ==
LOC: ED 16:25
DX: L76.34 Postprocedural seroma of skin and subcutaneous tissue following other procedure (principal); R10.9 Unspecified abdominal pain; M54.9 Dorsalgia, unspecified; I10 Essential (primary) hypertension; E11.9 Type 2 diabetes mellitus without complications; Z79.85 Long-term (current) use of injectable non-insulin antidiabetic drugs; Z79.899 Other long term (current) drug therapy
CPT/HCPCS: 81001; 99283